=== PATIENT | female | born 1940 | race Caucasian/White ===

== ENCOUNTER → 2016-02-19 | Outpatient (CLI) | payer OTHER, MEDICAID ==
[~2016-02-19] MED LIST: ACETAMINOPHEN-H1 TA2 PO; ASPIRIN CHILDRE81 MG PO; AUGMENTIN 875 M1 TAB PO; BACTROBAN OINT22 GM PO; CLARITIN10 MG PO; COZAAR100 MG PO; COZAAR50 M1 PO; CRESTOR10 MG PO; CRESTOR20 M1 PO; CRESTOR5 MG PO; DARVOCET N 1001 TAB PO; DIAZEPAM5 MG/5 M1 PO; DILANTIN PO; DITROPAN XL5 MG PO; EVISTA60 MG PO; HUMALOG100 U/ML SC; IMDUR SA30 MG PO; JANUVIA25 MG PO; JANUVIA50 MG PO; KEFLEX500 MG PO; LANTUS100 U/ML SC; LANTUS100 U/ML SQ; LEVEMIR10 ML SC; LIPITOR40 MG PO; LOPRESSOR25 MG PO; MAPAP325 MG PO; MECLIZINE HCL25 M2 PO; MIDODRINE HCL5 M1 PO; NEURONTIN300 MG PO; NEXIUM40 MG PO; NITROLINGUAL NAS; NORVASC5 MG PO; OMEPRAZOLE20 M2 PO; OXYBUTYNIN5 MG PO; PAROXETINE10 MG PO; PLAVIX75 M1 PO; PLAVIX75 MG PO; PROAIR HFA8.5 GM IH; RANEXA1000 MG PO; SYNTHROID,LEV100 MCG PO; TRAD5TAB1 PO; TRESIBA FL100 UNIT/1 SQ; VITAMIN C500 M4 PO; VITAMIN D1000 IU PO; ZOFRAN ODT4 MG SL
--- NOTE | ~2016-02-19 | PF ---
[place], [place] PULMONARY FUNCTION TEST [facility]: [id number] UNIT #: [id number] ROOM: DOCTOR: TEE RAMIREZ MD,HERRERA BIRTHDATE: [birth year] DOS: 02/19/2016 SPIROMETRY ORDERED BY: Dr. Tovar HISTORY: The patient was recorded as a 75-year-old outpatient, female, height of 62 inches, weight of 166 pounds. BMI noted at 29.9. The test was done for assessment of symptoms of shortness of breath with productive cough and frequent wheezing. The patient was not noted with any past history of tobacco use as well. Spirometry for this patient shows FVC of 1.75 liters at 67% predicted value, mild to moderately decreased. The FEV1 was recorded at 1.34 liters at 69% predicted value, mildly decreased with mild improvement occurred for the patient with bronchodilator of 11%, which does not meet ATS criteria of improvement in the FEV1. Ratio of FEV1/FVC was recorded at 76%. Flow volume was suggestive of obstructive airway pattern. FINAL IMPRESSION: The test was suggestive of mild obstructive lung disease for the patient. Clinical correlation would be advised. HERRERA OLIVEIRA MD CM:PFREPORT:PULMONARY FUNCTION TEST [id number] HERRERA RAMIREZ MD
== END | disposition home or self-care (01) ==
LOC: CP 10:14
DX: R06.02 Shortness of breath (principal)

== ENCOUNTER → 2016-02-21 | Outpatient (CLI) | payer OTHER, MEDICAID | END | disposition home or self-care (01) | LOC: CARD 01:14 | DX: R06.02 Shortness of breath (principal) ==

== ENCOUNTER → 2016-06-03 | Outpatient (CLI) | payer OTHER, MEDICAID ==
[2016-06-03 10:56] LABS: FERRITIN 52.1 ng/mL (10.0-291.0)
== END | disposition home or self-care (01) ==
LOC: LAB 08:41
PROVIDERS: Internal Medicine
DX: R89.9 Unspecified abnormal finding in specimens from other organs, systems and tissues (principal); D63.8 Anemia in other chronic diseases classified elsewhere

== ENCOUNTER → 2016-06-18 | Day surgery (SDC) | payer OTHER, MEDICAID ==
[~2016-06-18] MED LIST changes: +COZAAR25 M1 PO; +STIOLTO RESPIMAT4 GM IH; +TYLENOL EXTRA500 M2 PO
--- NOTE | ~2016-06-18 | PROC NOTE ---
[place], [place] PROCEDURE NOTE NAME: MARIA DEL CARMEN PLATA UNIT #: [id number] ROOM: DOCTOR: SIMON GARRETT MD,RENA BIRTHDATE: [birth year] DOS: 06/18/2016 Bone marrow aspiration performed because of the indication of anemia. The patient placed in the right lateral position, left posterior iliac vein crest area was cleaned with Betadine and alcohol. Novocain injected. The periosteum was infiltrated with Novocain. Bone marrow aspiration obtained. The patient tolerated the procedure well and left. ISAÍAS MONTES MD CM:PROCNOTE:PROCEDURE NOTE [id number] RENA GARRETT MD
[2016-06-18 08:14] VITALS: BP 157/47
[2016-06-18 09:01] LABS: HEMATOCRIT 24.6 % (37.0-47.0); HEMOGLOBIN 8.3 g/dl (12.0-16.0); MEAN CELL VOLUME 103.8 fl (81.0-99.0); MEAN CORPUSCULAR HGB CONC 33.7 g/dl (33.0-37.0); MEAN PLATELET VOLUME 10.3 fl (9.6-12.3); PLATELET COUNT AUTOMATED 82 10*3/uL (130-400); RED BLOOD COUNT 2.37 10*6/uL (4.10-5.10); WHITE BLOOD COUNT 5.7 10*3/uL (4.8-10.8)
[2016-06-18 09:48] LABS: ATYPICAL LYMPHS 1 % (0-0); EOSINOPHIL # 0.2 10*3/uL (0-0.4); EOSINOPHILS 4 % (1-4); LYMPHOCYTE # 1.2 10*3/uL (1.3-4.4); METAMYELOCYTES 1 % (0-0); MONOCYTE # 0.5 10*3/uL (0.1-1.0); NEUTROPHIL # 3.8 10*3/uL (2.3-7.9); NEUTROPHILS 66 % (47-73); PLATELET SUFFICIENCY LOW (NORMAL); TOTAL CELLS COUNTED 100 #CELLS
[2016-06-18 09:49] LABS: HYPOCHROMIA SLIGHT
== END | disposition home or self-care (01) ==
LOC: SDC 07:53
PROVIDERS: Internal Medicine
DX: D64.9 Anemia, unspecified (principal); I25.2 Old myocardial infarction; J44.9 Chronic obstructive pulmonary disease, unspecified; F41.9 Anxiety disorder, unspecified; I10 Essential (primary) hypertension; E03.9 Hypothyroidism, unspecified; Z86.73 Personal history of transient ischemic attack (TIA), and cerebral infarction without residual deficits; Z90.710 Acquired absence of both cervix and uterus; J45.909 Unspecified asthma, uncomplicated; E11.40 Type 2 diabetes mellitus with diabetic neuropathy, unspecified; Z82.49 Family history of ischemic heart disease and other diseases of the circulatory system; Z95.818 Presence of other cardiac implants and grafts

== ENCOUNTER 2016-06-30 10:11 | Emergency (ER) | payer OTHER, MEDICAID ==
[~2016-06-30] VITALS: Wt 69.4 kg
[2016-06-30 10:28] VITALS: BP 132/97
[2016-06-30] MEDS ORDERED: NOVOLOG10 ML SC (10:30)
[2016-06-30] MEDS ORDERED: METOPROLOL SUCC25 M2 PO (10:31)
[2016-06-30] MEDS ORDERED: MUCINEX ER600 MG PO (10:35)
[2016-06-30] MEDS ORDERED: AMOXICILLIN500 M2 PO (10:35)
[2016-06-30] MEDS ORDERED: IRON325 M2 PO (10:35)
[2016-06-30 11:09] LABS: HEMATOCRIT 26.2 % (37.0-47.0); HEMOGLOBIN 8.8 g/dl (12.0-16.0); MEAN CELL VOLUME 103.6 fl (81.0-99.0); MEAN CORPUSCULAR HGB 34.8 pg (27.0-31.0); MEAN CORPUSCULAR HGB CONC 33.6 g/dl (33.0-37.0); PLATELET COUNT AUTOMATED 82 10*3/uL (130-400); RED BLOOD COUNT 2.53 10*6/uL (4.10-5.10); RED CELL DISTRI WIDTH 16.5 % (0-14.5); WHITE BLOOD COUNT 4.8 10*3/uL (4.8-10.8)
[2016-06-30 11:21] LABS: PROTHROMBIN TIME 10.9 SECONDS (9.0-12.4)
[2016-06-30 11:27] LABS: ALBUMIN 3.2 gm/dl (3.1-4.5); ALKALINE PHOSPHATASE 60 U/L (45-117); BILIRUBIN, TOTAL 0.6 mg/dl (0.2-1.0); BUN 15 mg/dl (7-24); CARBON DIOXIDE 25 mmol/L (21-32); CHLORIDE 106 mmol/L (98-107); CKMB 1.6 ng/ml (0.5-3.6); CPK 38 U/L (26-192); EST GLOM FILT AFRICAN AMERICAN 46 ml/min; GLUCOSE 98 mg/dL (65-99); MAGNESIUM 1.9 mg/dL (1.5-2.1); SGOT/AST 20 IU/L (3-35); SGPT/ALT 14 U/L (12-78); SODIUM 139 mmol/L (136-145)
[2016-06-30 11:28] LABS: BASOPHILS 1 % (0-1); C-REACTIVE PROTEIN < 0.29 MG/DL (0-0.3); EOSINOPHIL # 0.1 10*3/uL (0-0.4); EOSINOPHILS 2 % (1-4); LYMPHOCYTE # 1.9 10*3/uL (1.3-4.4); MONOCYTE # 0.6 10*3/uL (0.1-1.0); NEUTROPHIL # 2.2 10*3/uL (2.3-7.9); NEUTROPHILS 45 % (47-73); PLATELET SUFFICIENCY LOW (NORMAL); POLYCHROMASIA SLIGHT; TOTAL CELLS COUNTED 100 #CELLS; TROPONIN I < 0.015 ng/ml (<0.045)
[2016-06-30] MEDS ORDERED: ROBITUSSIN AC 110 ML PO (13:03)
[2016-06-30] MEDS ORDERED: PREDNISONE10 MG PO (13:04)
[2016-06-30] MEDS ORDERED: ZITHROMAX250 MG PO (13:04)
== END 2016-06-30 14:03 | disposition home or self-care (01) ==
LOC: ED 10:11
PROVIDERS: Nurse Practitioner Family
DX: J40 Bronchitis, not specified as acute or chronic (principal); I12.9 Hypertensive chronic kidney disease with stage 1 through stage 4 chronic kidney disease, or unspecified chronic kidney disease; N18.3 Chronic kidney disease, stage 3 (moderate); E03.9 Hypothyroidism, unspecified; I25.10 Atherosclerotic heart disease of native coronary artery without angina pectoris; K21.9 Gastro-esophageal reflux disease without esophagitis; E78.5 Hyperlipidemia, unspecified; E11.40 Type 2 diabetes mellitus with diabetic neuropathy, unspecified; Z86.73 Personal history of transient ischemic attack (TIA), and cerebral infarction without residual deficits; Z95.5 Presence of coronary angioplasty implant and graft; Z90.49 Acquired absence of other specified parts of digestive tract; Z79.4 Long term (current) use of insulin

== ENCOUNTER → 2016-07-18 | Day surgery (SDC) | payer OTHER, MEDICAID ==
[~2016-07-18] VITALS: Ht 157.4 cm; Wt 69.4 kg
[~2016-07-18] MED LIST changes: +AMOXICILLIN500 M2 PO; +IRON325 M2 PO; +METOPROLOL SUCC25 M2 PO; +MUCINEX ER600 MG PO; +NOVOLOG10 ML SC; +PREDNISONE10 MG PO; +ROBITUSSIN AC 110 ML PO; +ZITHROMAX250 MG PO
--- NOTE | ~2016-07-18 | PROC NOTE ---
[place], [place] PROCEDURE NOTE NAME: MARIA DEL CARMEN PLATA [facility] #: [id number] UNIT #: [id number] ROOM: DOCTOR: TIMOTHY EMERY MD BIRTHDATE: [birth year] DOS: 07/18/2016 PREOPERATIVE DIAGNOSIS: Anemia. POSTOPERATIVE DIAGNOSIS: Anemia. PROCEDURE: EGD with colonoscopy. ENDOSCOPIST: Timothy Emery MD GRADUATE INTERNSHIP: MS3. ANESTHESIA: MAC. INDICATIONS: This is a 75-year-old lady who is here for a workup for anemia and the primary care physician is requesting an EGD and a colonoscopy. The procedure and its complications were explained to the patient in detail preoperatively. Complications that were discussed included but were not limited to bleeding, missed lesions, colon and stomach perforation. She agreed to proceed. DESCRIPTION OF PROCEDURE: After identifying the patient, the patient was brought to the endoscopy suite and placed in the left lateral position. After IV sedation was administered, a bite block was placed, and it was decided to proceed with the EGD first. An adult gastroscope was advanced into the pharynx, after it was inserted into the mouth and advanced into the esophagus, stomach and the first 2 parts of the duodenum. There was found to be some duodenitis with no active bleeding that could be seen. Upon withdrawal of the scope in the stomach, it was retroflexed and the rest of the stomach was visualized to be within normal limits. There were no mucosal lesions seen and no bleeding. The scope was withdrawn and the esophagus was visualized and that was found to be normal. At this point, attention was turned towards the colonoscopy. A digital rectal exam was performed and this was within normal limits. An adult colonoscope was now introduced into the anal canal and advanced sequentially into the rectum, sigmoid colon, descending colon and up to the transverse colon up to the hepatic flexure. Despite multiple attempts and multiple change in position, the scope could not be advanced beyond the hepatic flexure. At this point, the scope was withdrawn. There were no mucosal lesions that could be identified identify any bleeding. There was no diverticulosis. No polyps. The scope was withdrawn and the patient was taken to the recovery room in a stable fashion. There were no complications. Dr. Timothy Emery, the attending surgeon, was present throughout the operating case. Based on these findings, the patient is recommended to have another colonoscopy in 2 months if there was no change in the anemia or proceed with a CT colonography or a barium enema. These findings will be discussed with the patient in the office and I have already talked about this patient's findings to the patient's family. [place], [place] PROCEDURE NOTE NAME: MARIA DEL CARMEN PLATA UNIT #: [id number] ROOM: DOCTOR: TIMOTHY EMERY MD BIRTHDATE: [birth year] Timothy Emery MD CM:PROCNOTE:PROCEDURE NOTE [id number] TIMOTHY EMERY MD
[2016-07-18 09:17] VITALS: BP 179/58
[2016-07-18 10:13] VITALS: BP 110/42
[2016-07-18 10:25] VITALS: BP 136/41
[2016-07-18 10:41] VITALS: BP 161/54
== END | disposition home or self-care (01) ==
LOC: SDC 07-16 13:15
DX: D64.9 Anemia, unspecified (principal); K29.80 Duodenitis without bleeding; I25.2 Old myocardial infarction; J44.9 Chronic obstructive pulmonary disease, unspecified; F41.9 Anxiety disorder, unspecified; I10 Essential (primary) hypertension; E03.9 Hypothyroidism, unspecified; Z86.73 Personal history of transient ischemic attack (TIA), and cerebral infarction without residual deficits; J45.909 Unspecified asthma, uncomplicated; E11.40 Type 2 diabetes mellitus with diabetic neuropathy, unspecified; Z98.49 Cataract extraction status, unspecified eye; Z90.710 Acquired absence of both cervix and uterus; Z95.818 Presence of other cardiac implants and grafts; Z80.9 Family history of malignant neoplasm, unspecified; Z82.49 Family history of ischemic heart disease and other diseases of the circulatory system; Z53.8 Procedure and treatment not carried out for other reasons

== ENCOUNTER → 2016-08-11 | Outpatient (CLI) | payer OTHER, MEDICAID ==
[2016-08-11 14:10] LABS: HEMATOCRIT 25.7 % (37.0-47.0); HEMOGLOBIN 8.4 g/dl (12.0-16.0); MEAN CELL VOLUME 102.4 fl (81.0-99.0); MEAN CORPUSCULAR HGB 33.5 pg (27.0-31.0); MEAN CORPUSCULAR HGB CONC 32.7 g/dl (33.0-37.0); MEAN PLATELET VOLUME 11.2 fl (9.6-12.3); PLATELET COUNT AUTOMATED 92 10*3/uL (130-400); RED BLOOD COUNT 2.51 10*6/uL (4.10-5.10); RED CELL DISTRI WIDTH 15.8 % (0-14.5); WHITE BLOOD COUNT 3.8 10*3/uL (4.8-10.8)
[2016-08-11 14:26] LABS: BILIRUBIN, TOTAL 0.4 mg/dl (0.2-1.0); POTASSIUM 4.4 mmol/L (3.5-5.1); TOTAL PROTEIN 6.1 gm/dL (6.4-8.2)
[2016-08-11 14:34] LABS: BASOPHILS 1 % (0-1); EOSINOPHIL # 0.1 10*3/uL (0-0.4); EOSINOPHILS 2 % (1-4); LYMPHOCYTE # 1.6 10*3/uL (1.3-4.4); MONOCYTE # 0.9 10*3/uL (0.1-1.0); NEUTROPHIL # 1.3 10*3/uL (2.3-7.9); NEUTROPHILS 33 % (47-73); PLATELET SUFFICIENCY LOW (NORMAL); TOTAL CELLS COUNTED 100 #CELLS
[2016-08-11 14:35] LABS: TEAR DROP CELLS FEW
== END | disposition home or self-care (01) ==
LOC: LAB 13:42
PROVIDERS: Surgery
DX: D64.9 Anemia, unspecified (principal); R42 Dizziness and giddiness

== ENCOUNTER → 2016-08-28 | Outpatient (CLI) | payer OTHER, MEDICAID ==
[~2016-08-28] MED LIST changes: +PROTONIX40 MG PO; +ZOLOFT50 MG PO
[2016-08-28 10:40] LABS: ALBUMIN 2.7 gm/dl (3.1-4.5); BILIRUBIN, TOTAL 0.4 mg/dl (0.2-1.0); POTASSIUM 4.2 mmol/L (3.5-5.1); THYROXINE (T4) TOTAL 12.2 ug/dl (4.8-13.9); TOTAL PROTEIN 6.2 gm/dL (6.4-8.2)
[2016-08-28 10:48] LABS: THYROID STIM HORMONE (HS) 0.366 uIU/ml (0.358-4.75)
== END ==
LOC: LAB 09:01
PROVIDERS: Internal Medicine
DX: E03.9 Hypothyroidism, unspecified (principal); R89.9 Unspecified abnormal finding in specimens from other organs, systems and tissues; D64.9 Anemia, unspecified; E11.9 Type 2 diabetes mellitus without complications

== ENCOUNTER 2016-09-03 18:55 | Inpatient (IN) | payer OTHER, MEDICAID ==
[~2016-09-03] VITALS: Ht 157.5 cm; Wt 65.8 kg
[2016-09-03 00:15] VITALS: BP 167/48
[2016-09-03 00:30] VITALS: BP 162/42
[2016-09-03 00:45] VITALS: BP 178/42
[2016-09-03 01:00] VITALS: BP 130/50; BP 168/45
[2016-09-03 19:00] VITALS: BP 101/49
[2016-09-03 19:49] LABS: HEMATOCRIT 22.5 % (37.0-47.0); HEMOGLOBIN 7.4 g/dl (12.0-16.0); MEAN CELL VOLUME 101.8 fl (81.0-99.0); MEAN CORPUSCULAR HGB 33.5 pg (27.0-31.0); MEAN CORPUSCULAR HGB CONC 32.9 g/dl (33.0-37.0); MEAN PLATELET VOLUME 11.7 fl (9.6-12.3); PLATELET COUNT AUTOMATED 131 10*3/uL (130-400); RED BLOOD COUNT 2.21 10*6/uL (4.10-5.10); RED CELL DISTRI WIDTH 15.5 % (0-14.5); WHITE BLOOD COUNT 5.4 10*3/uL (4.8-10.8)
[2016-09-03 20:07] LABS: BILIRUBIN, TOTAL 0.4 mg/dl (0.2-1.0); CHLORIDE 104 mmol/L (98-107); SGOT/AST 14 IU/L (3-35); SODIUM 138 mmol/L (136-145); TOTAL PROTEIN 6.2 gm/dL (6.4-8.2)
[2016-09-03 20:11] LABS: BASOPHIL # 0.1 10*3/uL (0-0.1); BASOPHILS 1 % (0-1); EOSINOPHIL # 0.3 10*3/uL (0-0.4); EOSINOPHILS 5 % (1-4); LYMPHOCYTE # 1.6 10*3/uL (1.3-4.4); METAMYELOCYTES 3 % (0-0); MONOCYTE # 0.2 10*3/uL (0.1-1.0); NEUTROPHIL # 3.2 10*3/uL (2.3-7.9); NEUTROPHILS 59 % (47-73); TOTAL CELLS COUNTED 100 #CELLS; TROPONIN I < 0.015 ng/ml (<0.045)
[2016-09-03 20:12] LABS: PLATELET SUFFICIENCY NORMAL (NORMAL); POLYCHROMASIA SLIGHT
[2016-09-03 20:26] LABS: BUN 31 mg/dl (7-24); CARBON DIOXIDE 19 mmol/L (21-32); EST GLOM FILT AFRICAN AMERICAN 29 ml/min; GLUCOSE 242 mg/dL (65-99)
[2016-09-03 20:27] LABS: ALBUMIN 2.5 gm/dl (3.1-4.5); ALKALINE PHOSPHATASE 84 U/L (45-117); MAGNESIUM 1.8 mg/dL (1.5-2.1); SGPT/ALT 12 U/L (12-78)
[2016-09-03 20:30] LABS: THYROID STIM HORMONE (HS) 0.258 uIU/ml (0.358-4.75)
[2016-09-03 20:51] LABS: BILIRUBIN NEGATIVE (NEGATIVE); BLOOD 2+ (NEGATIVE); CLARITY CLOUDY (CLEAR); COLOR YELLOW (YELLOW); GLUCOSE NEGATIVE (NEGATIVE); KETONE NEGATIVE (NEGATIVE); LEUKO ESTERASE 3+ (NEGATIVE); NITRITE NEGATIVE (NEGATIVE); PH 5.5 (5.0-9.0); PROTEIN 2+ (NEGATIVE); SPECIFIC GRAVITY 1.015 (1.005-1.030); UROBILINOGEN 0.2 E.U./dl (0.2-1.0)
[2016-09-03 21:10] LABS: URINE REFLEX COMMENT YES (NO); WBC TNTC wbc/hpf (0-5)
[2016-09-03 23:30] VITALS: BP 161/57
[2016-09-03 23:35] LABS: FREE T4 1.58 ng/dl (0.76-1.46)
[2016-09-03 23:36] LABS: TROPONIN I < 0.015 ng/ml (<0.045)
[2016-09-04] VITALS (10 sets, daily range): BP systolic 130–178; BP diastolic 40–65
[2016-09-04 03:19] LABS: HEMATOCRIT 28.2 % (37.0-47.0)
[2016-09-04 03:21] LABS: HEMOGLOBIN 9.6 g/dl (12.0-16.0)
[2016-09-04 06:03] LABS: HEMATOCRIT 27.3 % (37.0-47.0); HEMOGLOBIN 9.2 g/dl (12.0-16.0); MEAN CORPUSCULAR HGB 33.1 pg (27.0-31.0); MEAN CORPUSCULAR HGB CONC 33.7 g/dl (33.0-37.0); MEAN PLATELET VOLUME 11.6 fl (9.6-12.3); PLATELET COUNT AUTOMATED 126 10*3/uL (130-400); RED BLOOD COUNT 2.78 10*6/uL (4.10-5.10); RED CELL DISTRI WIDTH 16.6 % (0-14.5); WHITE BLOOD COUNT 7.5 10*3/uL (4.8-10.8)
[2016-09-04 06:12] LABS: ALBUMIN 2.6 gm/dl (3.1-4.5); PHOSPHOROUS 1.7 mg/dL (2.5-4.9); POTASSIUM 4.4 mmol/L (3.5-5.1); TOTAL PROTEIN 6.3 gm/dL (6.4-8.2)
[2016-09-04 06:17] LABS: MEAN CELL VOLUME 98.2 fl (81.0-99.0)
[2016-09-04 06:39] LABS: PROTHROMBIN TIME 10.7 SECONDS (9.0-12.4)
[2016-09-04 06:54] LABS: VITAMIN D, 25-HYDROXY 40.4 ng/mL (30-100)
[2016-09-04 06:55] LABS: FOLIC ACID 10.55 ng/mL (>5.38)
[2016-09-04 07:07] LABS: BASOPHIL # 0.1 10*3/uL (0-0.1); BASOPHILS 1 % (0-1); EOSINOPHIL # 0.2 10*3/uL (0-0.4); EOSINOPHILS 3 % (1-4); HYPOCHROMIA SLIGHT; LYMPHOCYTE # 0.6 10*3/uL (1.3-4.4); METAMYELOCYTES 3 % (0-0); MONOCYTE # 0.9 10*3/uL (0.1-1.0); NEUTROPHIL # 5.5 10*3/uL (2.3-7.9); NEUTROPHILS 73 % (47-73); PLATELET SUFFICIENCY LOW (NORMAL); ROULEAUX MODERATE; TOTAL CELLS COUNTED 100 #CELLS
[2016-09-05] VITALS: BP 128/67
[2016-09-05 05:57] LABS: HEMOGLOBIN 9.1 g/dl (12.0-16.0); MEAN CELL VOLUME 97.1 fl (81.0-99.0); MEAN CORPUSCULAR HGB 32.7 pg (27.0-31.0); MEAN CORPUSCULAR HGB CONC 33.7 g/dl (33.0-37.0); MEAN PLATELET VOLUME 11.3 fl (9.6-12.3); PLATELET COUNT AUTOMATED 120 10*3/uL (130-400); RED BLOOD COUNT 2.78 10*6/uL (4.10-5.10); WHITE BLOOD COUNT 7.2 10*3/uL (4.8-10.8)
[2016-09-05 06:35] LABS: PROTHROMBIN TIME 10.7 SECONDS (9.0-12.4)
[2016-09-05 07:14] LABS: BASOPHIL # 0.1 10*3/uL (0-0.1); BASOPHILS 1 % (0-1); EOSINOPHIL # 0.4 10*3/uL (0-0.4); EOSINOPHILS 5 % (1-4); LYMPHOCYTE # 1.5 10*3/uL (1.3-4.4); METAMYELOCYTES 1 % (0-0); MYELOCYTES 4 % (0-0); NEUTROPHIL # 3.9 10*3/uL (2.3-7.9); NEUTROPHILS 54 % (47-73); PLATELET SUFFICIENCY LOW (NORMAL); POLYCHROMASIA SLIGHT; TOTAL CELLS COUNTED 100 #CELLS
[2016-09-05 08:00] VITALS: BP 152/52
[2016-09-05 12:00] VITALS: BP 114/38
[2016-09-05] MEDS ORDERED: CEFUROXIME AXE250 MG PO (13:37)
== END 2016-09-05 15:35 | disposition home or self-care (01) | DRG 811 ==
LOC: ED 18:55 → 4E 22:00 → EDHOLD 22:00 → 4E 22:17
PROVIDERS: Emergency Medicine Emergency Medical Services; Internal Medicine; Internal Medicine Hospice and Palliative Medicine
PROC: 30233N1 Transfusion of Nonautologous Red Blood Cells into Peripheral Vein, Percutaneous Approach (ICD-10-PCS; principal; 2016-09-03)
DX: D53.9 Nutritional anemia, unspecified (principal); N17.0 Acute kidney failure with tubular necrosis; E43 Unspecified severe protein-calorie malnutrition; N39.0 Urinary tract infection, site not specified; I25.2 Old myocardial infarction; Z86.73 Personal history of transient ischemic attack (TIA), and cerebral infarction without residual deficits; I25.10 Atherosclerotic heart disease of native coronary artery without angina pectoris; K21.9 Gastro-esophageal reflux disease without esophagitis; E78.5 Hyperlipidemia, unspecified; E03.9 Hypothyroidism, unspecified; N32.81 Overactive bladder; I45.10 Unspecified right bundle-branch block; N18.3 Chronic kidney disease, stage 3 (moderate); E11.22 Type 2 diabetes mellitus with diabetic chronic kidney disease; R31.9 Hematuria, unspecified; E05.90 Thyrotoxicosis, unspecified without thyrotoxic crisis or storm; E11.65 Type 2 diabetes mellitus with hyperglycemia; E11.40 Type 2 diabetes mellitus with diabetic neuropathy, unspecified; E55.9 Vitamin D deficiency, unspecified; F32.9 Major depressive disorder, single episode, unspecified; E11.319 Type 2 diabetes mellitus with unspecified diabetic retinopathy without macular edema; Z90.710 Acquired absence of both cervix and uterus; Z90.49 Acquired absence of other specified parts of digestive tract; Z98.49 Cataract extraction status, unspecified eye; Z83.3 Family history of diabetes mellitus; Z82.49 Family history of ischemic heart disease and other diseases of the circulatory system; Z84.1 Family history of disorders of kidney and ureter; Z80.1 Family history of malignant neoplasm of trachea, bronchus and lung; Z80.8 Family history of malignant neoplasm of other organs or systems; Z80.0 Family history of malignant neoplasm of digestive organs; Z79.82 Long term (current) use of aspirin; Z79.899 Other long term (current) drug therapy; Z79.4 Long term (current) use of insulin; Z68.26 Body mass index [BMI] 26.0-26.9, adult

== ENCOUNTER 2016-10-02 16:37 | Inpatient (IN) | payer OTHER, MEDICAID ==
[2016-10-02] VITALS (9 sets, daily range): BP systolic 124–161; BP diastolic 23–80
[~2016-10-02] VITALS: Ht 157.5 cm; Wt 67.6 kg
--- NOTE | ~2016-10-02 | CON ---
[place], [place] REPORT OF CONSULTATION NAME: MARIA DEL CARMEN PLATA [facility] #: [id number] UNIT #: [id number] ROOM: 523 DOCTOR: DEEPALI LINDA MD BIRTHDATE: [birth year] DOS: 10/03/2016 HISTORY OF PRESENT ILLNESS: The patient is a pleasant 76-year-old [place] woman who was seen in her PCP's office because of complaints of fatigue and weakness for the past week and subsequently, she was asked to go to the Emergency Department. She recently had anemia and bone marrow biopsy done. She was on iron supplements. She also had scope done by Dr. Emery few months ago, but unable to fully advance the scope to ileocecal valve. She had some melena which was cleared. Further workup revealed that she was anemic and consulted for further evaluation and management. PAST MEDICAL HISTORY: History of anemia, coronary artery disease, TB, generalized weakness, GERD, history of myocardial infarction, history of TIA, hyperlipidemia, hypothyroidism, iron deficiency, neuropathy, overactive bladder, right bundle branch block, retinopathy, severe protein-calorie malnutrition, history of stage 3 chronic kidney disease, stenosis of the left internal carotid artery, type 2 diabetes, and vitamin D deficiency. PAST SURGICAL HISTORY: Appendectomy, cataract surgery, hysterectomy, status post coronary artery stent placement. SOCIAL HISTORY: No smoking, drinking, or drug abuse. FAMILY HISTORY: Father in ____ at age 22. Mother had gynae cancer, hypertension, diabetes, and at age 62. Brother had coronary artery disease, diabetes, at age 52. Brother had ____ cancer, at age 40-50. Another brother had brain/lung cancer, at age 58 and sister had diabetes, kidney failure, at age 52. MEDICATIONS: Acetaminophen, aspirin, Lipitor, vitamin D, insulin, isosorbide, Synthroid, Tradjenta, metoprolol, midodrine, nitroglycerin, Protonix, raloxifene and ____. LABORATORY DATA: Sodium 138, potassium 4.2, chloride 111, bicarbonate 20, EGFR is 32. White count 3.7, hemoglobin 7.2, hematocrit 21.9, MCV 102.3 and platelet count 77. REVIEW OF SYSTEMS: CONSTITUTIONAL: No chills. No fatigue. No fever. No loss of appetite. No night sweats. No weakness. No weight loss. HEENT: No trouble swallowing. No loss of smell. No loss of hearing. No double vision. No pain. No discharge. ENT AND RESPIRATORY: No wheeze. No sore throat. No change in voice. No hearing loss. No nose bleed. No cough. No trouble breathing through nose. No shortness of breath. No coughing up blood. No epistaxis. CARDIOVASCULAR: No chest pain. No dizziness. No irregular heartbeat. No leg edema. No pain in legs while walking. No palpitations. No shortness of breath. DERMATOLOGIC: No acne. No hives. No laceration. No mole. No rash. ENDOCRINE: No cold intolerance. No diabetes. No fatigue. No hot flashes. No [place], [place] REPORT OF CONSULTATION NAME: MARIA DEL CARMEN PLATA UNIT #: [id number] ROOM: 523 DOCTOR: DEEPALI LINDA MD BIRTHDATE: [birth year] polydipsia. No polyuria. No urinating frequently. No weight loss. HEMATOLOGIC AND LYMPH: No fatigue. No easy bruising. GASTROENTEROLOGIC: No change in bowel habits. No indigestion. No frequent bloating. No vomiting blood. No abdominal cramping. No nausea. No heartburn. No vomiting. No abdominal pain. No dysphagia. No diarrhea. No constipation. No blood in stool. FEMALE REPRODUCTIVE: No vaginal itching. No difficulty urinating. No heavy periods. No dyspareunia. No sexually active. No dysmenorrhea. No pelvic pain. No breast pain. No nipple discharge. No abnormal vaginal discharge. No hot flashes. MUSCULOSKELETAL: No back pain. No muscle pain or weakness. No neck pain. No tingling/numbness. No swelling/bruising. No osteoporosis treatment. OPHTHALMOLOGIC: No double vision. No diminished vision. No loss of vision. UROLOGIC: No dysuria. No frequent nighttime urination. No irregular periods. No pain with urination. No difficulty urinating. No blood in urine. No frequent urination. No urinary incontinence. NEUROLOGIC: No loss of sensation in specific body area. No vertigo. No burning pain in feet. No trouble with balance. No trouble with coordination. No loss of consciousness. No loss of feeling/power. No confusion. No headache. No tingling/numbness. PSYCHOLOGIC: No tinnitus. No headaches. No shortness of breath. No weight decrease. No nausea. No vomiting. No abdominal discomfort. No constipation. No diarrhea. No depression. No anxiety. PHYSICAL EXAMINATION: GENERAL: She is a pleasant woman in no apparent distress. VITAL SIGNS: Stable. She is afebrile. HEENT: Oral mucosa appears intact. The external ears are normal in appearance. Nares are patent without lesions, exudates, erythema, or inflammation. Tongue is symmetrical. Uvula is midline. NECK AND THYROID: Neck supple without palpable masses. Trachea is midline. No thyromegaly. No carotid bruit or JVD. BREASTS: Normal. Nipples unremarkable. No drainage. No lumps felt on either side. HEART: Normal S1, S2, without significant murmur, rub, or gallop. LUNGS: Clear to auscultation and percussion with good air entry bilaterally. The patient is breathing easily without the use of accessory muscles. Diaphragmatic excursions are intact. ABDOMEN: No costovertebral angle tenderness. Soft. No organomegaly or masses. Nontender. No hernias present. Liver and spleen are not palpable. LYMPHATIC: No adenopathy noted in the cervical, supraclavicular, axillary, or inguinal regions. NEUROLOGIC: Nonfocal. Oriented to person, place, and time. MENTAL STATUS: Appropriate for mood and affect. PERIPHERAL PULSES: No varicosities. Femoral and pedal pulses are palpable. EXTREMITIES: Without cyanosis, clubbing, or edema. No gross anomalies. ASSESSMENT: 1. Pancytopenia of unknown etiology, probably secondary to ____. 2. Severe anemia, status post 2 units of packed RBC. [place], [place] REPORT OF CONSULTATION NAME: MARIA DEL CARMEN PLATA UNIT #: [id number] ROOM: 523 DOCTOR: DEEPALI LINDA MD BIRTHDATE: [birth year] 3. Hyperchloremia. 4. Hyperglycemia. 5. Coronary artery disease. PLAN: Workup has been ordered. We will review the workup. She had a bone marrow biopsy done by Dr. Cunha in June, I will review that. In the meantime, transfusion if the hemoglobin and hematocrit drops. Depending on the bone marrow report, further intervention. I had a detailed discussion with the patient about it, seemed to understand it. Ample time was given to the patient to ask me questions. We will follow. Thanks for consulting and letting me participate in the care of this interesting patient. DEEPALI LINDA MD CM:CONSTR:REPORT OF CONSULTATION 2108 10/04/16 0342 interface
--- NOTE | ~2016-10-02 | PR ---
[place], [place] PROGRESS NOTE [id number] #: [id number] ROOM: 523 DOCTOR: DEEPALI LINDA MD BIRTHDATE: [birth year] DOS: 10/05/2016 SUBJECTIVE: The patient is doing better. Denies any nausea, vomiting. Alert and oriented. PHYSICAL EXAMINATION: GENERAL: Pleasant woman in no apparent distress. VITAL SIGNS: Stable. She is afebrile. HEENT: Normocephalic, atraumatic NECK AND THYROID: Supple. No JVD, thyromegaly, or lymphadenopathy. HEART: Normal S1, S2. Regular rate and rhythm. LUNGS: Clear to auscultation and percussion. ABDOMEN: Soft. Nontender, nondistended. Bowel sounds present. EXTREMITIES: Normal ROM. No clubbing. No edema. LABORATORY DATA: White count of 4.1, hemoglobin 9.6, hematocrit 29.0, platelet count of 73,000. Peripheral smear shows monocytes. Bone marrow biopsy done on 06/28/2016 showed normocellular marrow with trilineage maturation with subtle dysplastic changes. 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 ASSESSMENT: 1. The patient has -5q syndrome (MDS) myelodysplastic syndrome. 2. Pancytopenia secondary to #1. 3. Chronic kidney disease. 4. Coronary artery disease. 5. Status post packed RB transfusion. LABORATORY DATA: EGFR of 34, TIBC 251, iron of 114, saturation 45. PLAN: The patient has -5 q syndrome, which probably is causing MDS. We will be starting her on medication for that. She will be going home soon, we will follow as an outpatient and treatment will be initiated at that time. We had detailed discussion with the patient about it, seemed to understand. Ample time was given to the patient to ask me questions. [place], [place] PROGRESS NOTE NAME: MARIA DEL CARMEN PLATA UNIT #: [id number] ROOM: 523 DOCTOR: DEEPALI LINDA MD BIRTHDATE: [birth year] DEEPALI LINDA MD CM:PNTRANS [id number] DEEPALI LINDA MD 10/06/16 0029 interface
[~2016-10-02 16:37] MED LIST changes: +CEFUROXIME AXE250 MG PO
[2016-10-02 17:38] LABS: HEMATOCRIT 21.9 % (37.0-47.0); HEMOGLOBIN 7.2 g/dl (12.0-16.0); MEAN CELL VOLUME 102.3 fl (81.0-99.0); MEAN CORPUSCULAR HGB 33.6 pg (27.0-31.0); MEAN CORPUSCULAR HGB CONC 32.9 g/dl (33.0-37.0); MEAN PLATELET VOLUME 11.5 fl (9.6-12.3); PLATELET COUNT AUTOMATED 77 10*3/uL (130-400); RED BLOOD COUNT 2.14 10*6/uL (4.10-5.10); RED CELL DISTRI WIDTH 17.8 % (0-14.5); WHITE BLOOD COUNT 3.7 10*3/uL (4.8-10.8)
[2016-10-02 17:47] LABS: PROTHROMBIN TIME 10.4 SECONDS (9.0-12.4)
[2016-10-02 17:56] LABS: ALBUMIN 2.7 gm/dl (3.1-4.5); ALKALINE PHOSPHATASE 100 U/L (45-117); BILIRUBIN, TOTAL 0.2 mg/dl (0.2-1.0); BUN 27 mg/dl (7-24); C-REACTIVE PROTEIN < 0.29 MG/DL (0-0.3); CARBON DIOXIDE 20 mmol/L (21-32); CHLORIDE 111 mmol/L (98-107); CKMB 1.3 ng/ml (0.5-3.6); CPK 22 U/L (26-192); EST GLOM FILT AFRICAN AMERICAN 39 ml/min; GLUCOSE 189 mg/dL (65-99); MAGNESIUM 1.8 mg/dL (1.5-2.1); POTASSIUM 4.2 mmol/L (3.5-5.1); SGOT/AST 13 IU/L (3-35); SGPT/ALT 13 U/L (12-78); SODIUM 138 mmol/L (136-145); TOTAL PROTEIN 5.9 gm/dL (6.4-8.2); TROPONIN I < 0.015 ng/ml (<0.045)
[2016-10-02 18:02] LABS: BASOPHILS 1 % (0-1); EOSINOPHILS 1 % (1-4); LYMPHOCYTE # 1.7 10*3/uL (1.3-4.4); MONOCYTE # 0.6 10*3/uL (0.1-1.0); NEUTROPHIL # 1.3 10*3/uL (2.3-7.9); NEUTROPHILS 35 % (47-73); TOTAL CELLS COUNTED 100 #CELLS
[2016-10-02 18:03] LABS: BURR CELLS FEW; PLATELET SUFFICIENCY LOW (NORMAL)
[2016-10-02 18:14] LABS: BILIRUBIN NEGATIVE (NEGATIVE); BLOOD 2+ (NEGATIVE); CLARITY CLOUDY (CLEAR); COLOR YELLOW (YELLOW); GLUCOSE NEGATIVE (NEGATIVE); KETONE NEGATIVE (NEGATIVE); LEUKO ESTERASE 3+ (NEGATIVE); NITRITE NEGATIVE (NEGATIVE); PH 5.5 (5.0-9.0); PROTEIN 1+ (NEGATIVE); SPECIFIC GRAVITY <= 1.005 (1.005-1.030); UROBILINOGEN 0.2 E.U./dl (0.2-1.0)
[2016-10-02 18:20] LABS: URINE REFLEX COMMENT YES (NO); WBC TNTC wbc/hpf (0-5)
[2016-10-02] MEDS ORDERED: NITROGLYCERIN4.1 GM TL (21:10)
[2016-10-03] VITALS: BP 136/48
[2016-10-03 01:00] VITALS: BP 136/42
[2016-10-03 06:20] LABS: HEMATOCRIT 27.3 % (37.0-47.0); HEMOGLOBIN 9.1 g/dl (12.0-16.0); MEAN CORPUSCULAR HGB 32.5 pg (27.0-31.0); MEAN CORPUSCULAR HGB CONC 33.3 g/dl (33.0-37.0); MEAN PLATELET VOLUME 11.1 fl (9.6-12.3); PLATELET COUNT AUTOMATED 72 10*3/uL (130-400); RED CELL DISTRI WIDTH 16.7 % (0-14.5); WHITE BLOOD COUNT 4.2 10*3/uL (4.8-10.8)
[2016-10-03 06:23] LABS: MEAN CELL VOLUME 97.5 fl (81.0-99.0)
[2016-10-03 06:44] LABS: MAGNESIUM 1.6 mg/dL (1.5-2.1); PHOSPHOROUS 3.5 mg/dL (2.5-4.9); POTASSIUM 4.4 mmol/L (3.5-5.1)
[2016-10-03 06:51] LABS: PROTHROMBIN TIME 10.6 SECONDS (9.0-12.4)
[2016-10-03 06:56] LABS: THYROID STIM HORMONE (HS) 0.24 uIU/ml (0.358-4.75)
[2016-10-03 07:08] LABS: ATYPICAL LYMPHS 1 % (0-0); BASOPHILS 1 % (0-1); EOSINOPHILS 1 % (1-4); LYMPHOCYTE # 1.8 10*3/uL (1.3-4.4); MONOCYTE # 0.4 10*3/uL (0.1-1.0); NEUTROPHIL # 1.9 10*3/uL (2.3-7.9); NEUTROPHILS 45 % (47-73); TOTAL CELLS COUNTED 100 #CELLS
[2016-10-03 07:09] LABS: RETICULOCYTE % 2.06 % (0.50-2.50)
[2016-10-03 07:10] LABS: PLATELET SUFFICIENCY LOW (NORMAL); POLYCHROMASIA SLIGHT; ROULEAUX SLIGHT
[2016-10-03 07:13] LABS: RET-He 37.1 pg (32.1-37.9)
[2016-10-03 07:33] LABS: HEMOGLOBIN A1c 6.9 % (4.8-5.6)
[2016-10-03 07:36] LABS: FOLIC ACID 12.18 ng/mL (>5.38); VITAMIN D, 25-HYDROXY 41.6 ng/mL (30-100)
[2016-10-03 08:00] VITALS: BP 140/40
[2016-10-03 12:00] VITALS: BP 131/50
[2016-10-03 13:43] LABS: IRON 114 ug/dL (50-170); IRON SATURATION 45 %; UIBC 137 ug/dL (110-365)
[2016-10-03 16:00] VITALS: BP 143/37
[2016-10-03 20:00] VITALS: BP 137/71
[2016-10-04] VITALS: BP 148/73
[2016-10-04 08:00] VITALS: BP 148/50
[2016-10-04 12:00] VITALS: BP 141/40
[2016-10-04 16:00] VITALS: BP 138/33
[2016-10-04 20:00] VITALS: BP 147/42
[2016-10-05] VITALS: BP 149/45
[2016-10-05 05:56] LABS: HEMOGLOBIN 9.6 g/dl (12.0-16.0); MEAN CELL VOLUME 99.3 fl (81.0-99.0); MEAN CORPUSCULAR HGB 32.9 pg (27.0-31.0); MEAN CORPUSCULAR HGB CONC 33.1 g/dl (33.0-37.0); MEAN PLATELET VOLUME 12.3 fl (9.6-12.3); PLATELET COUNT AUTOMATED 73 10*3/uL (130-400); RED BLOOD COUNT 2.92 10*6/uL (4.10-5.10); RED CELL DISTRI WIDTH 16.5 % (0-14.5); WHITE BLOOD COUNT 4.1 10*3/uL (4.8-10.8)
[2016-10-05 06:03] LABS: POTASSIUM 4.8 mmol/L (3.5-5.1)
[2016-10-05 06:35] LABS: BASOPHILS 1 % (0-1); EOSINOPHIL # 0.1 10*3/uL (0-0.4); EOSINOPHILS 2 % (1-4); LYMPHOCYTE # 1.8 10*3/uL (1.3-4.4); MONOCYTE # 0.5 10*3/uL (0.1-1.0); MYELOCYTES 1 % (0-0); NEUTROPHIL # 1.7 10*3/uL (2.3-7.9); NEUTROPHILS 42 % (47-73); PLATELET SUFFICIENCY LOW (NORMAL); POLYCHROMASIA SLIGHT; TOTAL CELLS COUNTED 100 #CELLS
[2016-10-05 08:00] VITALS: BP 140/80
[2016-10-05 12:00] VITALS: BP 160/48
[2016-10-05] MEDS ORDERED: AMOXICILLIN500 M3 PO (12:51)
== END 2016-10-05 13:30 | disposition home health service (06) | DRG 811 ==
LOC: ED 16:37 → EDHOLD 18:51 → 5E 18:51
PROVIDERS: Emergency Medicine; Internal Medicine; Internal Medicine Hematology & Oncology
PROC: 30233N1 Transfusion of Nonautologous Red Blood Cells into Peripheral Vein, Percutaneous Approach (ICD-10-PCS; principal; 2016-10-02)
DX: D46.C Myelodysplastic syndrome with isolated del(5q) chromosomal abnormality (principal); E43 Unspecified severe protein-calorie malnutrition; D61.818 Other pancytopenia; E87.8 Other disorders of electrolyte and fluid balance, not elsewhere classified; E11.65 Type 2 diabetes mellitus with hyperglycemia; E11.22 Type 2 diabetes mellitus with diabetic chronic kidney disease; N39.0 Urinary tract infection, site not specified; Z79.4 Long term (current) use of insulin; Z79.899 Other long term (current) drug therapy; D53.9 Nutritional anemia, unspecified; B96.20 Unspecified Escherichia coli [E. coli] as the cause of diseases classified elsewhere; I25.10 Atherosclerotic heart disease of native coronary artery without angina pectoris; R31.9 Hematuria, unspecified; N18.3 Chronic kidney disease, stage 3 (moderate); F32.9 Major depressive disorder, single episode, unspecified; K21.9 Gastro-esophageal reflux disease without esophagitis; E78.5 Hyperlipidemia, unspecified; E03.9 Hypothyroidism, unspecified; E05.90 Thyrotoxicosis, unspecified without thyrotoxic crisis or storm; I45.10 Unspecified right bundle-branch block; Z90.710 Acquired absence of both cervix and uterus; Z90.49 Acquired absence of other specified parts of digestive tract; Z98.49 Cataract extraction status, unspecified eye; Z86.73 Personal history of transient ischemic attack (TIA), and cerebral infarction without residual deficits; I25.2 Old myocardial infarction; Z95.5 Presence of coronary angioplasty implant and graft; Z83.3 Family history of diabetes mellitus; Z82.49 Family history of ischemic heart disease and other diseases of the circulatory system; Z80.0 Family history of malignant neoplasm of digestive organs; Z80.1 Family history of malignant neoplasm of trachea, bronchus and lung; Z80.8 Family history of malignant neoplasm of other organs or systems; Z84.1 Family history of disorders of kidney and ureter; Z79.82 Long term (current) use of aspirin; Z68.27 Body mass index [BMI] 27.0-27.9, adult

== ENCOUNTER → 2016-10-16 | Day surgery (SDC) | payer OTHER, MEDICAID ==
[2016-10-13 08:47] VITALS: BP 142/42
[2016-10-13 10:15] LABS: HEMATOCRIT 28.1 % (37.0-47.0); HEMOGLOBIN 9.5 g/dl (12.0-16.0); MEAN CELL VOLUME 98.6 fl (81.0-99.0); MEAN CORPUSCULAR HGB 33.3 pg (27.0-31.0); MEAN CORPUSCULAR HGB CONC 33.8 g/dl (33.0-37.0); MEAN PLATELET VOLUME 12.1 fl (9.6-12.3); PLATELET COUNT AUTOMATED 57 10*3/uL (130-400); RED BLOOD COUNT 2.85 10*6/uL (4.10-5.10); RED CELL DISTRI WIDTH 16.4 % (0-14.5); WHITE BLOOD COUNT 4.1 10*3/uL (4.8-10.8)
[2016-10-13 10:17] LABS: BILIRUBIN NEGATIVE (NEGATIVE); BLOOD 1+ (NEGATIVE); CLARITY SL CLOUDY (CLEAR); COLOR YELLOW (YELLOW); GLUCOSE NEGATIVE (NEGATIVE); KETONE NEGATIVE (NEGATIVE); LEUKO ESTERASE 1+ (NEGATIVE); NITRITE NEGATIVE (NEGATIVE); PH 5.5 (5.0-9.0); UROBILINOGEN 0.2 E.U./dl (0.2-1.0)
[2016-10-13 10:30] LABS: WBC TNTC wbc/hpf (0-5)
[2016-10-13 10:32] LABS: CREATININE 1.42 mg/dL (0.55-1.02); POTASSIUM 4.2 mmol/L (3.5-5.1)
[2016-10-13 10:41] LABS: BASOPHILS 1 % (0-1); TOTAL CELLS COUNTED 100 #CELLS
[2016-10-13 10:42] LABS: PLATELET SUFFICIENCY LOW (NORMAL)
[~2016-10-16] VITALS: Ht 157.4 cm; Wt 67.6 kg
[~2016-10-16] MED LIST changes: +AMOXICILLIN500 M3 PO; +NITROGLYCERIN4.1 GM TL; +NORCO 5-325 TA1 EACH PO
--- NOTE | ~2016-10-16 | PROC NOTE ---
[place], [place] PROCEDURE NOTE NAME: MARIA DEL CARMEN PLATA [facility] #: [id number] UNIT #: [id number] ROOM: DOCTOR: TIMOTHY EMERY MD BIRTHDATE: [birth year] DOS: 10/16/2016 PREOPERATIVE DIAGNOSIS: Anemia, poor IV access. POSTOPERATIVE DIAGNOSIS: Anemia, poor IV access. PROCEDURE: Left internal and jugular MediPort placement. SURGEON: Timothy Emery MD ASSEMBLER LEATHER GOODS: MS3. ANESTHESIA: MAC. INDICATIONS: This is a 76-year-old lady with poor IV access and need for frequent blood transfusions because of anemia who is here for the above-mentioned procedure. The procedure and its complications were explained to the patient in detail preoperatively. Complications that were discussed included but were not limited to, bleeding, hemothorax, pneumothorax, infection, and prolonged pain. She agreed to proceed. DESCRIPTION OF PROCEDURE: After identifying the patient, the patient was brought to the operating suite and placed in the supine position. After IV sedation was administered, the parts were painted and draped in the usual sterile fashion and a time-out procedure was called. Local anesthesia was infiltrated and with the help of an ultrasound probe, access to the left internal jugular vein was obtained via the Seldinger technique. A guidewire was placed and this was confirmed to be in good position with the help of fluoroscopy. Thereafter, a port site was created on the anterior chest wall, 2 cm below the left clavicle after injecting local anesthesia (1% plain lidocaine). A pocket was created and through this pocket a catheter was passed with the help of introducer to the site of the left internal jugular venipuncture sheath and dilator was placed over the wire and after the wire was removed, the catheter was inserted through the sheath and was confirmed to be in good placement with the help of fluoroscopy. The catheter was then cut to size and the MediPort was attached to this. It was flushed and found to be flushing well and had good aspiration. The port was then fixed to the underlying chest wall fascia with the help of 3-0 Prolene and thereafter, the subcutaneous tissue was approximated with the help of 3-0 Vicryl in a running fashion and the skin edges were approximated with the help of 4-0 Vicryl in a running fashion. The port was accessed again with the help of the Patino needle and it was found to flush well and had good return of blood. The patient was then taken to the recovery room in a stable fashion after a dressing was placed. The patient tolerated the procedure well. There were no complications. Dr. Timothy Emery, the attending surgeon, was present throughout the operating case. The chest x-ray was ordered in the PACU for placement and for evaluation of a possible pneumothorax. [place], [place] PROCEDURE NOTE NAME: MARIA DEL CARMEN PLATA [facility] #: [id number] UNIT #: [id number] ROOM: DOCTOR: TIMOTHY EMERY MD BIRTHDATE: [birth year] Timothy Emery MD CM:PROCNOTE:PROCEDURE NOTE [id number] TIMOTHY EMERY MD
[2016-10-16 08:15] VITALS: BP 151/47
[2016-10-16 09:35] VITALS: BP 164/59
[2016-10-16 09:50] VITALS: BP 163/59
[2016-10-16 10:04] VITALS: BP 158/53
== END | disposition home or self-care (01) ==
LOC: SDC 10-08 11:00
PROVIDERS: Surgery
DX: D64.9 Anemia, unspecified (principal); I10 Essential (primary) hypertension; Z79.4 Long term (current) use of insulin; E11.40 Type 2 diabetes mellitus with diabetic neuropathy, unspecified; Z86.73 Personal history of transient ischemic attack (TIA), and cerebral infarction without residual deficits; F41.9 Anxiety disorder, unspecified; I25.2 Old myocardial infarction; E03.9 Hypothyroidism, unspecified; Z79.82 Long term (current) use of aspirin; Z79.899 Other long term (current) drug therapy; Z90.49 Acquired absence of other specified parts of digestive tract; Z90.710 Acquired absence of both cervix and uterus; Z98.890 Other specified postprocedural states; Z80.3 Family history of malignant neoplasm of breast; Z80.8 Family history of malignant neoplasm of other organs or systems; Z80.1 Family history of malignant neoplasm of trachea, bronchus and lung; J44.9 Chronic obstructive pulmonary disease, unspecified

== ENCOUNTER → 2016-10-22 | Outpatient (CLI) | payer OTHER, MEDICAID | END | disposition home or self-care (01) | LOC: RAD 01:29 | DX: K57.30 Diverticulosis of large intestine without perforation or abscess without bleeding (principal); D64.9 Anemia, unspecified; C95.90 Leukemia, unspecified not having achieved remission ==

== ENCOUNTER 2016-11-05 11:03 | Inpatient (IN) | payer OTHER, MEDICAID ==
[~2016-11-05] VITALS: Ht 160 cm; Wt 67.2 kg
[2016-11-05] VITALS (9 sets, daily range): BP systolic 106–160; BP diastolic 32–57
--- NOTE | ~2016-11-05 | PR ---
[place], [place] PROGRESS NOTE NAME: [id number] UNIT #: [id number] ROOM: 531 DOCTOR: HONORIO BEE MD BIRTHDATE: [birth year] DOS: 11/09/2016 SUBJECTIVE: She feels reasonably well. While in bed, she has no breathing difficulty, palpitations, dizziness. She has walked to the bathroom without any problem, but has not walked in the hallways. She had not had any palpitations. Her appetite is fine and has had no palpitations. She had received blood transfusion for chronic anemia that had gotten worse. OBJECTIVE: GENERAL: She is alert and looks pale. VITAL SIGNS: Pulse is 76 and regular, blood pressure 140/42, normal JVP. LUNGS: Bibasilar crackles. EXTREMITIES: No edema in the lower extremities. NECK: JVP is normal. CARDIOVASCULAR: Cardiac auscultation is unremarkable. LABORATORY DATA: Hemoglobin is 7.1 g/dL, which has ____ after blood transfusion was given. IMPRESSION: The patient's shortness of breath is most likely due to significant anemia and I do not suspect any cardiac decompensation or cardiac reason for her shortness of breath. HONORIO BEE MD CM:PNTRANS 0715 1125 HONORIO BEE MD 11/10/16 0431 interface
--- NOTE | ~2016-11-05 | CON ---
[place], [place] REPORT OF CONSULTATION NAME[facility]ATA [id number] UNIT #: [id number] ROOM: 531 DOCTOR: HONORIO BEE MD BIRTHDATE: [birth year] DOS: 11/07/2016 HISTORY OF PRESENT ILLNESS: This is a 76-year-old -[place] woman with a history of essential hypertension of almost 40-year duration, hyperlipidemia. She had a diagnostic heart catheterization in [facility] over 10 years ago and the coronaries were normal. She has diabetes of long duration as well. She has chronic kidney disease stage 3, GERD, had TIA maybe 20 plus years ago, she was in the [place] at that time, hypothyroidism. She has chronic anemia and has myelodysplastic syndrome that is being attended to by Dr. Wetzel. She has never smoked cigarettes and never used alcoholic beverages. She has chronic exertional shortness of breath and even Thursday, activities in the house cause shortness of breath. In the last few days, she has had some anterior chest discomfort, some retrosternal burning feeling as well and has been on and off. It is not particularly precipitated by activity and it was the reason why she came to the Emergency Department. She also had been feeling somewhat dizzy and lightheaded. She has had no PND, orthopnea or swelling of the lower extremities. No fever or chills. HOME MEDICATIONS: Included acetaminophen, aspirin 81 mg, atorvastatin 40 daily, clopidogrel 75 mg daily, isosorbide mononitrate 30 mg daily, levothyroxine 100 mcg daily, Tradjenta 5 mg daily, metoprolol 25 b.i.d., midodrine 5 mg b.i.d., Protonix 40 daily and Evista 60 mg at bedtime and 42 units of insulin at night. PHYSICAL EXAMINATION: GENERAL: The patient who is alert and oriented. She is restless, looks pale, in no thyromegaly or finger clubbing. She is tachypneic. Percussion note is normal. RESPIRATORY: Auscultation is excellent breath sounds without any adventitious sound. : Pulse is regular at 88 beats per minute, blood pressure 140/50. It has been around 150 for the most part. NECK: JVP is normal. No obvious carotid bruits present. HEART: There is no cardiomegaly and I could not appreciate any systolic murmurs and the pedal pulses are palpable. No edema in the lower extremities. ABDOMEN: Liver is not enlarged. Spleen is not palpable. Bowel sounds are normal. LABORATORY DATA: Hemoglobin 6.7 g/dL on admission and now 7.8 grams after 1 unit of packed RBCs. BUN 28, creatinine 1.7. Troponin I levels are normal. IMPRESSION: This patient has no obvious coronary artery disease from what I can gather. Her ECG shows normal sinus rhythm with left bundle-branch block. As her symptoms do not suggest underlying coronary artery disease, a Lexiscan Cardiolite study was done today and it demonstrated no ischemia. The patient's pain is noncardiac and does not need any further workup. The patient has chronic tachypnea. I think moderate to severe anemia is [place], [place] REPORT OF CONSULTATION NAME: MARIA DEL CARMEN PLATA UNIT #: [id number] ROOM: 531 DOCTOR: HONORIO BEE MD BIRTHDATE: [birth year] probably responsible for the most part. I thank you on behalf of Dr. Anne for this consult. HONORIO BEE MD CM:CONSTR:REPORT OF CONSULTATION 1524 11/08/16 0002 interface SWATHI ANNE MD
--- NOTE | ~2016-11-05 | PR ---
[place], [place] PROGRESS NOTE NAME: MARIA DEL CARMEN [facility] #: [id number] UNIT #: [id number] ROOM: 531 DOCTOR: DEEPALI LINDA MD BIRTHDATE: [birth year] DOS: 11/12/2016 SUBJECTIVE: The patient is doing better. She got a total of 2 units of packed RBCs. Her hemoglobin has improved. She is alert, oriented and responsive. REVIEW OF SYSTEMS HEENT: No trouble swallowing. No double vision. No loss of vision. No pain. ENT AND RESPIRATORY: No wheeze. No change in voice. No cough. No shortness of breath. No coughing up blood. No epistaxis. CARDIOLOGIC: No chest pain. No dizziness. No irregular heartbeat. No leg edema. No palpitations. No shortness of breath. HEMATOLOGIC AND LYMPH: No past transfusion. No fatigue. No loss of appetite. No easy bruising. GASTROENEROLOGIC: No change in bowel habits. No vomiting blood. No abdominal cramping. No nausea. No vomiting. No diarrhea. No constipation. No blood in stool. FEMALE REPRODUCTIVE: No dyspareunia. No pelvic pain. MUSCULOSKELETAL: No back pain. No muscle pain or weakness. No tingling/numbness. UROLOGIC: No pain with urination. No difficulty urinating. No frequent urination. NEUROLOGIC: No burning pain in feet. No trouble with coordination. No loss of consciousness. No headache. No tingling/numbness. No memory loss. PHYSICAL EXAMINATION GENERAL: She is a pleasant woman in no apparent distress. VITAL SIGNS: Stable. She is afebrile. HEENT: Normocephalic, atraumatic NECK AND THYROID: Supple. No JVD, thyromegaly, or lymphadenopathy. HEART: Normal S1, S2. Regular rate and rhythm. LUNGS: Clear to auscultation and percussion. ABDOMEN: Soft. Nontender, nondistended. Bowel sounds present. EXTREMITIES: Normal ROM. No clubbing. No edema. LABORATORY DATA: White count of 4.2, hemoglobin of 9.9, hematocrit 29.2, platelet count 225,000, ANC of 1400. Chemistries from October 03, EGFR of 31, TIBC of 271, iron of 114, saturation 45. RADIOLOGY: Liver-spleen scan showed mild colloid shift. The spleen appears normal in size. There is mild colloid shift characterized by increased activity within the skeleton. ASSESSMENT: 1. A -5q myelodysplastic syndrome. 2. 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 3. Chronic kidney disease stage 3. PLAN: Liver-spleen scan is negative, status post 2 units of packed RBC. I have discussed with Dr. Díaz. Patient can go home from hematologic point of view and we will follow her as an outpatient. I have also discussed with the patient [place], [place] PROGRESS NOTE [id number] UNIT #: [id number] ROOM: 531 DOCTOR: DEEPALI LINDA MD BIRTHDATE: [birth year] in detail. I advised if she starts bleeding, bruising, or any petechia or anything different to call us right away. Ample time was given to the patient to ask me questions. DEEPALI LINDA MD CM:PNTRANS [id number] DEEPALI LINDA MD 11/13/16 0521 interface
--- NOTE | ~2016-11-05 | ST ---
[place], [place] EXERCISE STRESS TEST REPORT NAME: [facility] #: [id number] UNIT #: [id number] ROOM: 531 DOCTOR: MICHELA TRAN MD BIRTHDATE: [birth year] DOS: INDICATION: Chest pain. PROCEDURE: The patient was brought into the stress lab. The procedure was explained with risks, benefits, and alternatives. Lexiscan was injected. The patient tolerated the injection well. Following the procedure, there was no evidence of any significant ST or T-wave changes suggestive of myocardial ischemia. ELECTROCARDIOGRAM INTERPRETATION: Resting electrocardiogram showing normal sinus rhythm. Criteria for right bundle branch block. Occasional PACs. BLOOD PRESSURE RESPONSE: Resting blood pressure 120/60 with ending blood pressure 110/42. SUMMARY: 1. Adequate Lexiscan stress test. 2. Negative Lexiscan stress test for stress-induced myocardial ischemia. 3. No arrhythmias were noted. 4. Myoview results will be reported separately. MICHELA TRAN MD CM:STRESS:EXERCISE STRESS TEST REPORT [id number] MICHELA TRAN MD
--- NOTE | ~2016-11-05 | PR ---
[place], [place] PROGRESS NOTE [id number] UNIT #: [id number] ROOM: 531 DOCTOR: DEEPALI LINDA MD BIRTHDATE: [birth year] DOS: 11/11/2016 SUBJECTIVE: The patient is doing better. Her hemoglobin had dropped to around 6 and is going to get transfusion. She is awake, alert and responsive. PHYSICAL EXAMINATION: GENERAL: Pleasant woman in no apparent distress. VITAL SIGNS: Stable. She is afebrile. HEENT: Normocephalic, atraumatic. NECK AND THYROID: Supple. No JVD, thyromegaly, or lymphadenopathy. HEART: Normal S1, S2. Regular rate and rhythm. LUNGS: Clear to auscultation and percussion. ABDOMEN: Soft. Nontender, nondistended. Bowel sounds present. EXTREMITIES: Normal ROM. No clubbing. No edema. LABORATORY DATA: White count of 3.2, hemoglobin 6.6, hematocrit 20.0, platelet count 24,000. Peripheral smear shows monocytes. Chemistry: EGFR of 31. Sodium 135, potassium 4.2, chloride 104, bicarbonate 22. ASSESSMENT: 1. ____ MDS. 2. Pancytopenia secondary to MBS. 3. Chest pain, rule out myocardial infarction. 4. Gastroesophageal reflux disease. 5. Chronic kidney disease. PLAN: The patient should be getting a unit of packed RBC. In addition, a liver/spleen scan was done. ____ liver/spleen scan depending on the further intervention. In the meantime, platelet transfusion on p.r.n. basis. If her platelets drops then transfusion. She will be needing treatment for her MDS. I had a detailed ____. Ample time was given to the patient to ask any questions. Before that she will be getting a unit of blood. DEEPALI LINDA MD CM:PNTRANS [phone] DEEPALI LINDA MD 11/11/16 0910 interface
--- NOTE | ~2016-11-05 | CON ---
[place], [place] REPORT OF CONSULTATION NAME: MARIA DEL [facility]MEN [facility] #: [id number] UNIT #: [id number] ROOM: 531 DOCTOR: DEEPALI LINDA MD BIRTHDATE: [birth year] DOS: 11/06/2016 HISTORY OF PRESENT ILLNESS: The patient is a pleasant 76-year-old [place] woman with a history of -5q MDS with multiple packed RBC transfusion. He started complaining of chest pain, weakness, shortness of breath on exertion. This chest pain initially started a few days ago anterior chest pain was radiating to left neck originated from midsternum. She was noted to have a hemoglobin of 6.7 and consulted for further evaluation and management. PAST MEDICAL HISTORY: Significant for -5q MDS, history of TIA in the past, coronary artery disease, cerebrovascular accident, depression, GERD, history of myocardial infarction, hypertension, hyperlipidemia, hypothyroidism, neuropathy, right bundle-branch block, retinopathy, stage 3 chronic kidney disease, left internal carotid artery, type 2 diabetes mellitus, vitamin deficiency. PAST SURGICAL HISTORY: Appendectomy, cataract surgery, hysterectomy, status post coronary stent placement. SOCIAL HISTORY: No smoking, drinking, or drug abuse. FAMILY HISTORY: Father in a mill accident at age 22. Mother had gynae cancer, hypertension, diabetes, at age 62. Brother had coronary artery disease, diabetes at age 52. Brother with esophageal cancer at age 40-50. Brother with brain and lung cancer, at age of 58, sister had diabetes, and kidney failure. ALLERGIES: No allergies. MEDICATIONS: Acetaminophen, aspirin, atorvastatin, vitamin D, ciprofloxacin, hydrocodone, isosorbide, levothyroxine, Tradjenta, metoprolol succinate, nitroglycerin, Protonix, Restoril, Zoloft. REVIEW OF SYSTEMS: CONSTITUTIONAL: No chills. No fatigue. No fever. No loss of appetite. No night sweats. No weakness. No weight loss. HEENT: No trouble swallowing. No loss of smell. No loss of hearing. No double vision. No pain. No discharge. ENT AND RESPIRATORY: No wheeze. No sore throat. No change in voice. No hearing loss. No nose bleed. No cough. No trouble breathing through nose. No shortness of breath. No coughing up blood. No epistaxis. CARDIOVASCULAR: No chest pain. No dizziness. No irregular heartbeat. No leg edema. No pain in legs while walking. No palpitations. No shortness of breath. DERMATOLOGIC: No acne. No hives. No laceration. No mole. No rash. ENDOCRINE: No cold intolerance. No diabetes. No fatigue. No hot flashes. No polydipsia. No polyuria. No urinating frequently. No weight loss. HEMATOLOGIC AND LYMPH: No fatigue. No easy bruising. GASTROENTEROLOGIC: No change in bowel habits. No indigestion. No frequent bloating. No vomiting blood. No abdominal cramping. No nausea. No heartburn. No vomiting. No abdominal pain. No dysphagia. No diarrhea. No constipation. [place], [place] REPORT OF CONSULTATION NAME: MARIA DEL CARMEN [facility] #: [id number] UNIT #: [id number] ROOM: 531 DOCTOR: DEEPALI LINDA MD BIRTHDATE: [birth year] No blood in stool. FEMALE REPRODUCTIVE: No vaginal itching. No difficulty urinating. No heavy periods. No dyspareunia. No sexually active. No dysmenorrhea. No pelvic pain. No breast pain. No nipple discharge. No abnormal vaginal discharge. No hot flashes. MUSCULOSKELETAL: No back pain. No muscle pain or weakness. No neck pain. No tingling/numbness. No swelling/bruising. No osteoporosis treatment. OPHTHALMOLOGIC: No double vision. No diminished vision. No loss of vision. UROLOGIC: No dysuria. No frequent nighttime urination. No irregular periods. No pain with urination. No difficulty urinating. No blood in urine. No frequent urination. No urinary incontinence. NEUROLOGIC: No loss of sensation in specific body area. No vertigo. No burning pain in feet. No trouble with balance. No trouble with coordination. No loss of consciousness. No loss of feeling/power. No confusion. No headache. No tingling/numbness. PSYCHOLOGIC: No tinnitus. No headaches. No shortness of breath. No weight decrease. No nausea. No vomiting. No abdominal discomfort. No constipation. No diarrhea. No depression. No anxiety. PHYSICAL EXAMINATION: GENERAL: Pleasant woman in no apparent distress, feeling weak and tired. VITAL SIGNS: Stable. She is afebrile. Blood pressure 134/52, respirations 16, pulse is 60, temperature 100.0. HEENT: Oral mucosa appears intact. The external ears are normal in appearance. Nares are patent without lesions, exudates, erythema, or inflammation. Tongue is symmetrical. Uvula is midline. NECK AND THYROID: Neck supple without palpable masses. Trachea is midline. No thyromegaly. No carotid bruit or JVD. BREASTS: Normal. Nipples unremarkable. No drainage. No lumps felt on either side. HEART: Normal S1, S2, without significant murmur, rub, or gallop. LUNGS: Clear to auscultation and percussion with good air entry bilaterally. The patient is breathing easily without the use of accessory muscles. Diaphragmatic excursions are intact. ABDOMEN: No costovertebral angle tenderness. Soft. No organomegaly or masses. Nontender. No hernias present. Liver and spleen are not palpable. LYMPHATIC: No adenopathy noted in the cervical, supraclavicular, axillary, or inguinal regions. NEUROLOGIC: Nonfocal. Oriented to person, place, and time. MENTAL STATUS: Appropriate for mood and affect. PERIPHERAL PULSES: No varicosities. Femoral and pedal pulses are palpable. EXTREMITIES: Without cyanosis, clubbing, or edema. No gross anomalies. LABORATORY DATA: White count 3.7, hemoglobin 8.3, hematocrit 24.8, platelet count of 33,000. ASSESSMENT: 1. -5q myelodysplastic syndromes. 2. Pancytopenia secondary to #1. 3. Status post multiple units of packed RBC in the past. [place], [place] REPORT OF CONSULTATION NAME: MARIA DEL CARMEN [facility] UNIT #: [id number] ROOM: 531 DOCTOR: DEEPALI LINDA MD BIRTHDATE: [birth year] 4. Gastroesophageal reflux disease. 5. Chronic kidney disease. PLAN: The patient is a candidate for chemotherapy. She will be evaluating her situation after she gets okayed by Cardiology. In the meantime, we will also get a liver, spleen scan if not done depending no further intervention and discuss and follow. Transfusion on p.r.n. basis. Thanks for consulting and letting me participate in the care of this interesting patient. DEEPALI LINDA MD CM:CONSTR:REPORT OF CONSULTATION 1635 11/07/16 0328 interface
--- NOTE | ~2016-11-05 | PR ---
[place], [place] PROGRESS NOTE NAME: MARIA DEL [facility]MEN [facility] #: [id number] UNIT #: [id number] ROOM: 531 DOCTOR: DEEPALI LINDA MD BIRTHDATE: [birth year] DOS: 11/07/2016 SUBJECTIVE: The patient is doing better. She is awake and alert. PHYSICAL EXAMINATION: GENERAL: She is a pleasant woman, in no apparent distress. VITAL SIGNS: Stable. She is afebrile. HEENT: Normocephalic, atraumatic NECK AND THYROID: Supple. No JVD, thyromegaly, or lymphadenopathy. HEART: Normal S1, S2. Regular rate and rhythm. LUNGS: Clear to auscultation and percussion. ABDOMEN: Soft. Nontender, nondistended. Bowel sounds present. EXTREMITIES: Normal ROM. No clubbing. No edema. LABORATORY DATA: White count of 4.2, hemoglobin 7.8, hematocrit 23.5, platelet count 30,000. Peripheral smear did not show myelocytes and metamyelocytes. ASSESSMENT: 1. 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 2. Macrocytosis. 3. Chest pain, rule out myocardial infarction. PLAN: We will wait until the Cardiology workup is completed, she will be needing treatment as an outpatient, transfusion on p.r.n. basis and discussed. DEEPALI LINDA MD CM:PNTRANS [phone] DEEPALI LINDA MD 11/07/16 1506 interface
--- NOTE | ~2016-11-05 | PR ---
[place], [place] PROGRESS NOTE NAME: MARIA DEL CARMEN [facility]ATA [facility] #: [id number] UNIT #: [id number] ROOM: 531 DOCTOR: DEEPALI LINDA MD BIRTHDATE: [birth year] DOS: 11/10/2016 SUBJECTIVE: The patient is doing better. She says she is feeling much better. She is awake, alert and responsive. REVIEW OF SYSTEMS: HEENT: No trouble swallowing. No double vision. No loss of vision. No pain. ENT AND RESPIRATORY: No wheeze. No change in voice. No cough. No shortness of breath. No coughing up blood. No epistaxis. CARDIOLOGIC: No chest pain. No dizziness. No irregular heartbeat. No leg edema. No palpitations. No shortness of breath. HEMATOLOGIC AND LYMPH: No past transfusion. No fatigue. No loss of appetite. No easy bruising. GASTROENEROLOGIC: No change in bowel habits. No vomiting blood. No abdominal cramping. No nausea. No vomiting. No diarrhea. No constipation. No blood in stool. FEMALE REPRODUCTIVE: No dyspareunia. No pelvic pain. MUSCULOSKELETAL: No back pain. No muscle pain or weakness. No tingling/numbness. UROLOGIC: No pain with urination. No difficulty urinating. No frequent urination. NEUROLOGIC: No burning pain in feet. No trouble with coordination. No loss of consciousness. No headache. No tingling/numbness. No memory loss. PHYSICAL EXAMINATION: GENERAL: She is in no apparent distress. VITAL SIGNS: Stable. She is afebrile. HEENT: Normocephalic, atraumatic NECK AND THYROID: Supple. No JVD, thyromegaly, or lymphadenopathy. HEART: Normal S1, S2. Regular rate and rhythm. LUNGS: Clear to auscultation and percussion. ABDOMEN: Soft. Nontender, nondistended. Bowel sounds present. EXTREMITIES: Normal ROM. No clubbing. No edema. ASSESSMENT: 1. -5q. myelodysplastic syndrome. 2. 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 3. Gastroesophageal reflux disease. 4. Coronary artery disease. PLAN: Overall, the patient to go for nuclear liver and spleen scan today. Advised that we will be getting her CBC today depending on the further intervention. Transfusion on p.r.n. basis. I had a detailed discussion and the patient ____ seemed to understand. Ample time was given to the patient to ask me questions. We will follow. From 11/08/2016, white count of 4.2, hemoglobin 7.1, hematocrit of 21.6, platelet count of 211. [place], [place] PROGRESS NOTE NAME: MARIA DEL CARMEN [facility] UNIT #: [id number] ROOM: 531 DOCTOR: DEEPALI LINDA MD BIRTHDATE: [birth year] DEEPALI LINDA MD CM:PNTRANS [id number] 5 DEEPALI LINDA MD 11/11/16 0255 interface
[2016-11-05 11:35] LABS: HEMATOCRIT 20.4 % (37.0-47.0); HEMOGLOBIN 6.7 g/dl (12.0-16.0); MEAN CELL VOLUME 99.5 fl (81.0-99.0); MEAN CORPUSCULAR HGB 32.7 pg (27.0-31.0); MEAN CORPUSCULAR HGB CONC 32.8 g/dl (33.0-37.0); RED BLOOD COUNT 2.05 10*6/uL (4.10-5.10); RED CELL DISTRI WIDTH 17.6 % (0-14.5)
[2016-11-05 11:37] LABS: MEAN PLATELET VOLUME 13.2 fl (9.6-12.3); PLATELET COUNT AUTOMATED 37 10*3/uL (130-400); WHITE BLOOD COUNT 3.3 10*3/uL (4.8-10.8)
[2016-11-05 11:44] LABS: ACT PARTIAL THROMBO TIME 22.3 SECONDS (20.8-31.5); INTERNATIONAL NORM RATIO 1.1 (2.0-3.5)
[2016-11-05] MEDS ORDERED: CIPROFLOXACIN500 M4 PO (11:48)
--- NOTE | 2016-11-05 11:50 | NUR ---
O2 2L APPLIED FOR C/O MILD SOB---RADHA GUZMAN RN
[2016-11-05 11:52] LABS: ALBUMIN 3.1 gm/dl (3.1-4.5); ALKALINE PHOSPHATASE 63 U/L (45-117); BUN 28 mg/dl (7-24); CHLORIDE 110 mmol/L (98-107); CREATININE 1.71 mg/dL (0.55-1.02); LIPASE 124 U/L (73-393); MAGNESIUM 1.8 mg/dL (1.5-2.1); POTASSIUM 4.4 mmol/L (3.5-5.1); SGOT/AST 15 IU/L (3-35); SGPT/ALT 13 U/L (12-78); SODIUM 140 mmol/L (136-145)
[2016-11-05 11:55] LABS: TROPONIN I < 0.015 ng/ml (<0.045)
[2016-11-05 11:56] LABS: BASOPHILS 1 % (0-1); PLATELET SUFFICIENCY LOW (NORMAL); ROULEAUX MODERATE; TOTAL CELLS COUNTED 100 #CELLS
--- NOTE | 2016-11-05 13:48 | NUR ---
BLOOD STARTED.PT TOLERATING WELL.RESIDENT MD IN SPEAKING WITH PT.REPORT CALLED AT THIS TIME.---RADHA GUZMAN RN
--- NOTE | 2016-11-05 15:52 | NUR ---
MEDICATIONS REVIEWED WITH PATIENT AND PHARMACY LIST. MEDICATIONS ARE CORRECT. THE PATIENTS BLOOD SUGARS HAVE BEEN LOW AND HAS NOT NEEDED TO USE THE INSULIN MEDICATIONS.
--- NOTE | 2016-11-05 16:30 | NUR ---
PATIENT RECEIVED ONE UNIT OF BLOOD WITH NO SIDE EFECTS PATIENT RESTING IN BED WITH FAMILY IN ROOM RESP ERNL
[2016-11-05 17:28] LABS: HEMATOCRIT 24.2 % (37.0-47.0); HEMOGLOBIN 8.2 g/dl (12.0-16.0)
--- NOTE | 2016-11-05 20:16 | NUR ---
PATIENT CALLED NURSE QASIM TO ROOM SHE HELD HER ARMS OUT SHE HAS SMALL PETECHIAE ACROSS BOTH OF HER ARMS SHE IS ASYMPTOMATIC AT THIS TIME. DR MENSAH NOTIFED WILL BE DOWN TO SEE PATIENT
[2016-11-06] VITALS: BP 143/53; BP 155/60
[2016-11-06 06:31] LABS: HEMATOCRIT 24.8 % (37.0-47.0); HEMOGLOBIN 8.3 g/dl (12.0-16.0); MEAN CORPUSCULAR HGB 31.9 pg (27.0-31.0); MEAN CORPUSCULAR HGB CONC 33.5 g/dl (33.0-37.0); PLATELET COUNT AUTOMATED 33 10*3/uL (130-400); RED CELL DISTRI WIDTH 17.2 % (0-14.5); WHITE BLOOD COUNT 3.7 10*3/uL (4.8-10.8)
[2016-11-06 06:33] LABS: MEAN CELL VOLUME 95.4 fl (81.0-99.0)
[2016-11-06 07:03] LABS: CREATININE 1.41 mg/dL (0.55-1.02); PHOSPHOROUS 3.3 mg/dL (2.5-4.9); POTASSIUM 4.9 mmol/L (3.5-5.1)
[2016-11-06 07:04] LABS: BASOPHILS 1 % (0-1); PLATELET SUFFICIENCY LOW (NORMAL); POLYCHROMASIA SLIGHT; TOTAL CELLS COUNTED 100 #CELLS
[2016-11-06 07:11] LABS: FREE T4 1.25 ng/dl (0.76-1.46); THYROID STIM HORMONE (HS) 0.381 uIU/ml (0.358-4.75)
[2016-11-06 07:49] LABS: VITAMIN D, 25-HYDROXY 41.4 ng/mL (30-100)
[2016-11-06 08:00] VITALS: BP 134/52
--- NOTE | 2016-11-06 08:00 | NUR ---
PT RESTING IN BED, NO DISTRESS NOTED. WILL MONITOR. FAMILY AT BEDSIDE
--- NOTE | 2016-11-06 09:00 | NUR ---
Strategic Planning Director in to talk to patient. Patient states lives at home with daughter. There are few steps in the home. Physician: nadja powers [facility]acy: [facility] Home health services: none Patient's level of ADLs: INDEPENDENT Patient has working utilities: all working DME: cane and walker Follow-up physician's appointment after d/c: will be made by hospitalist nurse director upon discharge Does patient want to access PORTAL?: no Discharge plan discussed with patient, patient lives at home with daughter, she states she uses her cane or walker when ambulating, she is independent in adls , patient states she will be going home when able. discussed with her vna and she refused any services at this time, case management will follow for any needs. NARENDRA FOFANA
[2016-11-06 12:00] VITALS: BP 149/51
[2016-11-06 16:00] VITALS: BP 108/90
--- NOTE | 2016-11-06 16:24 | NUR ---
DR LINDA HERE TO SEE PT
--- NOTE | 2016-11-06 19:03 | NUR ---
ATTEMPTED TO CALL DR BEE (COVERING FOR DR ANNE) X2. TO SEE IF ASA CAN BE DC;D. ANSWRING SERVICE SAID WILL ADD TO LIST FOR HIM TO CALL BACK
[2016-11-06 20:00] VITALS: BP 158/58
--- NOTE | 2016-11-06 21:04 | NUR ---
ZOFRAN EFFECTIVE FOR NAUSEA. TYLENOL GIVEN FOR LOW GRADE TEMP. AND HEADACHE.
[2016-11-07] VITALS: BP 135/58
--- NOTE | 2016-11-07 00:03 | NUR ---
called and said to have the stress test done first then reschedule Liver scan.
[2016-11-07 07:41] LABS: HEMATOCRIT 23.5 % (37.0-47.0); HEMOGLOBIN 7.8 g/dl (12.0-16.0); MEAN CELL VOLUME 95.9 fl (81.0-99.0); MEAN CORPUSCULAR HGB 31.8 pg (27.0-31.0); MEAN CORPUSCULAR HGB CONC 33.2 g/dl (33.0-37.0); PLATELET COUNT AUTOMATED 30 10*3/uL (130-400); RED BLOOD COUNT 2.45 10*6/uL (4.10-5.10); RED CELL DISTRI WIDTH 16.9 % (0-14.5); WHITE BLOOD COUNT 4.2 10*3/uL (4.8-10.8)
[2016-11-07 07:55] LABS: CREATININE 1.41 mg/dL (0.55-1.02); MAGNESIUM 1.6 mg/dL (1.5-2.1); POTASSIUM 4.4 mmol/L (3.5-5.1)
[2016-11-07 08:00] VITALS: BP 140/50
[2016-11-07 08:12] LABS: BASOPHILS 3 % (0-1); POLYCHROMASIA SLIGHT; TOTAL CELLS COUNTED 100 #CELLS
[2016-11-07 08:13] LABS: PLATELET SUFFICIENCY LOW (NORMAL)
--- NOTE | 2016-11-07 08:23 | NUR ---
CALLED DR. SALES AND NOTIFIED HIM OF 100.4 TEMP AT THIS TIME AND THAT PT. IS NPO FOR STRESS TEST AND DID HE WANT TYLENOL GIVEN AT THIS TIME. DR. SALES SAID YES TO GIVE TYLENOL .
--- NOTE | 2016-11-07 08:29 | NUR ---
tylenol given per order for temp.
--- NOTE | 2016-11-07 08:51 | NUR ---
urine obtained and sent to lab for UA and culture.
--- NOTE | 2016-11-07 08:55 | NUR ---
spoke with Dr. Wetzel about NM liver scan and he said it was "okay to do thursday."
--- NOTE | 2016-11-07 09:00 | NUR ---
case management visits with patient, patient denies any home needs
[2016-11-07 09:12] LABS: BILIRUBIN NEGATIVE (NEGATIVE); BLOOD 2+ (NEGATIVE); CLARITY CLEAR (CLEAR); COLOR YELLOW (YELLOW); GLUCOSE NEGATIVE (NEGATIVE); KETONE NEGATIVE (NEGATIVE); LEUKO ESTERASE NEGATIVE (NEGATIVE); NITRITE NEGATIVE (NEGATIVE); PH 5.5 (5.0-9.0); SPECIFIC GRAVITY 1.015 (1.005-1.030); UROBILINOGEN 0.2 E.U./dl (0.2-1.0)
[2016-11-07 09:43] LABS: BACTERIA 2+; WBC 21-30 wbc/hpf (0-5)
--- NOTE | 2016-11-07 10:47 | NUR ---
INFORMED CONSENT SIGNED FOR LEXISCAN STRESS TEST WITH DR. TRAN. RESTING NSR WITH COUPLET PAC'S. HR 67, BP 120/60. PULSE OX 97% AND LUNGS CLEAR. COMPLETED ONE MINUTE OF LEXISCAN PROTOCOL RECEIVING LEXISCAN 0.4MG OVER 10 SECONDS. PT C/O SOB, NECK HEAVINESS, AND HEACHACHE. LAST RECOVERY HR 82, BP 110/42. WAITING NUCLEAR SCANNING IN STABLE CONDITION.
[2016-11-07 12:00] VITALS: BP 97/66
[2016-11-07 16:00] VITALS: BP 154/43
[2016-11-07 20:00] VITALS: BP 115/52
--- NOTE | 2016-11-07 20:00 | NUR ---
ASSUMED CARE OF PATIENT. ASSESSMENT COMPLETE. RESTING IN BED. NO VOICED COMPLAINTS. CALL LIGHT IN REACH. WILL CONTINUE TO MONITOR.
--- NOTE | 2016-11-07 21:09 | NUR ---
MEDICATED WITH PRN NORCO FOR C/O CHEST PAIN. CURRENTLY RATES 4/10. STATES PAIN INCREASES WHEN AMBULATING.
--- NOTE | 2016-11-07 23:13 | NUR ---
MEDICATED WITH PRN TYLENOL FOR TEMP. AT THIS TIME, PT ALSO STATES EARLIER NORCO WAS EFFECTIVE
[2016-11-08] VITALS: BP 104/85
[2016-11-08 04:00] VITALS: BP 100/85
[2016-11-08 06:18] LABS: HEMATOCRIT 21.6 % (37.0-47.0); HEMOGLOBIN 7.1 g/dl (12.0-16.0); MEAN CELL VOLUME 95.6 fl (81.0-99.0); MEAN CORPUSCULAR HGB 31.4 pg (27.0-31.0); MEAN CORPUSCULAR HGB CONC 32.9 g/dl (33.0-37.0); RED BLOOD COUNT 2.26 10*6/uL (4.10-5.10); WHITE BLOOD COUNT 4.2 10*3/uL (4.8-10.8)
[2016-11-08 06:24] LABS: PLATELET COUNT AUTOMATED 24 10*3/uL (130-400)
--- NOTE | 2016-11-08 06:35 | NUR ---
CALLED DR KOHLER NOTIFIED HIM OF PATIENTS PLATELETS 24,000. NO ORDERS RECEIVED
[2016-11-08 06:43] LABS: CREATININE 1.52 mg/dL (0.55-1.02); POTASSIUM 4.2 mmol/L (3.5-5.1)
[2016-11-08 07:01] LABS: OVALOCYTES FEW; PLATELET SUFFICIENCY LOW (NORMAL); TOTAL CELLS COUNTED 100 #CELLS
[2016-11-08 08:00] VITALS: BP 128/58
--- NOTE | 2016-11-08 08:07 | NUR ---
Shift chart check completed.
--- NOTE | 2016-11-08 10:51 | NUR ---
AM MEDICATIONS GIVEN, PT WITHOUT QUESTIONS. STATE FEELING VERY TIRED. WILL MONITOR FOR NEEDS, NO NEEDS STATED AT THIS TIME
[2016-11-08 12:00] VITALS: BP 140/59
[2016-11-08 16:00] VITALS: BP 155/52
--- NOTE | 2016-11-08 16:41 | NUR ---
PT COMPLAINS OF PAIN 04/25. NORCO GIVEN. SEE MAR. WILL MONITOR FOR EFFECTIVENESS
--- NOTE | 2016-11-08 17:45 | NUR ---
NORCO EFFECTIVE FOR PAIN
[2016-11-08 20:00] VITALS: BP 124/42
--- NOTE | 2016-11-08 21:15 | NUR ---
PATIENT IS RESTING QUIETLY IN BED. DENIES ANY CP AT THIS TIME. NO VOICED COMPLAINTS. CALL LIGHT IS IN REACH. WILL MONITOR.
[2016-11-09] VITALS: BP 140/42
--- NOTE | 2016-11-09 05:17 | NUR ---
PATIENT SLEEPING. NO SXS OF DISTRESS AT THIS TIME. RESPIRATIONS EASY/REGULAR. CALL LIGHT IS IN REACH.
--- NOTE | 2016-11-09 06:25 | NUR ---
SLEPT THROUGHOUT SHIFT WITH NO VOICED COMPLAINTS. RESPIRATIONS EASY/REG. CALL LIGHT IN REACH
[2016-11-09 08:00] VITALS: BP 148/50
[2016-11-09 12:00] VITALS: BP 135/92
[2016-11-09 16:00] VITALS: BP 163/53
[2016-11-09 20:00] VITALS: BP 145/77
[2016-11-10] VITALS: BP 140/72; BP 148/50
[2016-11-10 04:00] VITALS: BP 135/55
[2016-11-10 08:00] VITALS: BP 142/50
[2016-11-10 12:00] VITALS: BP 131/53
[2016-11-10 15:17] LABS: BASO % 0.3 % (0.0-1.0); EOS # 0.1 10*3/uL (0.0-0.4); EOS % 1.7 % (1.0-4.0); HEMATOCRIT 19.7 % (37.0-47.0); HEMOGLOBIN 6.6 g/dl (12.0-16.0); LYMPH # 1.1 10*3/uL (1.3-4.4); LYMPH % 32.4 % (27.0-41.0); MEAN CELL VOLUME 95.2 fl (81.0-99.0); MEAN CORPUSCULAR HGB 31.9 pg (27.0-31.0); MEAN CORPUSCULAR HGB CONC 33.5 g/dl (33.0-37.0); MONO # 1.2 10*3/uL (0.1-1.0); MONO % 35.5 % (3.0-9.0); NEUT % 27.5 % (47.0-73.0); RED BLOOD COUNT 2.07 10*6/uL (4.10-5.10); RED CELL DISTRI WIDTH 17.2 % (0-14.5); WHITE BLOOD COUNT 3.5 10*3/uL (4.8-10.8)
[2016-11-10 15:29] LABS: CREATININE 1.62 mg/dL (0.55-1.02); POTASSIUM 4.2 mmol/L (3.5-5.1)
[2016-11-10 15:58] LABS: TOTAL CELLS COUNTED 100 #CELLS
[2016-11-10 16:00] VITALS: BP 151/41
[2016-11-10 16:00] LABS: POLYCHROMASIA SLIGHT
[2016-11-10 16:01] LABS: PLATELET SUFFICIENCY LOW (NORMAL)
[2016-11-10 16:03] LABS: PLATELET COUNT AUTOMATED 24 10*3/uL (130-400)
--- NOTE | 2016-11-10 16:06 | NUR ---
DR KENNEY CALLED RE: LABS. LABS REVIEWED.
--- NOTE | 2016-11-10 18:11 | NUR ---
Patient resting quietly with no c/o discomfort. Respirations easy and regular. Vital signs stable. No overt distress. MANISHA DANG R
[2016-11-10 20:00] VITALS: BP 145/40; BP 95/52
[2016-11-11] VITALS (16 sets, daily range): BP systolic 109–168; BP diastolic 44–78
[2016-11-11 06:15] LABS: HEMOGLOBIN 6.6 g/dl (12.0-16.0); MEAN CELL VOLUME 96.2 fl (81.0-99.0); MEAN CORPUSCULAR HGB 31.7 pg (27.0-31.0); MEAN PLATELET VOLUME 13.2 fl (9.6-12.3); RED BLOOD COUNT 2.08 10*6/uL (4.10-5.10); RED CELL DISTRI WIDTH 17.2 % (0-14.5); WHITE BLOOD COUNT 3.2 10*3/uL (4.8-10.8)
[2016-11-11 06:43] LABS: PLATELET SUFFICIENCY LOW (NORMAL); POLYCHROMASIA SLIGHT; TOTAL CELLS COUNTED 100 #CELLS
[2016-11-11 06:44] LABS: PLATELET COUNT AUTOMATED 24 10*3/uL (130-400)
--- NOTE | 2016-11-11 08:30 | NUR ---
Patient resting quietly with no c/o discomfort. Respirations easy and regular. Vital signs stable. No overt distress. MANISHA DANG R
--- NOTE | 2016-11-11 11:15 | NUR ---
Informed consent obtained from patient for Blood transfusion Patient identified by arm band. Vital signs recorded. Blood unit number verified by 2 R.N.'s. I.V. site satisfactory. Unit 1 started at a KVO rate with Normal Saline. MANISHA DANG
[2016-11-11 16:04] LABS: HEMATOCRIT 22.5 % (37.0-47.0); HEMOGLOBIN 7.7 g/dl (12.0-16.0)
--- NOTE | 2016-11-11 18:05 | NUR ---
Informed consent obtained from patient for Blood transfusion. Patient identified by arm band. Vital signs recorded. Blood unit number verified by 2 R.N.'s. I.V. site satisfactory. Unit 2 started at a KVO rate with Normal Saline. MANISHA DANG
[2016-11-11 22:53] LABS: HEMATOCRIT 28.3 % (37.0-47.0)
[2016-11-11 22:54] LABS: HEMOGLOBIN 9.9 g/dl (12.0-16.0)
[2016-11-12] VITALS: BP 180/55
[2016-11-12 04:09] VITALS: BP 162/82
[2016-11-12 06:30] LABS: HEMATOCRIT 29.2 % (37.0-47.0); HEMOGLOBIN 9.9 g/dl (12.0-16.0); MEAN CORPUSCULAR HGB CONC 33.9 g/dl (33.0-37.0); RED BLOOD COUNT 3.19 10*6/uL (4.10-5.10); RED CELL DISTRI WIDTH 16.2 % (0-14.5); WHITE BLOOD COUNT 4.2 10*3/uL (4.8-10.8)
[2016-11-12 06:34] LABS: MEAN CELL VOLUME 91.5 fl (81.0-99.0)
[2016-11-12 06:56] LABS: PLATELET SUFFICIENCY LOW (NORMAL); POLYCHROMASIA SLIGHT; TOTAL CELLS COUNTED 100 #CELLS
[2016-11-12 06:58] LABS: PLATELET COUNT AUTOMATED 25 10*3/uL (130-400)
[2016-11-12 08:00] VITALS: BP 170/50
--- NOTE | 2016-11-12 09:00 | NUR ---
case management visits with patient, again discussed with her a discharge plan including a short term [facility] or VNA, patient refused both, stated that she was going back home when able and her daughter would help her
[2016-11-12 12:00] VITALS: BP 123/75
--- NOTE | 2016-11-12 15:55 | NUR ---
PATIENT TO BE DISCHARGED HOME.
--- NOTE | 2016-11-12 17:17 | NUR ---
PATIENT DISCHARGED TO HOME
== END 2016-11-12 17:17 | disposition home or self-care (01) | DRG 811 ==
LOC: ED 11:03 → EDHOLD 12:31 → 5E 12:31
PROVIDERS: Emergency Medicine; Internal Medicine; Internal Medicine Hematology & Oncology; Student in an Organized Health Care Education/Training Program; ADMIT Internal Medicine
PROC: 3E073KZ Introduction of Other Diagnostic Substance into Coronary Artery, Percutaneous Approach (ICD-10-PCS; principal; 2016-11-07)
PROC: 4A02XM4 Measurement of Cardiac Total Activity, External Approach (ICD-10-PCS; principal; 2016-11-07)
PROC: 30233N1 Transfusion of Nonautologous Red Blood Cells into Peripheral Vein, Percutaneous Approach (ICD-10-PCS; 2016-11-11)
DX: D46.C Myelodysplastic syndrome with isolated del(5q) chromosomal abnormality (principal); N17.0 Acute kidney failure with tubular necrosis; J18.9 Pneumonia, unspecified organism; D61.818 Other pancytopenia; E44.0 Moderate protein-calorie malnutrition; R06.09 Other forms of dyspnea; E11.22 Type 2 diabetes mellitus with diabetic chronic kidney disease; E11.40 Type 2 diabetes mellitus with diabetic neuropathy, unspecified; C95.10 Chronic leukemia of unspecified cell type not having achieved remission; I45.2 Bifascicular block; E87.1 Hypo-osmolality and hyponatremia; N18.3 Chronic kidney disease, stage 3 (moderate); K21.9 Gastro-esophageal reflux disease without esophagitis; R07.89 Other chest pain; I12.9 Hypertensive chronic kidney disease with stage 1 through stage 4 chronic kidney disease, or unspecified chronic kidney disease; I49.1 Atrial premature depolarization; F32.9 Major depressive disorder, single episode, unspecified; E11.65 Type 2 diabetes mellitus with hyperglycemia; E11.319 Type 2 diabetes mellitus with unspecified diabetic retinopathy without macular edema; D63.8 Anemia in other chronic diseases classified elsewhere; E03.9 Hypothyroidism, unspecified; E78.5 Hyperlipidemia, unspecified; I25.118 Atherosclerotic heart disease of native coronary artery with other forms of angina pectoris; Z79.4 Long term (current) use of insulin; Z68.26 Body mass index [BMI] 26.0-26.9, adult; Z79.82 Long term (current) use of aspirin; Z79.899 Other long term (current) drug therapy; Z86.73 Personal history of transient ischemic attack (TIA), and cerebral infarction without residual deficits; I25.2 Old myocardial infarction; Z90.710 Acquired absence of both cervix and uterus; Z90.49 Acquired absence of other specified parts of digestive tract; Z98.49 Cataract extraction status, unspecified eye; Z95.5 Presence of coronary angioplasty implant and graft; Z80.8 Family history of malignant neoplasm of other organs or systems; Z80.0 Family history of malignant neoplasm of digestive organs; Z80.1 Family history of malignant neoplasm of trachea, bronchus and lung; Z84.1 Family history of disorders of kidney and ureter; Z83.3 Family history of diabetes mellitus; Z82.49 Family history of ischemic heart disease and other diseases of the circulatory system

== ENCOUNTER 2016-12-24 09:41 | Inpatient (IN) | payer OTHER, MEDICAID ==
[2016-12-24] VITALS (14 sets, daily range): BP systolic 105–176; BP diastolic 49–77
[~2016-12-24] VITALS: Ht 157.5 cm; Wt 67.6 kg
--- NOTE | ~2016-12-24 | PR ---
[place], [place] PROGRESS NOTE NAME: MARIA DEL CARMEN PLATA [facility] #: [id number] UNIT #: [id number] ROOM: 504 DOCTOR: DEEPALI LINDA MD BIRTHDATE: [birth year] DOS: 12/29/2016 SUBJECTIVE: The patient is doing better. She is awake, alert and responsive. REVIEW OF SYSTEMS HEENT: No trouble swallowing. No double vision. No loss of vision. No pain. ENT AND RESPIRATORY: No wheeze. No change in voice. No cough. No shortness of breath. No coughing up blood. No epistaxis. CARDIOLOGIC: No chest pain. No dizziness. No irregular heartbeat. No leg edema. No palpitations. No shortness of breath. HEMATOLOGIC AND LYMPH: No past transfusion. No fatigue. No loss of appetite. No easy bruising. GASTROENEROLOGIC: No change in bowel habits. No vomiting blood. No abdominal cramping. No nausea. No vomiting. No diarrhea. No constipation. No blood in stool. FEMALE REPRODUCTIVE: No dyspareunia. No pelvic pain. MUSCULOSKELETAL: No back pain. No muscle pain or weakness. No tingling/numbness. UROLOGIC: No pain with urination. No difficulty urinating. No frequent urination. NEUROLOGIC: No burning pain in feet. No trouble with coordination. No loss of consciousness. No headache. No tingling/numbness. No memory loss. PHYSICAL EXAMINATION: GENERAL: She is a pleasant woman in no apparent distress. VITAL SIGNS: Stable. She is afebrile. HEENT: Normocephalic, atraumatic NECK AND THYROID: Supple. No JVD, thyromegaly, or lymphadenopathy. HEART: Normal S1, S2. Regular rate and rhythm. LUNGS: Clear to auscultation and percussion. ABDOMEN: Soft. Nontender, nondistended. Bowel sounds present. EXTREMITIES: Normal ROM. No clubbing. No edema. LABORATORY DATA: White count of 7.9, hemoglobin 9.5, hematocrit of 29.2, platelet count of 25,000. Peripheral smear shows metamyelocytes and myelocytes. Her glucose of 124, BUN of 62, EGFR 32. Sodium 137, potassium 4.5, chloride 103, bicarbonate 29, calcium 9.6. ASSESSMENT: 1. -5 q. MDS. 2. Pancytopenia secondary to #1. 3. History of myocardial infarction and stroke. PLAN: We will be starting her on chemotherapy as outpatient. The patient does not qualify Revlimid because of the patient's history of stroke and heart attacks and Revlimid causing blood clots. Once they get the records from [facility] and discuss with Dr. Zuñiga for further intervention. In the meantime, she is status post 4 units of packed RBC on this admission. The patient will be going to [facility]. [place], [place] PROGRESS NOTE NAME: MARIA DEL CARMEN PLATA UNIT #: [id number] ROOM: [facility] DOCTOR: DEEPALI LINDA MD BIRTHDATE: [birth year] DEEPALI LINDA MD CM:PNTRANS [phone] DEEPALI LINDA MD 12/30/16 0117 interface
--- NOTE | ~2016-12-24 | PR ---
[place], [place] PROGRESS NOTE NAME: MARIA DEL CARMEN PLATA [facility] #: [id number] UNIT #: [id number] ROOM: 504 DOCTOR: DEEPALI LINDA MD BIRTHDATE: [birth year] DOS: 12/28/2016 SUBJECTIVE: The patient is doing better. She is awake, alert and responsive. REVIEW OF SYSTEMS: HEENT: No trouble swallowing. No double vision. No loss of vision. No pain. ENT AND RESPIRATORY: No wheeze. No change in voice. No cough. No shortness of breath. No coughing up blood. No epistaxis. CARDIOLOGIC: No chest pain. No dizziness. No irregular heartbeat. No leg edema. No palpitations. No shortness of breath. HEMATOLOGIC AND LYMPH: No past transfusion. No fatigue. No loss of appetite. No easy bruising. GASTROENTEROLOGIC: No change in bowel habits. No vomiting blood. No abdominal cramping. No nausea. No vomiting. No diarrhea. No constipation. No blood in stool. FEMALE REPRODUCTIVE: No dyspareunia. No pelvic pain. MUSCULOSKELETAL: No back pain. No muscle pain or weakness. No tingling/numbness. UROLOGIC: No pain with urination. No difficulty urinating. No frequent urination. NEUROLOGIC: No burning pain in feet. No trouble with coordination. No loss of consciousness. No headache. No tingling/numbness. No memory loss. PHYSICAL EXAMINATION: GENERAL: She is a pleasant woman in no apparent distress. VITAL SIGNS: Stable. She is afebrile. HEENT: Normocephalic, atraumatic NECK AND THYROID: Supple. No JVD, thyromegaly, or lymphadenopathy. HEART: Normal S1, S2. Regular rate and rhythm. LUNGS: Clear to auscultation and percussion. ABDOMEN: Soft. Nontender, nondistended. Bowel sounds present. EXTREMITIES: Normal ROM. No clubbing. No edema. LABORATORY DATA: White count of 6.2, hemoglobin 9.1, hematocrit 27.4, platelet count 24,000. Peripheral smear shows metamyelocytes and basophils. ASSESSMENT: 1. -5q myelodysplastic syndrome. 2. History of strokes and myocardial infarction. 3. Pancytopenia secondary to myelodysplastic syndrome with drop in platelet count. 4. Gastroesophageal reflux disease. 5. Chronic kidney disease. PLAN: I discussed the case with Dr. Zuñiga from [facility] [address]. The patient's platelet count is about 22,000. Anticoagulation is a big problem on her. At this point, as per the patient aspirin and Plavix were stopped. I will wait until her overall condition improves. We will review the records from [facility]. Depending on the further intervention, she may need chemotherapy for her MDS. I have asked [facility] [address] to send me all the records. [place], [place] PROGRESS NOTE NAME: MARIA DEL CARMEN PLATA UNIT #: [id number] ROOM: [facility] DOCTOR: DEEPALI LINDA MD BIRTHDATE: [birth year] Depending upon that, further intervention discussed. We will follow. Ample time was given to the patient to ask me questions. DEEPALI LINDA MD CM:PNROQUE [id number] DEEPALI LINDA MD 12/29/16 0158 interface
--- NOTE | ~2016-12-24 | CON ---
[place], [place] REPORT OF CONSULTATION NAME: [facility] DEL CARMEN PLATA [facility] [id number] UNIT #: [id number] ROOM: 504 DOCTOR: DEEPALI LINDA MD BIRTHDATE: [birth year] DOS: 12/25/2016 HISTORY OF PRESENT ILLNESS: The patient is a pleasant 76-year-old [place] woman with a history of myelodysplastic syndrome with -5q syndrome diagnosed in June 2016 and has had multiple transfusions in the past, states on the day of admission she felt extremely tired, nauseous, vomiting and short of breath. Subsequently, she came to the Emergency Room where she was found to have a very low hemoglobin, hematocrit and consulted for further evaluation and management. She had upper GI workup done by Dr. Jeter and supposed to get a ____ which she has not had it yet. She was also sent to [facility] for a second opinion where a blood work was done and she was supposed to see him today to discuss about her test. No CT scan of the head showed no acute intracranial bleed. Chest x-ray showed no significant change. PAST MEDICAL HISTORY: Significant for -5q myelodysplastic syndrome, history of transient ischemic attacks, history of myocardial infarction, GERD, depression, cerebrovascular accident, coronary artery disease, hypothyroidism, hyperlipidemia, neuropathy, right bundle branch block, retinopathy, stage III chronic kidney disease, type 2 diabetes mellitus. PAST SURGICAL HISTORY: Appendectomy, cataract surgery, hysterectomy, coronary artery stent placement. SOCIAL HISTORY: No smoking, drinking, or drug abuse. FAMILY HISTORY: Father in an accident aged 22. Mother of gyne cancer, 62, also had history of hypertension, diabetes. Brother had diabetes, coronary artery disease, age 52. One brother had brain and lung cancer, 58. Second brother had esophageal cancer, age 50, sister had diabetes and kidney failure, age 62. Mother had coronary artery disease and diabetes. ALLERGIES: No known allergies. MEDICATIONS: On aspirin, acetaminophen, vitamin D, Lipitor, Plavix, isosorbide mononitrate, levothyroxine sodium, linagliptin. metoprolol succinate, midodrine, nitroglycerin, Protonix, Evista, Zoloft. REVIEW OF SYSTEMS: CONSTITUTIONAL: No chills. No fatigue. No fever. No loss of appetite. No night sweats. No weakness. No weight loss. HEENT: No trouble swallowing. No loss of smell. No loss of hearing. No double vision. No pain. No discharge. ENT AND RESPIRATORY: No wheeze. No sore throat. No change in voice. No hearing loss. No nose bleed. No cough. No trouble breathing through nose. No shortness of breath. No coughing up blood. No epistaxis. CARDIOVASCULAR: No chest pain. No dizziness. No irregular heartbeat. No leg edema. No pain in legs while walking. No palpitations. No shortness of breath. DERMATOLOGIC: No acne. No hives. No laceration. No mole. No rash. [place], [place] REPORT OF CONSULTATION NAME: MARIA DEL CARMEN PLATA UNIT #: [id number] ROOM: [facility] DOCTOR: DEEPALI LINDA MD BIRTHDATE: [birth year] ENDOCRINE: No cold intolerance. No diabetes. No fatigue. No hot flashes. No polydipsia. No polyuria. No urinating frequently. No weight loss. HEMATOLOGIC AND LYMPH: No fatigue. No easy bruising. GASTROENTEROLOGIC: No change in bowel habits. No indigestion. No frequent bloating. No vomiting blood. No abdominal cramping. No nausea. No heartburn. No vomiting. No abdominal pain. No dysphagia. No diarrhea. No constipation. No blood in stool. FEMALE REPRODUCTIVE: No vaginal itching. No difficulty urinating. No heavy periods. No dyspareunia. No sexually active. No dysmenorrhea. No pelvic pain. No breast pain. No nipple discharge. No abnormal vaginal discharge. No hot flashes. MUSCULOSKELETAL: No back pain. No muscle pain or weakness. No neck pain. No tingling/numbness. No swelling/bruising. No osteoporosis treatment. OPTHALMOLOGIC: No double vision. No diminished vision. No loss of vision. UROLOGIC: No dysuria. No frequent nighttime urination. No irregular periods. No pain with urination. No difficulty urinating. No blood in urine. No frequent urination. No urinary incontinence. NEUROLOGIC: No loss of sensation in specific body area. No vertigo. No burning pain in feet. No trouble with balance. No trouble with coordination. No loss of consciousness. No loss of feeling/power. No confusion. No headache. No tingling/numbness. PSYCHOLOGIC: No tinnitus. No headaches. No shortness of breath. No weight decrease. No nausea. No vomiting. No abdominal discomfort. No constipation. No diarrhea. No depression. No anxiety. PHYSICAL EXAMINATION: GENERAL: Pleasant woman in no apparent distress, nervous. VITAL SIGNS: Stable. She is afebrile. HEENT: Oral mucosa appears intact. The external ears are normal in appearance. Nares are patent without lesions, exudates, erythema, or inflammation. Tongue is symmetrical. Uvula is midline. NECK AND THYROID: Neck supple without palpable masses. Trachea is midline. No thyromegaly. No carotid bruit or JVD. BREASTS: Normal. Nipples unremarkable. No drainage. No lumps felt on either side. HEART: Normal S1, S2, without significant murmur, rub, or gallop. LUNGS: Clear to auscultation and percussion with good air entry bilaterally. The patient is breathing easily without the use of accessory muscles. Diaphragmatic excursions are intact. ABDOMEN: No costovertebral angle tenderness. Soft. No organomegaly or masses. Nontender. No hernias present. Liver and spleen are not palpable. LYMPHATIC: No adenopathy noted in the cervical, supraclavicular, axillary, or inguinal regions. NEUROLOGIC: Nonfocal. Oriented to person, place, and time. MENTAL STATUS: Appropriate for mood and affect. PERIPHERAL PULSES: No varicosities. Femoral and pedal pulses are palpable. EXTREMITIES: Without cyanosis, clubbing, or edema. No gross anomalies. LABORATORY DATA: Sodium 132, potassium 4.7, chloride 97, bicarbonate 43. On admission, her white count 7.8, hemoglobin 8.8, hematocrit 26.3, platelet count [place], [place] REPORT OF CONSULTATION NAME: MARIA DEL CARMEN PLATA UNIT #: [id number] ROOM: [facility] DOCTOR: DEEPALI LINDA MD BIRTHDATE: [birth year] of 32,000. Repeat peripheral smear shows metamyelocytes and myelocytes. ASSESSMENT: 1. -5q myelodysplastic syndrome. 2. Severe anemia requiring multiple transfusions in the last few months. Last night also she got multiple units of blood. 3. Pancytopenia. 4. Dyspnea on exertion. 5. Gastroesophageal reflux disease. PLAN: I strongly advised to see Dr. Jeter for further ____ test, which she was supposed to get an outpatient. In addition, we will wait for documentation from [facility] about the treatment plan since she had a history of stroke and myocardial infarction and is not a candidate for Revlimid. Depending upon the workup done at [facility] further intervention. I had a detailed discussion with the patient about it and she seemed to understand it. Ample time was given to the patient to ask me questions. We will follow. Thanks for consulting and letting me participate in the care of this interesting patient. DEEPALI LINDA MD CM:CONSTR:REPORT OF CONSULTATION 0842 12/25/16 0928 interface
[~2016-12-24 09:41] MED LIST changes: +CIPROFLOXACIN500 M4 PO
[2016-12-24 10:48] LABS: MEAN CELL VOLUME 98.2 fl (81.0-99.0); MEAN CORPUSCULAR HGB 32.5 pg (27.0-31.0); MEAN CORPUSCULAR HGB CONC 33.1 g/dl (33.0-37.0); MEAN PLATELET VOLUME 13.5 fl (9.6-12.3); NUCLEATED RED BLOOD CELL 0.4 % (0.0-0.0); PLATELET COUNT AUTOMATED 36 10*3/uL (130-400); RED BLOOD COUNT 1.63 10*6/uL (4.10-5.10); RED CELL DISTRI WIDTH 19.4 % (0-14.5); WHITE BLOOD COUNT 5.2 10*3/uL (4.8-10.8)
[2016-12-24 11:01] LABS: ALBUMIN 2.8 gm/dl (3.1-4.5); CREATININE 1.59 mg/dL (0.55-1.02); POTASSIUM 4.7 mmol/L (3.5-5.1); TOTAL PROTEIN 6.3 gm/dL (6.4-8.2)
--- NOTE | 2016-12-24 11:10 | NUR ---
CRITICAL LABS RECEIVED AT THIS TIME. MITRA ULRICH NOTIFIED AT THIS TIME.
[2016-12-24 11:11] LABS: HEMOGLOBIN 5.3 g/dl (12.0-16.0)
[2016-12-24 11:14] LABS: PLATELET SUFFICIENCY LOW (NORMAL); POLYCHROMASIA SLIGHT; TOTAL CELLS COUNTED 100 #CELLS
[2016-12-24 11:22] LABS: INTERNATIONAL NORM RATIO 1.1 (2.0-3.5)
[2016-12-24 12:59] LABS: BILIRUBIN NEGATIVE (NEGATIVE); BLOOD 1+ (NEGATIVE); CLARITY SL CLOUDY (CLEAR); COLOR YELLOW (YELLOW); GLUCOSE 3+ (NEGATIVE); KETONE NEGATIVE (NEGATIVE); LEUKO ESTERASE NEGATIVE (NEGATIVE); NITRITE NEGATIVE (NEGATIVE); PH 5.5 (5.0-9.0); SPECIFIC GRAVITY 1.015 (1.005-1.030); UROBILINOGEN 0.2 E.U./dl (0.2-1.0)
[2016-12-24 13:10] LABS: BACTERIA 1+; WBC 16-20 wbc/hpf (0-5)
--- NOTE | 2016-12-24 13:12 | NUR ---
PT MEDICATED FOR PAIN AT THIS TIME PER DR ORDERS.
--- NOTE | 2016-12-24 13:20 | NUR ---
ORAL TEMP 100.7 PRIOR TO STARTING BLOOD TRANSFUSION. MITRA HEALY HAS BEEN MADE AWARE OF THIS. CAROLE CRUMP RN
--- NOTE | 2016-12-24 14:00 | NUR ---
PT STATES THAT PAIN MEDICATION WAS EFFECTIVE. PT RESTING IN BED. PT AROUSES EASILY. WILL CONTINUE TO MONTIOR.
--- NOTE | 2016-12-24 14:30 | NUR ---
ORAL TEMP AT THIS TIME IS 101.3. MITRA NOTIFIED. NO NEW ORDERS RECEIVED. THIS RN CALLED TO THE 5TH FLOOR TO INFORM RECEIVING RN THAT THE TEMPERATURE HAD INCREASES. HOSPITAL POLICY PRINTED AT THIS TIME AND IT IS NOTED IN THE POLICY THAT A REACTION TO BLOOD TRANSFUSION WOULD BE CONSIDERED IN THE TEMP INCREASED BY TWO DEGREES F.
--- NOTE | 2016-12-24 14:45 | NUR ---
PT TAKEN TO THE 5TH FLOOR FOR ADMISSION. HIPOLITO STANTON PROVIDED WITH CURRENT VITAL SIGNS AND A HARD COPY OF HOSPITAL POLICY FOR BLOOD TRANSFUSION. [employer] CONCRETE BATCHER SOLITARIO OZUNA IN THE DEPT WELL AND SHE WAS ALSO UPDATED ON PT STATUS AND CURRENT TEMP.
--- NOTE | 2016-12-24 14:58 | NUR ---
PHYSICAL THERAPY PAtient not medically appropriate for PT evaluation this date. Will attempt at a later date. Thank you for this referral. Nano Hylton,PT
--- NOTE | 2016-12-24 14:59 | NUR ---
Occupational Therapy order received and chart reviewed. Patient does not appear medically appropriate this date for OT eval. OTR will recheck at a later date. Izabela Bustos OTR/jonathon
--- NOTE | 2016-12-24 15:10 | NUR ---
A 76, admitted to , under the services of HOLLAND Schumacher DO with a diagnosis of ANEMIA. Chief complaint is WEAKNESS. Patient arrived via stretcher from ER. Monitor applied. Initial assessment completed. Vital signs taken and recorded. HOLLAND SCHUMACHER DO notified of admission to the unit. Orders received. See assessment for past medical history, medications and allergies. Patient and/or family oriented to unit. [facility] Clothing/patient valuable form completed. GLORY COMBS
--- NOTE | 2016-12-24 17:36 | NUR ---
REFUSING DR. HURLEY CONSULT.
--- NOTE | 2016-12-24 18:13 | NUR ---
DR. NATARAJAN AWARE OF TROPONIN NAD REFUSAL OF DR. HURLEY CONSULT. DR. LINDA AWARE OF CONSULT.
--- NOTE | 2016-12-24 21:05 | NUR ---
DR KENNEY AWARE OF CRITICAL TROPONIN
--- NOTE | 2016-12-24 22:00 | NUR ---
Informed consent obtained from patient for Blood transfussion by . Patient identified by arm band. Vital signs recorded. Blood unit number verified by 2 R.N.'s. I.V. site satisfactory. Unit started at a KVO rate with Normal Saline. HAMZAH LUGO
[2016-12-25 00:15] VITALS: BP 169/57
--- NOTE | 2016-12-25 00:21 | NUR ---
Dr. Sotelo already on floor and was notified of critical Troponin level result. No new orders were received at this time.
--- NOTE | 2016-12-25 00:48 | NUR ---
24 HR chart check completed.
[2016-12-25 06:35] LABS: MEAN CORPUSCULAR HGB 28.7 pg (27.0-31.0); MEAN CORPUSCULAR HGB CONC 33.5 g/dl (33.0-37.0); NUCLEATED RED BLOOD CELL 0.5 % (0.0-0.0); PLATELET COUNT AUTOMATED 32 10*3/uL (130-400); RED BLOOD COUNT 3.07 10*6/uL (4.10-5.10); RED CELL DISTRI WIDTH 22.9 % (0-14.5); WHITE BLOOD COUNT 7.8 10*3/uL (4.8-10.8)
[2016-12-25 06:37] LABS: HEMATOCRIT 26.3 % (37.0-47.0); HEMOGLOBIN 8.8 g/dl (12.0-16.0); MEAN CELL VOLUME 85.7 fl (81.0-99.0)
[2016-12-25 06:54] LABS: ALBUMIN 2.5 gm/dl (3.1-4.5); CREATININE 1.8 mg/dL (0.55-1.02); PHOSPHOROUS 2.7 mg/dL (2.5-4.9); POTASSIUM 4.5 mmol/L (3.5-5.1)
[2016-12-25 06:55] LABS: TOTAL PROTEIN 5.9 gm/dL (6.4-8.2)
[2016-12-25 07:05] LABS: BASOPHILS 1 % (0-1); TOTAL CELLS COUNTED 100 #CELLS
[2016-12-25 07:06] LABS: PLATELET SUFFICIENCY LOW (NORMAL); POLYCHROMASIA SLIGHT
[2016-12-25 08:00] VITALS: BP 152/67
--- NOTE | 2016-12-25 09:00 | NUR ---
Incident Response Coordinator in to talk to patient. Patient states lives at home with daughter. There are no steps in the home. Physician: nadja powers Pharmacy: [facility] Home health services: none Patient's level of ADLs: MINIMAL ASSIST Patient has working utilities: all working DME: cane/walker Follow-up physician's appointment after d/c: will be made by hospitalist nurse director upon discharge Does patient want to access PORTAL?: no Discharge plan discussed with patient, patient lives at home with daughter, she states she uses a walker for ambulation, patient states she will be going home when able, discussed with her VNA and she refused any services at this time, case management will follow for any needs. NARENDRA FOFANA
--- NOTE | 2016-12-25 10:15 | NUR ---
PHYSICAL THERAPY Patient [facility] MD [facility] and then LAB, Will attempt later this date. Thank you for this referral. Nano Hylton,PT
--- NOTE | 2016-12-25 10:18 | NUR ---
Patient was not available for OT evaluation as she was with the clinical lab clerk and then with the doctor. OTR will recheck at a later date. Izabela Bustos OTR/l
--- NOTE | 2016-12-25 11:34 | NUR ---
Recieved order from Dr. Han for [facility]. Contacted Marylu who stated patients insurance, [employer] doesn't approve LTACHs. Notified Kiersten, nurse director of hospitalists.
--- NOTE | 2016-12-25 11:51 | NUR ---
PHYSICAL THERAPY PAtient evaluated on 5, full evaluation to follow. Continue with PT as per plan of care with fall, mod (A), significant acute debility precautions. May require SNF for impaired mobilty. PAtient is high complexity via chart review, tests and evaluation: 29971. Thank you for this referral. Nano Hylton,PT
[2016-12-25 12:00] VITALS: BP 147/54
[2016-12-25 12:09] VITALS: BP 145/55
--- NOTE | 2016-12-25 13:28 | NUR ---
In to see patient, explained her insurance doesn't approve going to an LTACH or [facility]. Discussed snf placement, patient stated she has been to [facility] and the past and is willing to go. Contacted Sarah and faxed referral. Waiting on acceptance, will require precert.
--- NOTE | 2016-12-25 15:10 | NUR ---
Patient has been accepted to [facility], precert started, waiting on auth.
[2016-12-25 16:00] VITALS: BP 144/45
[2016-12-25 20:00] VITALS: BP 136/58
--- NOTE | 2016-12-25 22:46 | NUR ---
DR. ACOSTA NOTIFIED OF CRITICAL GLUCOSE REFLEX OF 507.
--- NOTE | 2016-12-25 22:59 | NUR ---
PATIENT MEDICATED WITH NORCO PER PRN ORDER FOR C/O BACK DISCOMFORT. RATED PAIN A 5/10 WITH 10 BEING THE WORST. SEE EMAR. REINFORCED USE OF CALL LIGHT.
[2016-12-26] VITALS (13 sets, daily range): BP systolic 116–158; BP diastolic 46–72
[2016-12-26 06:53] LABS: HEMATOCRIT 25.1 % (37.0-47.0); HEMOGLOBIN 8.3 g/dl (12.0-16.0); MEAN CELL VOLUME 87.5 fl (81.0-99.0); MEAN CORPUSCULAR HGB 28.9 pg (27.0-31.0); MEAN CORPUSCULAR HGB CONC 33.1 g/dl (33.0-37.0); NUCLEATED RED BLOOD CELL 0.3 % (0.0-0.0); PLATELET COUNT AUTOMATED 30 10*3/uL (130-400); RED BLOOD COUNT 2.87 10*6/uL (4.10-5.10); RED CELL DISTRI WIDTH 22.9 % (0-14.5); WHITE BLOOD COUNT 7.3 10*3/uL (4.8-10.8)
[2016-12-26 07:28] LABS: CREATININE 1.65 mg/dL (0.55-1.02)
[2016-12-26 07:29] LABS: ATYPICAL LYMPHS 1 % (0-0); BASOPHILS 3 % (0-1); PLATELET SUFFICIENCY LOW (NORMAL); TOTAL CELLS COUNTED 100 #CELLS
--- NOTE | 2016-12-26 08:52 | NUR ---
case management visits with patient, liaison planner is working on getting patient to [facility] for rehab, patient will need an insurance precert prior to going
--- NOTE | 2016-12-26 11:39 | NUR ---
PATIENT SEEN 1:1 OT THIS DATE. PATIENT IN BED UPON ARRIVAL. PATIENT IDENTIFIED BY NAME AND DATE OF . PATIENT COMPLETED SUPINE TO SIT EOB MOD A WITH VERBAL CUES TECH/FORM. COMPLETED SIT BAL EOB CGA WITH P+/F - ACT TOLERANCE THIS DATE COMPLETING GROOMING MOD A AND AROM DISTAL ONLY ALL PLANES X 10 REPS WITH C/O FATIGUE. PATIENT REPORTS SHOULDERS FELT SORE. PATIENT REQUESTED TO LIE BACK DOWN COMPLETING SIT TO SUPINE MOD A. PATIENT CALL LIGHT WITHIN REACH NO FURTHER NEEDS VERBALIZED. FREDY BRENNAN/Noble
--- NOTE | 2016-12-26 12:20 | NUR ---
ONE UNIT PACKED CELLS UP AND RUNNING.
--- NOTE | 2016-12-26 12:25 | NUR ---
PRN PAIN MED GIVEN FOR 3/10 HEADACHE.
--- NOTE | 2016-12-26 12:58 | NUR ---
PHYSICAL THERAPY Pt eating her breakfast, came back and nursing in to see Padmini this AM therapy visit. EZEQUIEL SANTIZO INSURANCE EXECUTIVE.
--- NOTE | 2016-12-26 13:00 | NUR ---
PHYSICAL THERAPY Back this PM to treat Pt and Padmini getting blood at this time. EZEQUIEL SANTIZO STENO POOL SUPERVISOR.
--- NOTE | 2016-12-26 13:25 | NUR ---
PRN PAIN MED EFFECTIVE, PT DENIES PAIN.
--- NOTE | 2016-12-26 14:04 | NUR ---
Patient accepted to [facility]. Patient can go when medically stable for discharge
[2016-12-26 17:33] LABS: HEMATOCRIT 29.8 % (37.0-47.0); HEMOGLOBIN 9.9 g/dl (12.0-16.0)
--- NOTE | 2016-12-26 19:31 | NUR ---
PT RECEIVED 1 UNIT PACKED CELLS , HUNG AT 1220, COMPLETED AT 1500. PT TOLERATED WELL.
--- NOTE | 2016-12-26 22:41 | NUR ---
BLOOD SUGAR REFLEX WAS 536. DR KENNEY NOTIFIED . ORDERS RECEIVED.
[2016-12-27] VITALS: BP 165/71
--- NOTE | 2016-12-27 00:45 | NUR ---
DR. KENNEY NOTIFIED OF CRITICAL BLOOD SUGAR REFLEX OF 500. ORDERS RECEIVED.
[2016-12-27 06:34] LABS: HEMOGLOBIN 9.9 g/dl (12.0-16.0); MEAN CELL VOLUME 87.7 fl (81.0-99.0); MEAN CORPUSCULAR HGB 28.9 pg (27.0-31.0); NUCLEATED RED BLOOD CELL 0.1 10*3/uL (0.0-0.0); RED BLOOD COUNT 3.42 10*6/uL (4.10-5.10); RED CELL DISTRI WIDTH 21.3 % (0-14.5); WHITE BLOOD COUNT 4.8 10*3/uL (4.8-10.8)
[2016-12-27 06:54] LABS: TOTAL CELLS COUNTED 50 #CELLS
[2016-12-27 06:55] LABS: PLATELET SUFFICIENCY LOW (NORMAL); POLYCHROMASIA SLIGHT
[2016-12-27 06:56] LABS: PLATELET COUNT AUTOMATED 24 10*3/uL (130-400)
--- NOTE | 2016-12-27 06:59 | NUR ---
DR. KENNEY NOTIFIED OF CRITICAL PLATELET RESULT OF 24.
[2016-12-27 07:17] LABS: POTASSIUM 4.7 mmol/L (3.5-5.1)
[2016-12-27 07:20] LABS: CREATININE 1.88 mg/dL (0.55-1.02)
[2016-12-27 08:00] VITALS: BP 148/70
--- NOTE | 2016-12-27 08:00 | NUR ---
PT RESTING IN BED, EATING BREAKFAST. NO DISTRESS NOTED. NO VOICED C/O. WILL MONITOR
[2016-12-27 12:00] VITALS: BP 146/59
--- NOTE | 2016-12-27 15:27 | NUR ---
PT. INSTRUCTED ON FLUTTER FOR USE AND PURPOSE. PT. DEMONSTRATED USE AND HAS NOT QUESTIONS AT THIS TIME. Q4 HOUR USE GIVEN AND TO TAKE HOME UPON DISCHARGE.
[2016-12-27 16:00] VITALS: BP 145/56
[2016-12-27 20:00] VITALS: BP 164/53
--- NOTE | 2016-12-27 20:00 | NUR ---
PT. ALERT AND ORIENTED X 3 AT THIS TIME. PT. IN BED, S1S2, PPP, NO EDEMA, DENIES CP. PTS. LUNGS DIMINISHED, PRODUCTIVE COUGH - YELLOW SPUTUM PER PT., PT. DENIES SOB ON 2L NC. NORMO X4 QUADS, DENIES N/V/D. PT. HAS MEDIPORT IN LEFT SUBCLAVIAN. CALL LIGHT WITHIN REACH, BED IN LOWEST POSITION, WHEELS LOCKED.
--- NOTE | 2016-12-27 20:57 | NUR ---
@[address] MENSAH REGARDING PTS. INFILTRATED IV, AND TO GET THE OK TO USE THE PTS. MEDIPORT. PER DR. MENSAH IT IS OK TO USE THE MEDIPORT, AND A MESSAGE IS TO BE ORDERED ON THE PT. STATING SO.
--- NOTE | 2016-12-27 21:36 | NUR ---
PT. GIVEN TYELENOL AT THIS TIME FOR MILES. WILL MONITOR FOR EFFECTIVENESS.
--- NOTE | 2016-12-27 22:00 | NUR ---
PT. STATED "SOME RELIEF" OF MILES.
--- NOTE | 2016-12-27 22:15 | NUR ---
CRITICAL HIGH X 2 ON BEDSIDE GLUCOSE TEST. ORDERED STAT REFLEX PER POLICY.
--- NOTE | 2016-12-27 22:51 | NUR ---
NOTIFIED DR. MENSAH AT THIS TIME OF PTS. CRITICAL BLOOD GLUCOSE OF 516.
[2016-12-28] VITALS: BP 158/57
[2016-12-28 06:00] LABS: HEMATOCRIT 27.4 % (37.0-47.0); HEMOGLOBIN 9.1 g/dl (12.0-16.0); MEAN CELL VOLUME 88.4 fl (81.0-99.0); MEAN CORPUSCULAR HGB 29.4 pg (27.0-31.0); MEAN CORPUSCULAR HGB CONC 33.2 g/dl (33.0-37.0); NUCLEATED RED BLOOD CELL 0.1 10*3/uL (0.0-0.0); NUCLEATED RED BLOOD CELL 0.8 % (0.0-0.0); RED CELL DISTRI WIDTH 21.3 % (0-14.5); WHITE BLOOD COUNT 6.2 10*3/uL (4.8-10.8)
[2016-12-28 06:14] LABS: ALBUMIN 2.5 gm/dl (3.1-4.5); CREATININE 1.82 mg/dL (0.55-1.02); POTASSIUM 5.4 mmol/L (3.5-5.1); TOTAL PROTEIN 5.7 gm/dL (6.4-8.2)
[2016-12-28 06:48] LABS: BASOPHILS 2 % (0-1); PLATELET SUFFICIENCY LOW (NORMAL); POLYCHROMASIA SLIGHT; TOTAL CELLS COUNTED 100 #CELLS
--- NOTE | 2016-12-28 06:55 | NUR ---
LAB CALLED THIS NURSE TO REPORT CRITICAL LAB VALUE OF PLATELETS OF 24. DR. ARCHULETA NOTIFIED. SHE STATED THAT SHE WOULD LIKE DR. LINDA NOTIFIED AND TO CONTINUE TO MONITOR PT.
[2016-12-28 06:56] LABS: PLATELET COUNT AUTOMATED 24 10*3/uL (130-400)
--- NOTE | 2016-12-28 07:51 | NUR ---
DR. LINDA NOTIFIED OF CRITICAL LAB ON PT. NO NEW ORDERS RECEIVED AT THIS TIME.
[2016-12-28 08:00] VITALS: BP 162/62
--- NOTE | 2016-12-28 08:00 | NUR ---
PT RSTING IN BED, NO DISTRESS NOTED. WILL MONITOR
--- NOTE | 2016-12-28 10:26 | NUR ---
SPOKE WITH DR ARCHULETA REGARDING PT LABS
[2016-12-28 12:00] VITALS: BP 120/50
[2016-12-28 16:00] VITALS: BP 130/54
--- NOTE | 2016-12-28 19:40 | NUR ---
PT. AWAKE, ALERT AND ORIENTED X 3. PT. IN BED AT THIS TIME. PT. DENIES SOB WHILE IN BED, BUT STATED THAT WHEN AMBULATING SHE BECOMES SOB AT TIMES. PT. DENIES CP. CALL LIGHT WITHIN REACH, BED IN LOWEST POSITION, WHEELS LOCKED. SEE SHIFT ASSESSMENT.
[2016-12-28 20:00] VITALS: BP 147/39
[2016-12-29] VITALS: BP 151/69
[2016-12-29 06:43] LABS: HEMATOCRIT 29.2 % (37.0-47.0); HEMOGLOBIN 9.5 g/dl (12.0-16.0); MEAN CELL VOLUME 88.5 fl (81.0-99.0); MEAN CORPUSCULAR HGB 28.8 pg (27.0-31.0); MEAN CORPUSCULAR HGB CONC 32.5 g/dl (33.0-37.0); NUCLEATED RED BLOOD CELL 0.3 % (0.0-0.0); WHITE BLOOD COUNT 7.9 10*3/uL (4.8-10.8)
[2016-12-29 07:00] LABS: CREATININE 1.55 mg/dL (0.55-1.02); POTASSIUM 4.5 mmol/L (3.5-5.1)
[2016-12-29 07:13] LABS: ATYPICAL LYMPHS 1 % (0-0); PLATELET SUFFICIENCY LOW (NORMAL); POLYCHROMASIA SLIGHT; TOTAL CELLS COUNTED 100 #CELLS
[2016-12-29 07:15] LABS: PLATELET COUNT AUTOMATED 25 10*3/uL (130-400)
--- NOTE | 2016-12-29 07:23 | NUR ---
DR. LINDA NOTIFIED OF PTS. CRITICAL LAB PLATELETS OF 25. NO NEW ORDERS.
[2016-12-29 08:00] VITALS: BP 150/52
--- NOTE | 2016-12-29 08:00 | NUR ---
PT RESTING IN BED. NO DISTRESS NOTED; NO VOICED C/O. WILL MONITOR
--- NOTE | 2016-12-29 08:10 | NUR ---
OCCUPATIONAL THERAPY CO-SIGN I approve of the Occupational Therapy notes written above. JUAN F RANDHAWA OTR/Noble
--- NOTE | 2016-12-29 09:00 | NUR ---
landscape architect and planner is working on patient going to [facility] today, case management will follow
--- NOTE | 2016-12-29 09:00 | NUR ---
technical planner is working on getting patient to [facility], case management will follow
--- NOTE | 2016-12-29 11:03 | NUR ---
PHYSICAL THERAPY Mrs Hardy seen this AM 1:1 for her therapy session and doing better then last week. Transfer supine/sit CG X 1, sitting balance supervision X 1, X 6 min no LOB. Sit/stand and standing balance MIN A X 1. Followed by gait 75' X 1, with MOD SALSA DANCE INSTRUCTOR X 1, and using the quinonez hand rail at times. Verbal cues for gait safety, balance and turns. Padmini wanting to go back to bed after this and just a little SOB after this gait, Pt with call light and phone. EZEQUIEL SANTIZO NURSE OB.
--- NOTE | 2016-12-29 11:14 | NUR ---
PATIENT SEEN 1:1 OT THIS DATE 25 MINUTES. PATIENT IDENTIFIED BY NAME AND DATE OF . PATIENT COMPLETED UB DRESSING TASK DONNING GOWN MOD A AND COMPLETED GROOMING SEATED EOB MIN A MANAGE CONTAINERS FOR DENTURE CARE. PATIENT DEMONSTRATED SIT BALANCE EOB SBA THIS DATE WITH C/O FATIGUE. COMPLETED SIT TO STAND FROM BED CGA WITH VERBAL INSTRUCITON PROPER HAND PLACEMENT FOR FALL PREVENTION. PATIENT COMPLETED STANDING TOLERANCE ACTIVITY USE FWW SUPPORT 1 MINUTE X 1 AND 2 MINUTES X SECOND WITH MIN A TO MAINTAIN BALANCE. PATIENT COMPLETED BUE AROM SEATED 5 EXERCISES ALL PLANES SEATED EOB X 10 REPS WITH MODERATE REST BREAKS AND MIN VERBAL/VISUAL CUES TECHNIQUE AND FORM FOR OVERALL INCREASE FUNCTIONAL PERFORMANCE. PATIENT REQUESTED TO LIE BACK DOWN CGA SIT TO SUPINE. PATIENT CALL LIGHT WITHIN REACH WITH NO FURTHER NEEDS VERBALIZED. FREDY BARRERA
--- NOTE | 2016-12-29 11:34 | NUR ---
Received authorization from Doris carrillo [place] for patient to go to [facility] today. Notified Kiersten nurse director for hospitalists. Notified Sarah at [facility] patient has auth and same auth number until the .
[2016-12-29 12:00] VITALS: BP 153/49
[2016-12-29] MEDS ORDERED: IMDUR SA60 M1 PO (13:41)
[2016-12-29] MEDS ORDERED: LEVEMIR100 UNIT/1 SC (13:41)
[2016-12-29] MEDS ORDERED: Insulin Lispro, Reco SC (13:41)
[2016-12-29] MEDS ORDERED: LEVOFLOXACIN500 MG PO (13:42)
[2016-12-29] MEDS ORDERED: PREDNISONE10 MG PO (13:42)
--- NOTE | 2016-12-29 14:02 | NUR ---
Patient is being discharged to [facility], transportation scheduled for 3PM via private car with daughter. NH and nursing notified
--- NOTE | 2016-12-29 14:15 | NUR ---
DR LINDA HERE TO SEE PT
--- NOTE | 2016-12-29 14:15 | NUR ---
REPORT CALLED TO TIARA LANDEROS
--- NOTE | 2016-12-29 14:36 | NUR ---
PHYSICAL THERAPY Patient presented to therapy with report of fatigue and some weakness due to her anemia. Patient performed supine to sitting at EOB with SBA. Patient performed sit to stand with SBA. Patient performed gait with W/W x 100' x 1 with CGA X 1. Patient transferred back to bed in supine Independently. Patient is suppossed to be [facility] today or tommorrow. Patient was 1:1 with this MEDICAL RECORDS CODER for 20 minutes total. Cali Trejo MEDICAL RECORDS CODER
--- NOTE | 2016-12-29 14:55 | NUR ---
PT DOES NOT WANT HER MEDIPORT ACCESS REMOVED IN CASE NEEDED AT [facility]. PT WANTS LEFT IN UNTIL SHE GETS TO [facility] AND THEY CAN REMOVE IF ITS NOT NEEDED
--- NOTE | 2016-12-29 15:04 | NUR ---
Discharge instructions reviewed with patient/family. Patient receptive and verbalizes understanding. Follow-up care arranged. Written instructions given to patient/family. DTR HERE TO TRANSPORT PT TO [facility] . [facility]
--- NOTE | 2016-12-29 15:08 | NUR ---
patient taken out via wheel chair with envelope for facility
--- NOTE | 2016-12-30 07:42 | NUR ---
PHYSICAL THERAPY CO-SIGN I approve of the Phyical Therapy notes written above. LAURENT NICHOLS PT
--- NOTE | 2016-12-31 08:36 | NUR ---
OCCUPATIONAL THERAPY CO-SIGN I approve of the Occupational Therapy notes written above. JUAN F RANDHAWA OTR/Noble
== END 2016-12-29 15:11 | disposition other institution (70) | DRG 871 ==
LOC: ED 09:41 → EDHOLD 13:07 → 5E 13:07
PROVIDERS: Emergency Medicine; Hospitalist; Internal Medicine; Internal Medicine Hematology & Oncology; Nurse Practitioner; ADMIT Internal Medicine
PROC: 30233N1 Transfusion of Nonautologous Red Blood Cells into Peripheral Vein, Percutaneous Approach (ICD-10-PCS; principal; 2016-12-24)
DX: A41.9 Sepsis, unspecified organism (principal); J18.9 Pneumonia, unspecified organism; D61.818 Other pancytopenia; E44.0 Moderate protein-calorie malnutrition; C95.90 Leukemia, unspecified not having achieved remission; E11.22 Type 2 diabetes mellitus with diabetic chronic kidney disease; E87.1 Hypo-osmolality and hyponatremia; D46.C Myelodysplastic syndrome with isolated del(5q) chromosomal abnormality; E11.40 Type 2 diabetes mellitus with diabetic neuropathy, unspecified; E11.65 Type 2 diabetes mellitus with hyperglycemia; R65.20 Severe sepsis without septic shock; K21.9 Gastro-esophageal reflux disease without esophagitis; F32.9 Major depressive disorder, single episode, unspecified; E78.2 Mixed hyperlipidemia; E03.9 Hypothyroidism, unspecified; N18.3 Chronic kidney disease, stage 3 (moderate); I12.9 Hypertensive chronic kidney disease with stage 1 through stage 4 chronic kidney disease, or unspecified chronic kidney disease; I25.10 Atherosclerotic heart disease of native coronary artery without angina pectoris; N32.81 Overactive bladder; E55.9 Vitamin D deficiency, unspecified; H35.00 Unspecified background retinopathy; E87.5 Hyperkalemia; I45.10 Unspecified right bundle-branch block; E11.319 Type 2 diabetes mellitus with unspecified diabetic retinopathy without macular edema; Z95.5 Presence of coronary angioplasty implant and graft; Z79.4 Long term (current) use of insulin; Z90.49 Acquired absence of other specified parts of digestive tract; Z86.73 Personal history of transient ischemic attack (TIA), and cerebral infarction without residual deficits; I25.2 Old myocardial infarction; Z90.710 Acquired absence of both cervix and uterus; Z98.49 Cataract extraction status, unspecified eye; Z82.49 Family history of ischemic heart disease and other diseases of the circulatory system; Z83.3 Family history of diabetes mellitus; Z80.1 Family history of malignant neoplasm of trachea, bronchus and lung; Z80.0 Family history of malignant neoplasm of digestive organs; Z79.1 Long term (current) use of non-steroidal anti-inflammatories (NSAID); Z79.82 Long term (current) use of aspirin; Z79.899 Other long term (current) drug therapy; Z68.25 Body mass index [BMI] 25.0-25.9, adult

== ENCOUNTER → 2017-01-15 | Outpatient (CLI) | payer OTHER, MEDICAID ==
[2017-01-15] VITALS (11 sets, daily range): BP systolic 116–146; BP diastolic 40–87
[~2017-01-15] MED LIST changes: +DULCOLAX10 M1 R; +IMDUR SA60 M1 PO; +Insulin Lispro, Reco SC; +LEVEMIR100 UNIT/1 SC; +LEVOFLOXACIN500 MG PO; +MOM30 M1 PO
[2017-01-15 11:05] LABS: HEMATOCRIT 21.8 % (37.0-47.0)
--- NOTE | 2017-01-15 15:33 | NUR ---
REPORT CALLED TO 5 E ROMY DENNIS TRANSFERRED TO [facility] FOR REMAINER OF TRANSFUSION. VSS MEDIPORT SITE CLEAR. DENIES C/O. UP TO BR WITH RN AND RUPAL WELL.
--- NOTE | 2017-01-15 15:45 | NUR ---
PT ARRIVED TO FLOOR VIA OR, 2UNIT OF PRBC TRANSFUSING AT 200CC/HR, PT TOLERATING WELL, NO COMPLAINTS AT THIS TIME. WILL CONTINUE TO MONITOR.
--- NOTE | 2017-01-15 17:19 | NUR ---
TRANSFUSION COMPLETE PT TOLERATED WELL NO ADVERSE REACTIONS NOTED
== END | disposition home or self-care (01) ==
LOC: TRNFUSION 08:49
PROVIDERS: Internal Medicine Hematology & Oncology
DX: D46.C Myelodysplastic syndrome with isolated del(5q) chromosomal abnormality (principal); D53.9 Nutritional anemia, unspecified; I12.9 Hypertensive chronic kidney disease with stage 1 through stage 4 chronic kidney disease, or unspecified chronic kidney disease; N18.3 Chronic kidney disease, stage 3 (moderate); E11.22 Type 2 diabetes mellitus with diabetic chronic kidney disease; G45.9 Transient cerebral ischemic attack, unspecified; I25.2 Old myocardial infarction; E03.9 Hypothyroidism, unspecified; E11.40 Type 2 diabetes mellitus with diabetic neuropathy, unspecified; E78.5 Hyperlipidemia, unspecified; F33.9 Major depressive disorder, recurrent, unspecified; I25.10 Atherosclerotic heart disease of native coronary artery without angina pectoris; K21.9 Gastro-esophageal reflux disease without esophagitis

== ENCOUNTER 2017-01-23 17:14 | Emergency (ER) | payer OTHER, MEDICAID ==
[~2017-01-23] VITALS: Wt 67.1 kg
[2017-01-23 17:57] LABS: HEMATOCRIT 28.2 % (37.0-47.0); HEMOGLOBIN 9.4 g/dl (12.0-16.0); MEAN CELL VOLUME 85.2 fl (81.0-99.0); MEAN CORPUSCULAR HGB 28.4 pg (27.0-31.0); MEAN CORPUSCULAR HGB CONC 33.3 g/dl (33.0-37.0); RED BLOOD COUNT 3.31 10*6/uL (4.10-5.10); RED CELL DISTRI WIDTH 16.5 % (0-14.5); WHITE BLOOD COUNT 4.3 10*3/uL (4.8-10.8)
[2017-01-23 18:00] LABS: PLATELET COUNT AUTOMATED 12 10*3/uL (130-400)
[2017-01-23 18:03] LABS: ACT PARTIAL THROMBO TIME 22.7 SECONDS (20.8-31.5)
[2017-01-23 18:12] LABS: ALBUMIN 2.5 gm/dl (3.1-4.5); CREATININE 1.47 mg/dL (0.55-1.02); POTASSIUM 4.6 mmol/L (3.5-5.1); TOTAL PROTEIN 5.7 gm/dL (6.4-8.2)
[2017-01-23 18:22] LABS: ATYPICAL LYMPHS 8 % (0-0); TOTAL CELLS COUNTED 100 #CELLS
[2017-01-23 18:23] LABS: BURR CELLS FEW; PLATELET SUFFICIENCY LOW (NORMAL)
[2017-01-23 18:24] LABS: TARGET CELLS FEW
[2017-01-23 21:45] VITALS: BP 157/63
== END 2017-01-23 21:57 | disposition home or self-care (01) ==
LOC: ED 17:14
PROVIDERS: Emergency Medicine
DX: D61.811 Other drug-induced pancytopenia (principal); T45.1X5A Adverse effect of antineoplastic and immunosuppressive drugs, initial encounter; C94.6 Myelodysplastic disease, not elsewhere classified; D69.6 Thrombocytopenia, unspecified; I12.9 Hypertensive chronic kidney disease with stage 1 through stage 4 chronic kidney disease, or unspecified chronic kidney disease; E11.22 Type 2 diabetes mellitus with diabetic chronic kidney disease; N18.3 Chronic kidney disease, stage 3 (moderate); E11.65 Type 2 diabetes mellitus with hyperglycemia; E03.9 Hypothyroidism, unspecified; E78.5 Hyperlipidemia, unspecified; K21.9 Gastro-esophageal reflux disease without esophagitis; I25.10 Atherosclerotic heart disease of native coronary artery without angina pectoris; I25.2 Old myocardial infarction; Z90.49 Acquired absence of other specified parts of digestive tract; Z90.710 Acquired absence of both cervix and uterus; Z95.5 Presence of coronary angioplasty implant and graft; Z86.73 Personal history of transient ischemic attack (TIA), and cerebral infarction without residual deficits; Z79.899 Other long term (current) drug therapy; Z79.82 Long term (current) use of aspirin; Z79.4 Long term (current) use of insulin; Y92.9 Unspecified place or not applicable

== ENCOUNTER → 2017-01-30 | Outpatient (CLI) | payer OTHER, MEDICAID ==
[~2017-01-30] MED LIST changes: +FLEET ENEMA 13133 ML R; +HYDROCORTISONE30 G1 T
[2017-01-30 10:00] VITALS: BP 138/41
[2017-01-30 10:36] LABS: HEMATOCRIT 25.8 % (37.0-47.0); HEMOGLOBIN 8.5 g/dl (12.0-16.0); MEAN CELL VOLUME 85.4 fl (81.0-99.0); MEAN CORPUSCULAR HGB 28.1 pg (27.0-31.0); MEAN CORPUSCULAR HGB CONC 32.9 g/dl (33.0-37.0); RED BLOOD COUNT 3.02 10*6/uL (4.10-5.10); RED CELL DISTRI WIDTH 16.6 % (0-14.5); WHITE BLOOD COUNT 4.1 10*3/uL (4.8-10.8)
[2017-01-30 10:58] LABS: ATYPICAL LYMPHS 3 % (0-0); TOTAL CELLS COUNTED 100 #CELLS
[2017-01-30 10:59] LABS: PLATELET SUFFICIENCY LOW (NORMAL)
[2017-01-30 11:00] LABS: PLATELET COUNT AUTOMATED 27 10*3/uL (130-400)
== END ==
LOC: TRNFUSION 02:34
PROVIDERS: Internal Medicine Hematology & Oncology
DX: D46.C Myelodysplastic syndrome with isolated del(5q) chromosomal abnormality (principal)

== ENCOUNTER 2017-02-11 16:50 | Inpatient (IN) | payer OTHER, MEDICAID ==
[~2017-02-11] VITALS: Ht 157.4 cm; Wt 65.9 kg
[2017-02-11] VITALS (7 sets, daily range): BP systolic 130–164; BP diastolic 40–52
[2017-02-11 17:37] LABS: HEMATOCRIT 19.2 % (37.0-47.0); MEAN CELL VOLUME 86.1 fl (81.0-99.0); MEAN CORPUSCULAR HGB 28.3 pg (27.0-31.0); MEAN CORPUSCULAR HGB CONC 32.8 g/dl (33.0-37.0); MEAN PLATELET VOLUME 10.5 fl (9.6-12.3); RED BLOOD COUNT 2.23 10*6/uL (4.10-5.10); RED CELL DISTRI WIDTH 16.2 % (0-14.5); WHITE BLOOD COUNT 2.4 10*3/uL (4.8-10.8)
[2017-02-11 17:53] LABS: ALBUMIN 2.7 gm/dl (3.1-4.5); CREATININE 1.52 mg/dL (0.55-1.02); POTASSIUM 4.8 mmol/L (3.5-5.1); TOTAL PROTEIN 6.1 gm/dL (6.4-8.2)
[2017-02-11 17:55] LABS: ACT PARTIAL THROMBO TIME 21.3 SECONDS (20.8-31.5)
[2017-02-11 18:08] LABS: BASOPHILS 2 % (0-1); TOTAL CELLS COUNTED 100 #CELLS
[2017-02-11 18:09] LABS: OVALOCYTES FEW; PLATELET SUFFICIENCY LOW (NORMAL)
[2017-02-11 18:10] LABS: HEMOGLOBIN 6.3 g/dl (12.0-16.0)
[2017-02-11 18:12] LABS: PLATELET COUNT AUTOMATED 12 10*3/uL (130-400)
[2017-02-11 20:14] LABS: BILIRUBIN NEGATIVE (NEGATIVE); BLOOD TRACE-LYSED (NEGATIVE); CLARITY CLEAR (CLEAR); COLOR YELLOW (YELLOW); GLUCOSE TRACE (NEGATIVE); KETONE NEGATIVE (NEGATIVE); LEUKO ESTERASE NEGATIVE (NEGATIVE); NITRITE NEGATIVE (NEGATIVE); SPECIFIC GRAVITY 1.015 (1.005-1.030); UROBILINOGEN 0.2 E.U./dl (0.2-1.0)
[2017-02-11 20:24] LABS: BACTERIA 2+
[2017-02-11] MEDS ORDERED: ZOFRAN4 MG PO (20:35)
[2017-02-12] VITALS (7 sets, daily range): BP systolic 118–178; BP diastolic 40–68
[2017-02-12 06:24] LABS: HEMATOCRIT 22.1 % (37.0-47.0); HEMOGLOBIN 7.3 g/dl (12.0-16.0); MEAN CELL VOLUME 84.4 fl (81.0-99.0); MEAN CORPUSCULAR HGB 27.9 pg (27.0-31.0); MEAN PLATELET VOLUME 10.1 fl (9.6-12.3); RED BLOOD COUNT 2.62 10*6/uL (4.10-5.10); RED CELL DISTRI WIDTH 15.7 % (0-14.5); WHITE BLOOD COUNT 2.2 10*3/uL (4.8-10.8)
[2017-02-12 06:47] LABS: PLATELET COUNT AUTOMATED 63 10*3/uL (130-400)
[2017-02-12 06:49] LABS: ALBUMIN 2.7 gm/dl (3.1-4.5); POTASSIUM 4.9 mmol/L (3.5-5.1)
[2017-02-12 07:00] LABS: CREATININE 1.27 mg/dL (0.55-1.02); PHOSPHOROUS 3.6 mg/dL (2.5-4.9); THYROID STIM HORMONE (HS) 0.967 uIU/ml (0.358-4.75); TOTAL PROTEIN 5.6 gm/dL (6.4-8.2)
[2017-02-12 07:12] LABS: ATYPICAL LYMPHS 1 % (0-0); BASOPHILS 1 % (0-1); TOTAL CELLS COUNTED 100 #CELLS
[2017-02-12 07:13] LABS: PLATELET SUFFICIENCY LOW (NORMAL); POLYCHROMASIA SLIGHT
[2017-02-12 09:46] LABS: VITAMIN D, 25-HYDROXY 44.4 ng/mL (30-100)
[2017-02-13] VITALS: BP 144/38
[2017-02-13 06:28] LABS: MEAN CELL VOLUME 84.3 fl (81.0-99.0); MEAN CORPUSCULAR HGB 28.1 pg (27.0-31.0); MEAN CORPUSCULAR HGB CONC 33.3 g/dl (33.0-37.0); MEAN PLATELET VOLUME 10.8 fl (9.6-12.3); PLATELET COUNT AUTOMATED 50 10*3/uL (130-400); RED BLOOD COUNT 2.49 10*6/uL (4.10-5.10); RED CELL DISTRI WIDTH 15.9 % (0-14.5); WHITE BLOOD COUNT 2.5 10*3/uL (4.8-10.8)
[2017-02-13 07:17] LABS: ALBUMIN 2.5 gm/dl (3.1-4.5); BASOPHILS 2 % (0-1); CREATININE 1.28 mg/dL (0.55-1.02); PHOSPHOROUS 3.4 mg/dL (2.5-4.9); PLATELET SUFFICIENCY LOW (NORMAL); POLYCHROMASIA SLIGHT; POTASSIUM 5.1 mmol/L (3.5-5.1); TOTAL CELLS COUNTED 100 #CELLS; TOTAL PROTEIN 5.7 gm/dL (6.4-8.2)
[2017-02-13 08:00] VITALS: BP 138/45
[2017-02-13 12:00] VITALS: BP 156/49
[2017-02-13 14:30] VITALS: BP 147/48
[2017-02-13 14:45] VITALS: BP 146/49
[2017-02-13 15:30] VITALS: BP 146/48
[2017-02-13 17:32] LABS: HEMATOCRIT 24.5 % (37.0-47.0); HEMOGLOBIN 8.2 g/dl (12.0-16.0)
== END 2017-02-13 18:56 | disposition other institution (70) | DRG 808 ==
LOC: ED 16:50 → 4E 18:33 → EDHOLD 18:33 → 4E 18:46
PROVIDERS: Internal Medicine Nephrology; Physician Assistant; Student in an Organized Health Care Education/Training Program
DX: D61.810 Antineoplastic chemotherapy induced pancytopenia (principal); E43 Unspecified severe protein-calorie malnutrition; D69.59 Other secondary thrombocytopenia; E11.65 Type 2 diabetes mellitus with hyperglycemia; N18.3 Chronic kidney disease, stage 3 (moderate); D63.8 Anemia in other chronic diseases classified elsewhere; E11.319 Type 2 diabetes mellitus with unspecified diabetic retinopathy without macular edema; D46.C Myelodysplastic syndrome with isolated del(5q) chromosomal abnormality; K21.9 Gastro-esophageal reflux disease without esophagitis; E78.5 Hyperlipidemia, unspecified; E03.9 Hypothyroidism, unspecified; I25.10 Atherosclerotic heart disease of native coronary artery without angina pectoris; F32.9 Major depressive disorder, single episode, unspecified; T45.1X5A Adverse effect of antineoplastic and immunosuppressive drugs, initial encounter; I12.9 Hypertensive chronic kidney disease with stage 1 through stage 4 chronic kidney disease, or unspecified chronic kidney disease; E55.9 Vitamin D deficiency, unspecified; N32.81 Overactive bladder; Z79.4 Long term (current) use of insulin; Y92.89 Other specified places as the place of occurrence of the external cause; Z90.49 Acquired absence of other specified parts of digestive tract; Z98.49 Cataract extraction status, unspecified eye; Z90.710 Acquired absence of both cervix and uterus; Z95.5 Presence of coronary angioplasty implant and graft; Z80.49 Family history of malignant neoplasm of other genital organs; Z80.0 Family history of malignant neoplasm of digestive organs; Z80.1 Family history of malignant neoplasm of trachea, bronchus and lung; Z80.8 Family history of malignant neoplasm of other organs or systems; Z84.1 Family history of disorders of kidney and ureter; Z83.3 Family history of diabetes mellitus; Z82.49 Family history of ischemic heart disease and other diseases of the circulatory system; Z86.73 Personal history of transient ischemic attack (TIA), and cerebral infarction without residual deficits; I25.2 Old myocardial infarction; Z79.899 Other long term (current) drug therapy; Z68.26 Body mass index [BMI] 26.0-26.9, adult

== ENCOUNTER 2017-02-18 14:58 | Inpatient (IN) | payer OTHER, MEDICAID ==
[~2017-02-18] VITALS: Ht 157.4 cm; Wt 65.8 kg
--- NOTE | ~2017-02-18 | PR ---
[place], [place] PROGRESS NOTE NAME: MARIA DEL CARMEN PLATA [facility] #: [id number] UNIT #: [id number] ROOM: 510 DOCTOR: DEEPALI LINDA MD BIRTHDATE: [birth year] DOS: 02/20/2017 SUBJECTIVE: The patient is doing much better. She had been having some diarrhea, for which she had been worked up . REVIEW OF SYSTEMS: HEENT: No trouble swallowing. No double vision. No loss of vision. No pain. ENT AND RESPIRATORY: No wheeze. No change in voice. No cough. No shortness of breath. No coughing up blood. No epistaxis. CARDIOLOGIC: No chest pain. No dizziness. No irregular heartbeat. No leg edema. No palpitations. No shortness of breath. HEMATOLOGIC AND LYMPH: No past transfusion. No fatigue. No loss of appetite. No easy bruising. GASTROENEROLOGIC: No change in bowel habits. No vomiting blood. No abdominal cramping. No nausea. No vomiting. No constipation. No blood in stool. FEMALE REPRODUCTIVE: No dyspareunia. No pelvic pain. MUSCULOSKELETAL: No back pain. No muscle pain or weakness. No tingling/numbness. UROLOGIC: No pain with urination. No difficulty urinating. No frequent urination. NEUROLOGIC: No burning pain in feet. No trouble with coordination. No loss of consciousness. No headache. No tingling/numbness. No memory loss. PHYSICAL EXAMINATION: GENERAL: She is a pleasant woman in no apparent distress. VITAL SIGNS: Blood pressure 166/61, respirations 18, pulse 77, temperature 100. HEENT: Normocephalic, atraumatic NECK AND THYROID: Supple. No JVD, thyromegaly, or lymphadenopathy. HEART: Normal S1, S2. Regular rate and rhythm. LUNGS: Clear to auscultation and percussion. ABDOMEN: Soft. Nontender, nondistended. Bowel sounds present. EXTREMITIES: Normal ROM. No clubbing. No edema. LABORATORY DATA: White count of 3.9, hemoglobin 9.9, hematocrit 28.7, platelet count of 60,000. ASSESSMENT: 1. Myelodysplastic syndrome. 2. Pancytopenia secondary to #1. 3. Status post multiple units of packed red blood cells and platelets. PLAN: Overall, she is doing better. We will just keep a close watch at this time. Medically, she is being treated. Followup as an outpatient discussed. [place], [place] PROGRESS NOTE NAME: MARIA DEL CARMEN PLATA UNIT #: [id number] ROOM: [facility] DOCTOR: DEEPALI LINDA MD BIRTHDATE: [birth year] DEEPALI LINDA MD CM:PNTRANS [phone] DEEPALI LINDA MD 02/21/17 0148 interface
--- NOTE | ~2017-02-18 | PR ---
[place], [place] PROGRESS NOTE NAME: MARIA DEL CARMEN PLATA [facility] #: [id number] UNIT #: [id number] ROOM: 510 DOCTOR: DEEPALI LINDA MD BIRTHDATE: [birth year] DOS: 02/25/2017 SUBJECTIVE: The patient is doing much better, though she had a low grade fever for which she is being investigated. REVIEW OF SYSTEMS HEENT: No trouble swallowing. No double vision. No loss of vision. No pain. ENT AND RESPIRATORY: No wheeze. No change in voice. No cough. No shortness of breath. No coughing up blood. No epistaxis. CARDIOLOGIC: No chest pain. No dizziness. No irregular heartbeat. No leg edema. No palpitations. No shortness of breath. HEMATOLOGIC AND LYMPH: No past transfusion. No fatigue. No loss of appetite. No easy bruising. GASTROENTEROLOGIC: No change in bowel habits. No vomiting blood. No abdominal cramping. No nausea. No vomiting. No diarrhea. No constipation. No blood in stool. FEMALE REPRODUCTIVE: No dyspareunia. No pelvic pain. MUSCULOSKELETAL: No back pain. No muscle pain or weakness. No tingling/numbness. UROLOGIC: No pain with urination. No difficulty urinating. No frequent urination. NEUROLOGIC: No burning pain in feet. No trouble with coordination. No loss of consciousness. No headache. No tingling/numbness. No memory loss. PHYSICAL EXAMINATION: GENERAL: Pleasant woman, in no acute distress. VITAL SIGNS: Stable. Low-grade fever. HEENT: Normocephalic, atraumatic NECK AND THYROID: Supple. No JVD, thyromegaly, or lymphadenopathy. HEART: Normal S1, S2. Regular rate and rhythm. LUNGS: Clear to auscultation and percussion. ABDOMEN: Soft. Nontender, nondistended. Bowel sounds present. EXTREMITIES: Normal ROM. No clubbing. No edema. LABORATORY DATA: White count of 2.4, hemoglobin 9.0, hematocrit 26.2, platelet count 27,000 with ANC of 800. ASSESSMENT: 1. Fever of unknown etiology. 2. 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 3. History of diverticulitis. 4. Chronic kidney disease. PLAN: The patient is being worked up for her fever, hemoglobin, hematocrit and platelets are stable. They start dropping, then intervention. I had a detailed discussion with the patient about it, seemed to understand it. [place], [place] PROGRESS NOTE NAME: MARIA DEL CARMEN PLATA UNIT #: [id number] ROOM: [facility] DOCTOR: DEEPALI LINDA MD BIRTHDATE: [birth year] DEEPALI LINDA MD CM:PNTRANS [id number] DEEPALI LINDA MD 02/25/17 1451 interface
--- NOTE | ~2017-02-18 | CON ---
[place], [place] REPORT OF CONSULTATION NAME: MARIA DEL CARMEN PLATA [facility] #: [id number] UNIT #: [id number] ROOM: 510 DOCTOR: DEEPALI LINDA MD BIRTHDATE: [birth year] DOS: 02/19/2017 HISTORY OF PRESENT ILLNESS: A 76-year-old woman with a history of myelodysplastic syndrome. The lab called me that her platelets are around 13,000 and low hemoglobin and hematocrit. Subsequently, it was advised to the [facility] to give her 2 units of packed RBC as well as platelets. She ended up in the Emergency Room and was admitted and consulted for further evaluation and management. PAST MEDICAL HISTORY: Significant for myelodysplastic syndrome, undergoing chemotherapy; coronary artery disease; cerebrovascular accident; depression; GERD; history of myocardial infarction; hypertension; history of TIA; hyperlipidemia; hypothyroidism; neuropathy; OAB; right bundle-branch block; retinopathy; history of stage 3 chronic kidney disease; stenosis of the left internal carotid artery and type 2 diabetes. PAST SURGICAL HISTORY: Appendectomy, cataract surgery, hysterectomy, status post coronary artery stent placement. SOCIAL HISTORY: No smoking, drinking, or drug abuse. FAMILY HISTORY: Father in an accident at a mill, at age 22. Mother had a gynae cancer, also hypertension and diabetes, at age 62. Brother had coronary artery disease and diabetes, at age 52. Brother had esophageal cancer, at age 40. Brother had brain/lung cancer, at age 58. Sister had diabetes and kidney failure, at age 62. ALLERGIES: No allergies. MEDICATIONS: Acetaminophen, Lipitor, Dulcolax, vitamin D, hydrocortisone, Levemir, Imdur, Synthroid, Zofran, Protonix, Evista and Zoloft. REVIEW OF SYSTEMS: CONSTITUTIONAL: No chills. No fatigue. No fever. No loss of appetite. No night sweats. No weakness. No weight loss. HEENT: No trouble swallowing. No loss of smell. No loss of hearing. No double vision. No pain. No discharge. ENT AND RESPIRATORY: No wheeze. No sore throat. No change in voice. No hearing loss. No nose bleed. No cough. No trouble breathing through nose. No shortness of breath. No coughing up blood. No epistaxis. CARDIOVASCULAR: No chest pain. No dizziness. No irregular heartbeat. No leg edema. No pain in legs while walking. No palpitations. No shortness of breath. DERMATOLOGIC: No acne. No hives. No laceration. No mole. No rash. ENDOCRINE: No cold intolerance. No diabetes. No fatigue. No hot flashes. No polydipsia. No polyuria. No urinating frequently. No weight loss. HEMATOLOGIC AND LYMPH: No fatigue. No easy bruising. GASTROENTEROLOGIC: No change in bowel habits. No indigestion. No frequent bloating. No vomiting blood. No abdominal cramping. No nausea. No heartburn. No vomiting. No abdominal pain. No dysphagia. No diarrhea. No constipation. [place], [place] REPORT OF CONSULTATION NAME: MARIA DEL CARMEN PLATA UNIT #: [id number] ROOM: [facility] DOCTOR: DEEPALI LINDA MD BIRTHDATE: [birth year] No blood in stool. FEMALE REPRODUCTIVE: No vaginal itching. No difficulty urinating. No heavy periods. No dyspareunia. No sexually active. No dysmenorrhea. No pelvic pain. No breast pain. No nipple discharge. No abnormal vaginal discharge. No hot flashes. MUSCULOSKELETAL: No back pain. No muscle pain or weakness. No neck pain. No tingling/numbness. No swelling/bruising. No osteoporosis treatment. OPTHALMOLOGIC: No double vision. No diminished vision. No loss of vision. UROLOGIC: No dysuria. No frequent nighttime urination. No irregular periods. No pain with urination. No difficulty urinating. No blood in urine. No frequent urination. No urinary incontinence. NEUROLOGIC: No loss of sensation in specific body area. No vertigo. No burning pain in feet. No trouble with balance. No trouble with coordination. No loss of consciousness. No loss of feeling/power. No confusion. No headache. No tingling/numbness. PSYCHOLOGIC: No tinnitus. No headaches. No shortness of breath. No weight decrease. No nausea. No vomiting. No abdominal discomfort. No constipation. No diarrhea. No depression. No anxiety. PHYSICAL EXAMINATION: GENERAL: Pleasant woman, in no acute distress. VITAL SIGNS: Stable. She is afebrile. HEENT: Oral mucosa appears intact. The external ears are normal in appearance. Nares are patent without lesions, exudates, erythema, or inflammation. Tongue is symmetrical. Uvula is midline. NECK AND THYROID: Neck supple without palpable masses. Trachea is midline. No thyromegaly. No carotid bruit or JVD. BREASTS: Normal. Nipples unremarkable. No drainage. No lumps felt on either side. HEART: Normal S1, S2, without significant murmur, rub, or gallop. LUNGS: Clear to auscultation and percussion with good air entry bilaterally. The patient is breathing easily without the use of accessory muscles. Diaphragmatic excursions are intact. ABDOMEN: No costovertebral angle tenderness. Soft. No organomegaly or masses. Nontender. No hernias present. Liver and spleen are not palpable. LYMPHATIC: No adenopathy noted in the cervical, supraclavicular, axillary, or inguinal regions. NEUROLGIC: Nonfocal. Oriented to person, place, and time. MENTAL STATUS: Appropriate for mood and affect. PERIPHERAL PULSES: No varicosities. Femoral and pedal pulses are palpable. EXTREMITIES: Without cyanosis, clubbing, or edema. No gross anomalies. LABORATORY DATA: White count of 3.8, hemoglobin of 11.5, hematocrit 33.1, platelet count of 97,000. ASSESSMENT: 1. Myelodysplastic syndrome. 2. Pancytopenia secondary to #1. 3. Hypothyroidism. 4. Gastroesophageal reflux disease. [place], [place] REPORT OF CONSULTATION NAME: MARIA DEL CARMEN PLATA [facility] #: [id number] UNIT #: [id number] ROOM: [facility] DOCTOR: DEEPALI LINDA MD BIRTHDATE: [birth year] PLAN: She got 2 units of packed RBC as well as platelets. Overall, she is doing better. Her counts have improved. From my standpoint of view, the patient can go home. The patient will be starting chemotherapy next week. I had a detailed discussion with the patient about it, seemed to understand it. Ample time was given to the patient to ask me questions. We will follow. Thanks for consulting and letting participate in the care of this interesting patient. DEEPALI LINDA MD CM:CONSTR:REPORT OF CONSULTATION 0946 02/24/17 1119 interface
--- NOTE | ~2017-02-18 | PR ---
[place], [place] PROGRESS NOTE NAME: MARIA DEL CARMEN PLATA [facility] #: [id number] UNIT #: [id number] ROOM: 510 DOCTOR: DEEPALI LINDA MD BIRTHDATE: [birth year] DOS: 02/26/2017 SUBJECTIVE: The patient is doing better. She did not have any fever for the last 24 hours. She is awake, alert and responsive. She had a CT scan of the abdomen and pelvis done today, results are pending. REVIEW OF SYSTEMS HEENT: No trouble swallowing. No double vision. No loss of vision. No pain. ENT AND RESPIRATORY: No wheeze. No change in voice. No cough. No shortness of breath. No coughing up blood. No epistaxis. CARDIOLOGIC: No chest pain. No dizziness. No irregular heartbeat. No leg edema. No palpitations. No shortness of breath. HEMATOLOGIC AND LYMPH: No past transfusion. No fatigue. No loss of appetite. No easy bruising. GASTROENTEROLOGIC: No change in bowel habits. No vomiting blood. No abdominal cramping. No nausea. No vomiting. No diarrhea. No constipation. No blood in stool. FEMALE REPRODUCTIVE: No dyspareunia. No pelvic pain. MUSCULOSKELETAL: No back pain. No muscle pain or weakness. No tingling/numbness. UROLOGIC: No pain with urination. No difficulty urinating. No frequent urination. NEUROLOGIC: No burning pain in feet. No trouble with coordination. No loss of consciousness. No headache. No tingling/numbness. No memory loss. PHYSICAL EXAMINATION GENERAL: She is a pleasant woman in no apparent distress. VITAL SIGNS: Stable. She is afebrile. HEENT: Normocephalic, atraumatic NECK AND THYROID: Supple. No JVD, thyromegaly, or lymphadenopathy. HEART: Normal S1, S2. Regular rate and rhythm. LUNGS: Clear to auscultation and percussion. ABDOMEN: Soft. Nontender, nondistended. Bowel sounds present. EXTREMITIES: Normal ROM. No clubbing. No edema. LABORATORY DATA: White count of 3.0, hemoglobin 9.3, hematocrit 27.7, platelet count 43,000 with ANC of 500, glucose of 60, EGFR is 46. Sodium 141, potassium 3.5, chloride 104, bicarbonate 29, calcium 8.6. ASSESSMENT: 1. 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 2. Myelodysplastic syndrome -5q. 3. Hypothyroidism. 4. Gastroesophageal reflux disease. 5. Chronic kidney disease stage 3. PLAN: The patient got a CT of the abdomen and pelvis. We will wait for that. In the meantime, hemoglobin and hematocrit are stable, so is all the platelets. No bleeding or bruising at this time. Her source of fever is being investigated. We will keep a close watch at this time. If any counts drop, [place], [place] PROGRESS NOTE NAME: MARIA DEL CARMEN PLATA UNIT #: [id number] ROOM: [facility] DOCTOR: DEEPALI LINDA MD BIRTHDATE: [birth year] then further intervention discussed. DEEPALI LINDA MD CM:LUIS 1430 [id number] DEEPALI LINDA MD 02/26/17 1451 interface
--- NOTE | ~2017-02-18 | PR ---
[place], [place] PROGRESS NOTE NAME: MARIA DEL CARMEN PLATA [facility] #: [id number] UNIT #: [id number] ROOM: 510 DOCTOR: DEEPALI LINDA MD BIRTHDATE: [birth year] DOS: 02/23/2017 SUBJECTIVE: The patient is doing much better. She is alert, awake, and responsive. REVIEW OF SYSTEMS: HEENT: No trouble swallowing. No double vision. No loss of vision. No pain. ENT AND RESPIRATORY: No wheeze. No change in voice. No cough. No shortness of breath. No coughing up blood. No epistaxis. CARDIOLOGIC: No chest pain. No dizziness. No irregular heartbeat. No leg edema. No palpitations. No shortness of breath. HEMATOLOGIC AND LYMPH: No past transfusion. No fatigue. No loss of appetite. No easy bruising. GASTROENEROLOGIC: No change in bowel habits. No vomiting blood. No abdominal cramping. No nausea. No vomiting. No diarrhea. No constipation. No blood in stool. FEMALE REPRODUCTIVE: No dyspareunia. No pelvic pain. MUSCULOSKELETAL: No back pain. No muscle pain or weakness. No tingling/numbness. UROLOGIC: No pain with urination. No difficulty urinating. No frequent urination. NEUROLOGIC: No burning pain in feet. No trouble with coordination. No loss of consciousness. No headache. No tingling/numbness. No memory loss. PHYSICAL EXAMINATION: GENERAL: She is a pleasant woman, in no apparent distress. VITAL SIGNS: Stable. She is afebrile. HEENT: Normocephalic, atraumatic NECK AND THYROID: Supple. No JVD, thyromegaly, or lymphadenopathy. HEART: Normal S1, S2. Regular rate and rhythm. LUNGS: Clear to auscultation and percussion. ABDOMEN: Soft. Nontender, nondistended. Bowel sounds present. EXTREMITIES: Normal ROM. No clubbing. No edema. LABORATORY DATA: White count of 5.2, hemoglobin of 10.5, hematocrit 30.4, and platelet count of 30,000. Chemistries: EGFR is 45. Sodium 138, potassium 3.4, chloride 104, bicarbonate 25, and calcium 8.4. ASSESSMENT: 1. Myelodysplastic syndrome. 2. Status post multiple units of packed red blood cells. 3. Status post platelet transfusion. 4. Gastroesophageal reflux disease. PLAN: We will wait for her overall condition to improve before starting the chemotherapy and was advised if any fever, chills, weakness to call us. Otherwise, close followup for now. Discussed with the patient in detail. [place], [place] PROGRESS NOTE NAME: MARIA DEL CARMEN PLATA UNIT #: [id number] ROOM: [facility] DOCTOR: DEEPALI LINDA MD BIRTHDATE: [birth year] DEEPALI LINDA MD CM:LUIS [id number] DEEPALI LINDA MD 02/24/17 1133 interface
--- NOTE | ~2017-02-18 | PR ---
[place], [place] PROGRESS NOTE NAME: MARIA DEL CARMEN PLATA [facility] #: [id number] UNIT #: [id number] ROOM: 510 DOCTOR: DEEPALI LINDA MD BIRTHDATE: [birth year] DOS: 02/24/2017 SUBJECTIVE: The patient is doing better, though she had fever. She is awake, alert and responsive. REVIEW OF SYSTEMS: HEENT: No trouble swallowing. No double vision. No loss of vision. No pain. ENT AND RESPIRATORY: No wheeze. No change in voice. No cough. No shortness of breath. No coughing up blood. No epistaxis. CARDIOLOGIC: No chest pain. No dizziness. No irregular heartbeat. No leg edema. No palpitations. No shortness of breath. HEMATOLOGIC AND LYMPH: No past transfusion. No fatigue. No loss of appetite. No easy bruising. GASTROENTEROLOGIC: No change in bowel habits. No vomiting blood. No abdominal cramping. No nausea. No vomiting. No diarrhea. No constipation. No blood in stool. FEMALE REPRODUCTIVE: No dyspareunia. No pelvic pain. MUSCULOSKELETAL: No back pain. No muscle pain or weakness. No tingling/numbness. UROLOGIC: No pain with urination. No difficulty urinating. No frequent urination. NEUROLOGIC: No burning pain in feet. No trouble with coordination. No loss of consciousness. No headache. No tingling/numbness. No memory loss. PHYSICAL EXAMINATION: GENERAL: Pleasant woman in no apparent distress. VITAL SIGNS: Stable. She is afebrile. HEENT: Normocephalic, atraumatic. NECK AND THYROID: Supple. No JVD, thyromegaly, or lymphadenopathy. HEART: Normal S1, S2. Regular rate and rhythm. LUNGS: Clear to auscultation and percussion. ABDOMEN: Soft. Nontender, nondistended. Bowel sounds present. EXTREMITIES: Normal ROM. No clubbing. No edema. LABORATORY DATA: White count of 2.7, hemoglobin 9.0, hematocrit 26.0, platelet count 25,000. ANC of 1000. Chemistries EGFR is 46. Sodium 138, potassium 3.6, chloride 103, bicarbonate 27, calcium 8.3. ASSESSMENT: 1. 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 2. Myelodysplastic syndrome -5q. 3. Gastroesophageal reflux disease. 4. History of clotting. PLAN: The patient had an episode of fever and blood cultures were done as well as ID consulted. Her hemoglobin and hematocrit improved. We will keep a close watch on her at this time. Platelet count 72547, but the patient is not bleeding or bruising. If anything changes, then further intervention. In the meantime wait for the blood cultures to come back. Discussed with the patient in detail. [place], [place] PROGRESS NOTE NAME: MARIA DEL CARMEN PLATA UNIT #: [id number] ROOM: [facility] DOCTOR: DEEPALI LINDA MD BIRTHDATE: [birth year] DEEPALI LINDA MD CM:PNTRANS 0925 [id number] DEEPALI LINDA MD 02/24/17 1010 interface
[~2017-02-18 14:58] MED LIST changes: +ZOFRAN4 MG PO
[2017-02-18 15:23] VITALS: BP 140/50
[2017-02-18 15:49] LABS: HEMATOCRIT 23.6 % (37.0-47.0); MEAN CELL VOLUME 84.3 fl (81.0-99.0); MEAN CORPUSCULAR HGB 28.6 pg (27.0-31.0); MEAN CORPUSCULAR HGB CONC 33.9 g/dl (33.0-37.0); RED CELL DISTRI WIDTH 14.1 % (0-14.5); WHITE BLOOD COUNT 2.8 10*3/uL (4.8-10.8)
[2017-02-18 15:55] LABS: PLATELET COUNT AUTOMATED 15 10*3/uL (130-400)
[2017-02-18 16:04] LABS: ACT PARTIAL THROMBO TIME 21.6 SECONDS (20.8-31.5); ALBUMIN 2.7 gm/dl (3.1-4.5); CREATININE 1.42 mg/dL (0.55-1.02); POTASSIUM 4.4 mmol/L (3.5-5.1); TOTAL PROTEIN 6.2 gm/dL (6.4-8.2)
[2017-02-18 16:22] LABS: PLATELET SUFFICIENCY LOW (NORMAL); TOTAL CELLS COUNTED 100 #CELLS
[2017-02-18 16:50] VITALS: BP 158/51
[2017-02-18 18:19] VITALS: BP 157/52
[2017-02-18 19:14] VITALS: BP 160/51
[2017-02-18 20:27] LABS: BILIRUBIN NEGATIVE (NEGATIVE); BLOOD 1+ (NEGATIVE); CLARITY CLEAR (CLEAR); COLOR YELLOW (YELLOW); GLUCOSE 1+ (NEGATIVE); KETONE NEGATIVE (NEGATIVE); LEUKO ESTERASE NEGATIVE (NEGATIVE); NITRITE NEGATIVE (NEGATIVE); UROBILINOGEN 0.2 E.U./dl (0.2-1.0)
[2017-02-18 20:34] LABS: BACTERIA 2+
[2017-02-18 22:43] VITALS: BP 153/49
[2017-02-18 23:07] VITALS: BP 143/53
[2017-02-19] VITALS: BP 163/53
[2017-02-19 08:00] VITALS: BP 195/62
[2017-02-19 08:20] LABS: HEMATOCRIT 33.1 % (37.0-47.0); HEMOGLOBIN 11.5 g/dl (12.0-16.0); MEAN CELL VOLUME 84.7 fl (81.0-99.0); MEAN CORPUSCULAR HGB 29.4 pg (27.0-31.0); MEAN CORPUSCULAR HGB CONC 34.7 g/dl (33.0-37.0); MEAN PLATELET VOLUME 9.6 fl (9.6-12.3); PLATELET COUNT AUTOMATED 97 10*3/uL (130-400); RED BLOOD COUNT 3.91 10*6/uL (4.10-5.10); RED CELL DISTRI WIDTH 14.4 % (0-14.5); WHITE BLOOD COUNT 3.8 10*3/uL (4.8-10.8)
[2017-02-19 08:51] LABS: ALBUMIN 2.9 gm/dl (3.1-4.5); CREATININE 1.24 mg/dL (0.55-1.02); PHOSPHOROUS 3.3 mg/dL (2.5-4.9); POTASSIUM 4.3 mmol/L (3.5-5.1)
[2017-02-19 08:53] LABS: TOTAL PROTEIN 6.5 gm/dL (6.4-8.2)
[2017-02-19 09:18] LABS: ACANTHOCYTES FEW; ATYPICAL LYMPHS 4 % (0-0); PLATELET SUFFICIENCY LOW (NORMAL); TOTAL CELLS COUNTED 100 #CELLS
[2017-02-19 12:00] VITALS: BP 171/62
[2017-02-19 16:00] VITALS: BP 161/63
[2017-02-19 20:00] VITALS: BP 156/57
[2017-02-20] VITALS: BP 140/31; BP 140/58; BP 190/56
[2017-02-20 08:00] VITALS: BP 153/76
[2017-02-20 11:47] LABS: HEMATOCRIT 28.7 % (37.0-47.0); HEMOGLOBIN 9.9 g/dl (12.0-16.0); MEAN CELL VOLUME 86.2 fl (81.0-99.0); MEAN CORPUSCULAR HGB 29.7 pg (27.0-31.0); MEAN CORPUSCULAR HGB CONC 34.5 g/dl (33.0-37.0); MEAN PLATELET VOLUME 9.9 fl (9.6-12.3); PLATELET COUNT AUTOMATED 60 10*3/uL (130-400); RED BLOOD COUNT 3.33 10*6/uL (4.10-5.10); RED CELL DISTRI WIDTH 14.5 % (0-14.5); WHITE BLOOD COUNT 3.9 10*3/uL (4.8-10.8)
[2017-02-20 12:00] VITALS: BP 166/61
[2017-02-20 12:14] LABS: ATYPICAL LYMPHS 2 % (0-0); PLATELET SUFFICIENCY LOW (NORMAL); SCHISTOCYTES FEW; TOTAL CELLS COUNTED 100 #CELLS
[2017-02-20 12:22] LABS: ALBUMIN 2.5 gm/dl (3.1-4.5); CREATININE 1.27 mg/dL (0.55-1.02); POTASSIUM 4.2 mmol/L (3.5-5.1); TOTAL PROTEIN 5.7 gm/dL (6.4-8.2)
[2017-02-20 16:00] VITALS: BP 151/49
[2017-02-20 20:00] VITALS: BP 191/56
[2017-02-21] VITALS: BP 142/48; BP 142/58
[2017-02-21 08:00] VITALS: BP 156/49
[2017-02-21 11:45] LABS: HEMOGLOBIN 9.9 g/dl (12.0-16.0); RED CELL DISTRI WIDTH 14.6 % (0-14.5)
[2017-02-21 11:47] LABS: BASO % 0.3 % (0.0-1.0); EOS # 0.1 10*3/uL (0.0-0.4); EOS % 1.4 % (1.0-4.0); HEMATOCRIT 29.6 % (37.0-47.0); LYMPH # 0.8 10*3/uL (1.3-4.4); MEAN CELL VOLUME 88.1 fl (81.0-99.0); MEAN CORPUSCULAR HGB 29.5 pg (27.0-31.0); MEAN CORPUSCULAR HGB CONC 33.4 g/dl (33.0-37.0); MONO # 1.3 10*3/uL (0.1-1.0); MONO % 37.2 % (3.0-9.0); NEUT # 1.3 10*3/uL (2.3-7.9); NEUT % 35.5 % (47.0-73.0); RED BLOOD COUNT 3.36 10*6/uL (4.10-5.10); WHITE BLOOD COUNT 3.5 10*3/uL (4.8-10.8)
[2017-02-21 11:48] LABS: PLATELET COUNT AUTOMATED 49 10*3/uL (130-400)
[2017-02-21 11:53] LABS: CREATININE 1.26 mg/dL (0.55-1.02); POTASSIUM 4.3 mmol/L (3.5-5.1)
[2017-02-21 12:00] VITALS: BP 148/56
[2017-02-21 12:40] LABS: ATYPICAL LYMPHS 4 % (0-0); PLATELET SUFFICIENCY LOW (NORMAL); TOTAL CELLS COUNTED 100 #CELLS
[2017-02-21 12:41] LABS: BURR CELLS FEW
[2017-02-21 16:00] VITALS: BP 177/87
[2017-02-21 18:00] VITALS: BP 152/72
[2017-02-21 20:00] VITALS: BP 159/56
[2017-02-22] VITALS: BP 136/43
[2017-02-22 07:54] LABS: HEMATOCRIT 28.2 % (37.0-47.0); HEMOGLOBIN 9.6 g/dl (12.0-16.0); MEAN CELL VOLUME 86.8 fl (81.0-99.0); MEAN CORPUSCULAR HGB 29.5 pg (27.0-31.0); MEAN PLATELET VOLUME 11.1 fl (9.6-12.3); RED BLOOD COUNT 3.25 10*6/uL (4.10-5.10); RED CELL DISTRI WIDTH 14.6 % (0-14.5); WHITE BLOOD COUNT 2.6 10*3/uL (4.8-10.8)
[2017-02-22 08:00] VITALS: BP 158/53
[2017-02-22 08:02] LABS: PLATELET COUNT AUTOMATED 33 10*3/uL (130-400)
[2017-02-22 08:12] LABS: ALBUMIN 2.1 gm/dl (3.1-4.5); CREATININE 1.21 mg/dL (0.55-1.02); POTASSIUM 4.2 mmol/L (3.5-5.1); TOTAL PROTEIN 5.1 gm/dL (6.4-8.2)
[2017-02-22 08:59] LABS: BASOPHILS 1 % (0-1); PLATELET SUFFICIENCY LOW (NORMAL); TOTAL CELLS COUNTED 100 #CELLS
[2017-02-22 09:00] LABS: BURR CELLS MODERATE; SCHISTOCYTES FEW
[2017-02-22 12:00] VITALS: BP 170/61
[2017-02-22 16:00] VITALS: BP 172/59
[2017-02-22 20:00] VITALS: BP 190/70; BP 196/62
[2017-02-23] VITALS: BP 140/48
[2017-02-23 05:57] LABS: HEMATOCRIT 30.4 % (37.0-47.0); HEMOGLOBIN 10.5 g/dl (12.0-16.0); MEAN CELL VOLUME 85.2 fl (81.0-99.0); MEAN CORPUSCULAR HGB 29.4 pg (27.0-31.0); MEAN CORPUSCULAR HGB CONC 34.5 g/dl (33.0-37.0); MEAN PLATELET VOLUME 10.6 fl (9.6-12.3); PLATELET COUNT AUTOMATED 30 10*3/uL (130-400); RED BLOOD COUNT 3.57 10*6/uL (4.10-5.10); RED CELL DISTRI WIDTH 14.3 % (0-14.5); WHITE BLOOD COUNT 5.2 10*3/uL (4.8-10.8)
[2017-02-23 06:15] LABS: CREATININE 1.17 mg/dL (0.55-1.02); POTASSIUM 3.4 mmol/L (3.5-5.1)
[2017-02-23 07:09] LABS: ATYPICAL LYMPHS 1 % (0-0); BASOPHILS 2 % (0-1); TOTAL CELLS COUNTED 100 #CELLS
[2017-02-23 07:10] LABS: PLATELET SUFFICIENCY LOW (NORMAL)
[2017-02-23 08:00] VITALS: BP 176/47
[2017-02-23 12:00] VITALS: BP 155/49
[2017-02-23 16:00] VITALS: BP 152/74
[2017-02-23 20:00] VITALS: BP 158/72
[2017-02-24] VITALS: BP 150/48
[2017-02-24 07:57] LABS: MEAN CELL VOLUME 85.2 fl (81.0-99.0); MEAN CORPUSCULAR HGB 29.5 pg (27.0-31.0); MEAN CORPUSCULAR HGB CONC 34.6 g/dl (33.0-37.0); MEAN PLATELET VOLUME 12.1 fl (9.6-12.3); RED BLOOD COUNT 3.05 10*6/uL (4.10-5.10); RED CELL DISTRI WIDTH 14.6 % (0-14.5); WHITE BLOOD COUNT 2.7 10*3/uL (4.8-10.8)
[2017-02-24 08:00] VITALS: BP 175/52
[2017-02-24 08:01] LABS: CREATININE 1.15 mg/dL (0.55-1.02); POTASSIUM 3.6 mmol/L (3.5-5.1)
[2017-02-24 08:09] LABS: PLATELET COUNT AUTOMATED 25 10*3/uL (130-400)
[2017-02-24 08:26] LABS: TOTAL CELLS COUNTED 100 #CELLS
[2017-02-24 08:28] LABS: PLATELET SUFFICIENCY LOW (NORMAL)
[2017-02-24 12:00] VITALS: BP 148/46
[2017-02-24 16:00] VITALS: BP 182/53
[2017-02-24 20:00] VITALS: BP 109/67; BP 161/42
[2017-02-25] VITALS: BP 151/57
[2017-02-25 06:59] LABS: HEMATOCRIT 26.2 % (37.0-47.0); MEAN CELL VOLUME 85.6 fl (81.0-99.0); MEAN CORPUSCULAR HGB 29.4 pg (27.0-31.0); MEAN CORPUSCULAR HGB CONC 34.4 g/dl (33.0-37.0); RED BLOOD COUNT 3.06 10*6/uL (4.10-5.10); RED CELL DISTRI WIDTH 14.6 % (0-14.5); WHITE BLOOD COUNT 2.4 10*3/uL (4.8-10.8)
[2017-02-25 07:07] LABS: ALBUMIN 2.3 gm/dl (3.1-4.5); CREATININE 1.11 mg/dL (0.55-1.02); POTASSIUM 3.9 mmol/L (3.5-5.1); TOTAL PROTEIN 5.2 gm/dL (6.4-8.2)
[2017-02-25 07:48] LABS: OVALOCYTES FEW; TOTAL CELLS COUNTED 50 #CELLS
[2017-02-25 07:49] LABS: BURR CELLS FEW; PLATELET SUFFICIENCY LOW (NORMAL); POLYCHROMASIA SLIGHT
[2017-02-25 07:50] LABS: PLATELET COUNT AUTOMATED 27 10*3/uL (130-400)
[2017-02-25 08:00] VITALS: BP 156/50
[2017-02-25 12:00] VITALS: BP 162/50
[2017-02-25 16:00] VITALS: BP 163/52
[2017-02-25 20:00] VITALS: BP 150/52
[2017-02-26] VITALS: BP 171/51
[2017-02-26 06:53] LABS: HEMATOCRIT 27.7 % (37.0-47.0); HEMOGLOBIN 9.3 g/dl (12.0-16.0); MEAN CELL VOLUME 86.6 fl (81.0-99.0); MEAN CORPUSCULAR HGB 29.1 pg (27.0-31.0); MEAN CORPUSCULAR HGB CONC 33.6 g/dl (33.0-37.0); RED CELL DISTRI WIDTH 14.6 % (0-14.5)
[2017-02-26 06:57] LABS: PLATELET COUNT AUTOMATED 43 10*3/uL (130-400)
[2017-02-26 07:22] LABS: ATYPICAL LYMPHS 3 % (0-0); BASOPHILS 2 % (0-1); TOTAL CELLS COUNTED 100 #CELLS
[2017-02-26 07:27] LABS: PLATELET SUFFICIENCY LOW (NORMAL)
[2017-02-26 07:35] LABS: CREATININE 1.14 mg/dL (0.55-1.02); POTASSIUM 3.5 mmol/L (3.5-5.1)
[2017-02-26 08:00] VITALS: BP 156/62
[2017-02-26 12:00] VITALS: BP 156/54
[2017-02-26 16:00] VITALS: BP 176/55
[2017-02-26 20:00] VITALS: BP 170/57
[2017-02-27] VITALS: BP 161/59
[2017-02-27 07:13] LABS: HEMATOCRIT 24.8 % (37.0-47.0); HEMOGLOBIN 8.4 g/dl (12.0-16.0); MEAN CELL VOLUME 86.1 fl (81.0-99.0); MEAN CORPUSCULAR HGB 29.2 pg (27.0-31.0); MEAN CORPUSCULAR HGB CONC 33.9 g/dl (33.0-37.0); PLATELET COUNT AUTOMATED 41 10*3/uL (130-400); RED BLOOD COUNT 2.88 10*6/uL (4.10-5.10); RED CELL DISTRI WIDTH 14.6 % (0-14.5); WHITE BLOOD COUNT 2.7 10*3/uL (4.8-10.8)
[2017-02-27 07:20] LABS: MEAN PLATELET VOLUME 11.7 fl (9.6-12.3)
[2017-02-27 07:30] LABS: PLATELET SUFFICIENCY LOW (NORMAL); POLYCHROMASIA SLIGHT; TOTAL CELLS COUNTED 100 #CELLS
[2017-02-27 07:46] LABS: POTASSIUM 3.8 mmol/L (3.5-5.1)
[2017-02-27 07:48] LABS: CREATININE 1.12 mg/dL (0.55-1.02)
[2017-02-27 08:00] VITALS: BP 174/50
[2017-02-27] MEDS ORDERED: FLAGYL500 MG PO (10:05)
[2017-02-27] MEDS ORDERED: FLUCONAZOLE100 MG PO (10:05)
[2017-02-27] MEDS ORDERED: CIPRO500 MG PO (10:05)
[2017-02-27 12:00] VITALS: BP 162/56
[2017-02-27 16:00] VITALS: BP 178/49
[2017-02-27 20:00] VITALS: BP 170/49
[2017-02-28] VITALS: BP 165/42
[2017-02-28 06:44] LABS: HEMOGLOBIN 8.6 g/dl (12.0-16.0); MEAN CELL VOLUME 86.1 fl (81.0-99.0); MEAN CORPUSCULAR HGB 28.5 pg (27.0-31.0); MEAN CORPUSCULAR HGB CONC 33.1 g/dl (33.0-37.0); MEAN PLATELET VOLUME 13.3 fl (9.6-12.3); PLATELET COUNT AUTOMATED 41 10*3/uL (130-400); RED BLOOD COUNT 3.02 10*6/uL (4.10-5.10); RED CELL DISTRI WIDTH 14.7 % (0-14.5); WHITE BLOOD COUNT 3.3 10*3/uL (4.8-10.8)
[2017-02-28 06:59] LABS: ALBUMIN 2.4 gm/dl (3.1-4.5); CREATININE 1.19 mg/dL (0.55-1.02); POTASSIUM 3.7 mmol/L (3.5-5.1); TOTAL PROTEIN 5.3 gm/dL (6.4-8.2)
[2017-02-28 07:12] LABS: BASOPHILS 1 % (0-1); PLATELET SUFFICIENCY LOW (NORMAL); POLYCHROMASIA SLIGHT; SCHISTOCYTES FEW; TOTAL CELLS COUNTED 100 #CELLS
[2017-02-28 08:00] VITALS: BP 168/50
[2017-02-28 12:00] VITALS: BP 176/50
[2017-02-28] MEDS ORDERED: LEVEMIR100 UNIT/1 SC (12:06)
== END 2017-02-28 14:30 | disposition home or self-care (01) | DRG 808 ==
LOC: ED 14:58 → 5E 17:12 → EDHOLD 17:12 → 5E 17:51
PROVIDERS: Emergency Medicine; Family Medicine Adult Medicine; Internal Medicine; Internal Medicine Hospice and Palliative Medicine; Registered Nurse; Student in an Organized Health Care Education/Training Program
PROC: 30233R1 Transfusion of Nonautologous Platelets into Peripheral Vein, Percutaneous Approach (ICD-10-PCS; principal; 2017-02-18)
PROC: 30233N1 Transfusion of Nonautologous Red Blood Cells into Peripheral Vein, Percutaneous Approach (ICD-10-PCS; 2017-02-19)
DX: D61.810 Antineoplastic chemotherapy induced pancytopenia (principal); E43 Unspecified severe protein-calorie malnutrition; E11.22 Type 2 diabetes mellitus with diabetic chronic kidney disease; E11.319 Type 2 diabetes mellitus with unspecified diabetic retinopathy without macular edema; E11.42 Type 2 diabetes mellitus with diabetic polyneuropathy; K57.92 Diverticulitis of intestine, part unspecified, without perforation or abscess without bleeding; E87.1 Hypo-osmolality and hyponatremia; D46.C Myelodysplastic syndrome with isolated del(5q) chromosomal abnormality; I45.2 Bifascicular block; I12.0 Hypertensive chronic kidney disease with stage 5 chronic kidney disease or end stage renal disease; E11.65 Type 2 diabetes mellitus with hyperglycemia; T45.1X5A Adverse effect of antineoplastic and immunosuppressive drugs, initial encounter; K21.9 Gastro-esophageal reflux disease without esophagitis; N18.3 Chronic kidney disease, stage 3 (moderate); D46.9 Myelodysplastic syndrome, unspecified; N32.81 Overactive bladder; I25.10 Atherosclerotic heart disease of native coronary artery without angina pectoris; F32.9 Major depressive disorder, single episode, unspecified; E78.5 Hyperlipidemia, unspecified; E03.9 Hypothyroidism, unspecified; E55.9 Vitamin D deficiency, unspecified; D63.8 Anemia in other chronic diseases classified elsewhere; Z79.4 Long term (current) use of insulin; Z90.49 Acquired absence of other specified parts of digestive tract; Z86.73 Personal history of transient ischemic attack (TIA), and cerebral infarction without residual deficits; I25.2 Old myocardial infarction; Z98.49 Cataract extraction status, unspecified eye; Z90.710 Acquired absence of both cervix and uterus; Z95.5 Presence of coronary angioplasty implant and graft; Z83.3 Family history of diabetes mellitus; Z82.49 Family history of ischemic heart disease and other diseases of the circulatory system; Z80.0 Family history of malignant neoplasm of digestive organs; Z80.1 Family history of malignant neoplasm of trachea, bronchus and lung; Z84.1 Family history of disorders of kidney and ureter; Z80.8 Family history of malignant neoplasm of other organs or systems; Z79.899 Other long term (current) drug therapy; Z68.26 Body mass index [BMI] 26.0-26.9, adult; Z92.21 Personal history of antineoplastic chemotherapy

== ENCOUNTER 2017-03-02 15:17 | Inpatient (IN) | payer OTHER, MEDICAID ==
[~2017-03-02] VITALS: Ht 163 cm; Wt 81.6 kg
--- NOTE | ~2017-03-02 | PR ---
[place], [place] PROGRESS NOTE NAME: MARIA DEL CARMEN PLATA [facility] #: [id number] UNIT #: [id number] ROOM: 428 DOCTOR: DEEPALI LINDA MD BIRTHDATE: [birth year] DOS: 03/05/2017 SUBJECTIVE: The patient is doing much better. She is alert and oriented. REVIEW OF SYSTEMS HEENT: No trouble swallowing. No double vision. No loss of vision. No pain. ENT AND RESPIRATORY: No wheeze. No change in voice. No cough. No shortness of breath. No coughing up blood. No epistaxis. CARDIOLOGIC: No chest pain. No dizziness. No irregular heartbeat. No leg edema. No palpitations. No shortness of breath. HEMATOLOGIC AND LYMPH: No past transfusion. No fatigue. No loss of appetite. No easy bruising. GASTROENEROLOGIC: No change in bowel habits. No vomiting blood. No abdominal cramping. No nausea. No vomiting. No diarrhea. No constipation. No blood in stool. FEMALE REPRODUCTIVE: No dyspareunia. No pelvic pain. MUSCULOSKELETAL: No back pain. No muscle pain or weakness. No tingling/numbness. UROLOGIC: No pain with urination. No difficulty urinating. No frequent urination. NEUROLOGIC: No burning pain in feet. No trouble with coordination. No loss of consciousness. No headache. No tingling/numbness. No memory loss. PHYSICAL EXAMINATION: GENERAL: She is a pleasant woman, in no apparent distress. VITAL SIGNS: Blood pressure 174/56, respiration 16, pulse 80, temperature 98.3. HEENT: Normocephalic, atraumatic NECK AND THYROID: Supple. No JVD, thyromegaly, or lymphadenopathy. HEART: Normal S1, S2. Regular rate and rhythm. LUNGS: Clear to auscultation and percussion. ABDOMEN: Soft. Nontender, nondistended. Bowel sounds present. EXTREMITIES: Normal ROM. No clubbing. No edema. LABORATORY DATA: White count 2.1, hemoglobin 6.8, hematocrit 20.5, platelet count of 32,000. ASSESSMENT: 1. Pancytopenia. 2. Progressive anemia secondary to MDS. PLAN: She will be getting a couple of units of packed RBC. I had a detailed discussion with the patient about it. [place], [place] PROGRESS NOTE NAME: MARIA DEL CARMEN PLATA UNIT #: [id number] ROOM: 428 DOCTOR: DEEPALI LINDA MD BIRTHDATE: [birth year] DEEPALI LINDA MD CM:LUIS 1007 27 DEEPALI LINDA MD 03/06/172026 interface
--- NOTE | ~2017-03-02 | PR ---
[place], [place] PROGRESS NOTE NAME: MARIA DEL CARMEN PLATA [facility] #: [id number] UNIT #: [id number] ROOM: 428 DOCTOR: DEEPALI LINDA MD BIRTHDATE: [birth year] DOS: 03/06/2017 SUBJECTIVE: The patient is doing much better. She is awake and responsive. She is going home today. Does not have any diarrhea. PHYSICAL EXAMINATION: GENERAL: She is a pleasant woman in no acute distress. VITAL SIGNS: Stable. She is afebrile. HEENT: Normocephalic, atraumatic NECK AND THYROID: Supple. No JVD, thyromegaly, or lymphadenopathy. HEART: Normal S1, S2. Regular rate and rhythm. LUNGS: Clear to auscultation and percussion. ABDOMEN: Soft. Nontender, nondistended. Bowel sounds present. EXTREMITIES: Normal ROM. No clubbing. No edema. LABORATORY DATA: White count 2.4, hemoglobin 10.0, hematocrit 29.4, and platelet count 32,000. ASSESSMENT: 1. Pancytopenia. 2. Myelodysplastic syndrome -5q. 3. Status post 2 units of packed red blood cells. 4. Diverticulitis/diarrhea. PLAN: Overall, she is doing much better. We will be discussing with her about starting on lenalidomide after discussing with her the pros and cons again as an outpatient. In the meantime, advised if any fever, chills, any weakness or tiredness, to call us, otherwise close followup discussed with the patient. DEEPALI LINDA MD CM:PNTRANS 1011 14 DEEPALI LINDA MD 03/06/172014 interface
--- NOTE | ~2017-03-02 | CON ---
[place], [place] REPORT OF CONSULTATION NAME: MARIA DEL CARMEN PLATA [facility] #: [id number] UNIT #: [id number] ROOM: 428 DOCTOR: DEEPALI LINDA MD BIRTHDATE: [birth year] DOS: 03/03/2017 HISTORY OF PRESENT ILLNESS: The patient is a pleasant elderly woman who was recently treated for diverticulitis on 02/28/2017. She was noted to have irregular heartbeat as well as has a history of myelodysplastic syndrome and pancytopenia and consulted for further evaluation and management. PAST MEDICAL HISTORY: -5q. MDS, history of CVA with multiple TIAs, history of chronic kidney disease, coronary artery stent placement, status post upper and lower endoscopy, hypertension, and hyperlipidemia. PAST SURGICAL HISTORY: Cataract surgery and coronary artery stent placement in 2014. SOCIAL HISTORY: No smoking or drinking. FAMILY HISTORY: Positive for coronary arteries. ALLERGIES: None. MEDICATIONS: On Cipro, isosorbide, magnesium, metoprolol, metronidazole, and nitroglycerin. REVIEW OF SYSTEMS: CONSTITUTIONAL: No chills. No fatigue. No fever. No loss of appetite. No night sweats. No weakness. No weight loss. HEENT: No trouble swallowing. No loss of smell. No loss of hearing. No double vision. No pain. No discharge. ENT AND RESPIRATORY: No wheeze. No sore throat. No change in voice. No hearing loss. No nose bleed. No cough. No trouble breathing through nose. No shortness of breath. No coughing up blood. No epistaxis. CARDIOVASCULAR: No chest pain. No dizziness. No irregular heartbeat. No leg edema. No pain in legs while walking. No palpitations. No shortness of breath. DERMATOLOGIC: No acne. No hives. No laceration. No mole. No rash. ENDOCRINE: No cold intolerance. No diabetes. No fatigue. No hot flashes. No polydipsia. No polyuria. No urinating frequently. No weight loss. HEMATOLOGIC AND LYMPH: No fatigue. No easy bruising. GASTROENTEROLOGIC: No change in bowel habits. No indigestion. No frequent bloating. No vomiting blood. No abdominal cramping. No nausea. No heartburn. No vomiting. No abdominal pain. No dysphagia. No diarrhea. No constipation. No blood in stool. FEMALE REPRODUCTIVE: No vaginal itching. No difficulty urinating. No heavy periods. No dyspareunia. No sexually active. No dysmenorrhea. No pelvic pain. No breast pain. No nipple discharge. No abnormal vaginal discharge. No hot flashes. MUSCULOSKELETAL: No back pain. No muscle pain or weakness. No neck pain. No tingling/numbness. No swelling/bruising. No osteoporosis treatment. OPHTHALMOLOGIC: No double vision. No diminished vision. No loss of vision. UROLOGIC: No dysuria. No frequent nighttime urination. No irregular periods. [place], [place] REPORT OF CONSULTATION NAME: MARIA DEL CARMEN PLATA UNIT #: [id number] ROOM: 428 DOCTOR: DEEPALI LINDA MD BIRTHDATE: [birth year] No pain with urination. No difficulty urinating. No blood in urine. No frequent urination. No urinary incontinence. NEUROLOGIC: No loss of sensation in specific body area. No vertigo. No burning pain in feet. No trouble with balance. No trouble with coordination. No loss of consciousness. No loss of feeling/power. No confusion. No headache. No tingling/numbness. PSYCHOLOGIC: No tinnitus. No headaches. No shortness of breath. No weight decrease. No nausea. No vomiting. No abdominal discomfort. No constipation. No diarrhea. No depression. No anxiety. PHYSICAL EXAMINATION: GENERAL: A pleasant woman, in no apparent distress. VITAL SIGNS: Stable. She is afebrile. Blood pressure 170/70, heart rate is 100 and AFib. HEENT: Oral mucosa appears intact. The external ears are normal in appearance. Nares are patent without lesions, exudates, erythema, or inflammation. Tongue is symmetrical. Uvula is midline. NECK AND THYROID: Neck supple without palpable masses. Trachea is midline. No thyromegaly. No carotid bruit or JVD. BREASTS: Normal. Nipples unremarkable. No drainage. No lumps felt on either side. HEART: Normal S1, S2, without significant murmur, rub, or gallop. LUNGS: Clear to auscultation and percussion with good air entry bilaterally. The patient is breathing easily without the use of accessory muscles. Diaphragmatic excursions are intact. ABDOMEN: No costovertebral angle tenderness. Soft. No organomegaly or masses. Nontender. No hernias present. Liver and spleen are not palpable. LYMPHATIC: No adenopathy noted in the cervical, supraclavicular, axillary, or inguinal regions. NEUROLOGIC: Nonfocal. Oriented to person, place, and time. MENTAL STATUS: Appropriate for mood and affect. PERIPHERAL PULSES: No varicosities. Femoral and pedal pulses are palpable. EXTREMITIES: Without cyanosis, clubbing, or edema. No gross anomalies. LABORATORY DATA: Hemoglobin 9.4, hematocrit 27.3, platelet count 50,000. Sodium 133, potassium 3.7. ASSESSMENT: 1. Myelodysplastic syndrome. 2. Pancytopenia secondary to #1. 3. Atrial fibrillation. 4. Hypertension. PLAN: The patient's platelet count is about 50,000, advised the patient can be started on Lovenox ____ antidote and in case the patient bleeds or bruises or when her platelet count drops, it can be stopped. If we would add Eliquis, it will be difficult to control the bleeding if she bleeds; however, if her platelet count starts increasing to more than 75,000, the patient can be started on Eliquis. I had a detailed discussion with the patient about it and she seemed to understand it. Ample time was given to the patient to ask me [place], [place] REPORT OF CONSULTATION NAME: MARIA DEL CARMEN PLATA UNIT #: [id number] ROOM: [facility] DOCTOR: DEEPALI LINDA MD BIRTHDATE: [birth year] questions. We will follow. Thanks for consulting and letting me participate in the care of this interesting patient. DEEPALI LINDA MD CM:CONSTR:REPORT OF CONSULTATION 1387 03/03/17 [id number] interface
--- NOTE | ~2017-03-02 | CON ---
[place], [place] REPORT OF CONSULTATION NAME: MARIA DEL CARMEN PLATA UNIT #: [id number] ROOM: 428 DOCTOR: OMID FARLEYSWATHI BIRTHDATE: [birth year] DOS: 03/03/2017 HISTORY OF PRESENT ILLNESS: The patient is very well known to me with a history of coronary artery, put a stent about 2 years ago. The patient was recently in the hospital in December and I was unaware and was seen by other plasterer rough. She had an echocardiogram done in December showed an ejection fraction well preserved. The patient was recently treated for diverticulitis on 02/28/2017 and she was here after 11 days of treatment. The patient was discharged home and she had severe chronic diarrhea and vomiting. The patient apparently also has been vomiting today and has a nonbloody and bilious. The patient had chemotherapy yesterday morning. The patient is in atrial fibrillation with a controlled ventricular response. PAST MEDICAL HISTORY: Coronary artery stent placement, hypertension, hyperlipidemia, history of CVA, history of TIAs also, pancytopenia, myelodysplastic syndrome, chronic kidney disease. PAST SURGICAL HISTORY: Cataract surgery and coronary artery stent placement in 11/2014. SOCIAL HISTORY: She does not drink alcohol. FAMILY HISTORY: Positive for coronary arteries. ALLERGIES: None. HOME MEDICATIONS: Cipro, isosorbide, magnesium, metoprolol, metronidazole, and nitroglycerin. REVIEW OF SYSTEMS: CONSTITUTIONAL: No fever, no chills. HEENT: No visual disturbances, hearing problems. CARDIOVASCULAR: Denies any chest pain. GASTROINTESTINAL: Reports nausea. GENITOURINARY: No dysuria. NEUROLOGICAL: Stable. PHYSICAL EXAMINATION: VITAL SIGNS: Blood pressure today is 170/70, heart rate is 100 and AFib. NECK: Supple, no JVD. LUNGS: Diminished breath sounds. HEART: Sounds are irregularly irregular. ABDOMEN: Soft, nontender. NEUROLOGICAL: Stable. LABORATORY DATA: Sodium 133 and potassium 3.7. BUN and creatinine is normal. Troponin is 0.024. Recent echo showed a good ejection fraction. Hemoglobin 9.4, hematocrit 27.3, and platelet count of 50. IMPRESSION: Atrial fibrillation, slightly rapid ventricular response, duration [place], [place] REPORT OF CONSULTATION NAME: MARIA DEL CARMEN PLATA UNIT #: [id number] ROOM: [facility] DOCTOR: SWATHI ANNE MD BIRTHDATE: [birth year] unknow; hypertension, and known coronary artery stent placement. RECOMMENDATIONS: Increase the beta blockers to 50 b.i.d. Discussed with Oncology because of thrombocytopenia whether we can start the patient on antiplatelet drugs like Eliquis 2.5 b.i.d. The patient is being started on heparin drip and I will follow up. SWATHI ANNE MD CM:CONSTR:REPORT OF CONSULTATION 0811 03/03/17 0835 interface
--- NOTE | ~2017-03-02 | PR ---
[place], [place] PROGRESS NOTE NAME: MARIA DEL CARMEN PLATA [facility] #: [id number] UNIT #: [id number] ROOM: 428 DOCTOR: DEEPALI LINDA MD BIRTHDATE: [birth year] DOS: 03/04/2017 SUBJECTIVE: The patient is doing better. She is alert, oriented. The daughter at the bedside. REVIEW OF SYSTEMS HEENT: No trouble swallowing. No double vision. No loss of vision. No pain. ENT AND RESPIRATORY: No wheeze. No change in voice. No cough. No shortness of breath. No coughing up blood. No epistaxis. CARDIOLOGIC: No chest pain. No dizziness. No irregular heartbeat. No leg edema. No palpitations. No shortness of breath. HEMATOLOGIC AND LYMPH: No past transfusion. No fatigue. No loss of appetite. No easy bruising. GASTROENEROLOGIC: No change in bowel habits. No vomiting blood. No abdominal cramping. No nausea. No vomiting. No diarrhea. No constipation. No blood in stool. FEMALE REPRODUCTIVE: No dyspareunia. No pelvic pain. MUSCULOSKELETAL: No back pain. No muscle pain or weakness. No tingling/numbness. UROLOGIC: No pain with urination. No difficulty urinating. No frequent urination. NEUROLOGIC: No burning pain in feet. No trouble with coordination. No loss of consciousness. No headache. No tingling/numbness. No memory loss. PHYSICAL EXAMINATION GENERAL: She is a pleasant woman in no acute distress. VITAL SIGNS: Stable. She is afebrile. HEENT: Normocephalic, atraumatic NECK AND THYROID: Supple. No JVD, thyromegaly, or lymphadenopathy. HEART: Normal S1, S2. Regular rate and rhythm. LUNGS: Clear to auscultation and percussion. ABDOMEN: Soft. Nontender, nondistended. Bowel sounds present. EXTREMITIES: Normal ROM. No clubbing. No edema. LABORATORY DATA: White count of 2.8, hemoglobin of 7.8, hematocrit 23.0, platelet count of 46,000. Peripheral smear shows metamyelocytes and myelocytes. ASSESSMENT: 1. 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 2. Myelodysplastic syndrome -5q. 3. Atrial fibrillation. 4. Status post multiple units of packed red blood cells and platelets in the past. PLAN: I had detailed discussion with the patient that we can start her on lenalidomide, which can cause clotting. She has a history of strokes as well as TIAs, but the benefit of the lenalidomide is outweighs the risk of strokes. I have explained to her that she will be on anticoagulation and she can be started on lenalidomide, but she has understand that she can still have a stroke or blood clot and she seemed to understand it. She wants to give a trial for [place], [place] PROGRESS NOTE NAME: MARIA DEL CARMEN PLATA [facility] #: [id number] UNIT #: [id number] ROOM: [facility] DOCTOR: ALEXEI FARLEY,DEEPALI BIRTHDATE: [birth year] lenalidomide. I did talk to them to discuss with the family and then when we see as an outpatient we will go with the side effects again. Ample time was given to the patient to ask me questions. DEEPALI LINDA MD CM:PNTRANS 1203 [id number] DEEPALI LINDA MD 03/04/17 1504 interface
[~2017-03-02 15:17] MED LIST changes: +CIPRO500 MG PO; +FLAGYL500 MG PO; +FLUCONAZOLE100 MG PO
[2017-03-02 15:20] VITALS: BP 170/44
[2017-03-02 15:55] LABS: HEMATOCRIT 27.6 % (37.0-47.0); HEMOGLOBIN 9.4 g/dl (12.0-16.0); MEAN CELL VOLUME 86.3 fl (81.0-99.0); MEAN CORPUSCULAR HGB 29.4 pg (27.0-31.0); MEAN CORPUSCULAR HGB CONC 34.1 g/dl (33.0-37.0); MEAN PLATELET VOLUME 12.4 fl (9.6-12.3); PLATELET COUNT AUTOMATED 50 10*3/uL (130-400); RED CELL DISTRI WIDTH 14.8 % (0-14.5); WHITE BLOOD COUNT 3.4 10*3/uL (4.8-10.8)
[2017-03-02 16:12] LABS: ALBUMIN 2.7 gm/dl (3.1-4.5); CREATININE 1.43 mg/dL (0.55-1.02); POTASSIUM 3.7 mmol/L (3.5-5.1); TOTAL PROTEIN 6.4 gm/dL (6.4-8.2); TROPONIN I 0.024 ng/ml (<0.045)
[2017-03-02 16:30] VITALS: BP 173/53
[2017-03-02 16:44] LABS: TOTAL CELLS COUNTED 100 #CELLS
[2017-03-02 16:45] LABS: OVALOCYTES FEW; PLATELET SUFFICIENCY LOW (NORMAL)
[2017-03-02 20:00] VITALS: BP 162/52
[2017-03-03] VITALS: BP 151/51
[2017-03-03 08:00] VITALS: BP 164/55
[2017-03-03 08:46] LABS: HEMATOCRIT 24.7 % (37.0-47.0); HEMOGLOBIN 8.4 g/dl (12.0-16.0); MEAN CELL VOLUME 86.1 fl (81.0-99.0); MEAN CORPUSCULAR HGB 29.3 pg (27.0-31.0); PLATELET COUNT AUTOMATED 46 10*3/uL (130-400); RED BLOOD COUNT 2.87 10*6/uL (4.10-5.10); RED CELL DISTRI WIDTH 14.7 % (0-14.5); WHITE BLOOD COUNT 3.2 10*3/uL (4.8-10.8)
[2017-03-03 08:47] LABS: ACT PARTIAL THROMBO TIME 42.3 SECONDS (20.8-31.5); INTERNATIONAL NORM RATIO 1.2 (2.0-3.5)
[2017-03-03 08:53] LABS: ALBUMIN 2.2 gm/dl (3.1-4.5); CREATININE 1.36 mg/dL (0.55-1.02); PHOSPHOROUS 2.7 mg/dL (2.5-4.9); POTASSIUM 3.8 mmol/L (3.5-5.1); TOTAL PROTEIN 5.4 gm/dL (6.4-8.2)
[2017-03-03 09:52] LABS: ATYPICAL LYMPHS 2 % (0-0); BASOPHILS 4 % (0-1); PLATELET SUFFICIENCY LOW (NORMAL); SCHISTOCYTES FEW; TOTAL CELLS COUNTED 100 #CELLS
[2017-03-03 10:14] LABS: BILIRUBIN NEGATIVE (NEGATIVE); BLOOD 3+ (NEGATIVE); CLARITY CLEAR (CLEAR); COLOR YELLOW (YELLOW); GLUCOSE 2+ (NEGATIVE); KETONE NEGATIVE (NEGATIVE); LEUKO ESTERASE 2+ (NEGATIVE); NITRITE NEGATIVE (NEGATIVE); UROBILINOGEN 0.2 E.U./dl (0.2-1.0)
[2017-03-03 10:35] LABS: BACTERIA 4+; MUCOUS 4+; RBC TNTC rbc/hpf (0-2); WBC TNTC wbc/hpf (0-5)
[2017-03-03 12:00] VITALS: BP 177/57
[2017-03-03 16:00] VITALS: BP 147/53
[2017-03-03 20:00] VITALS: BP 148/56
[2017-03-04] VITALS: BP 148/61
[2017-03-04 08:00] VITALS: BP 155/50
[2017-03-04 08:22] LABS: HEMOGLOBIN 7.8 g/dl (12.0-16.0); MEAN CELL VOLUME 86.5 fl (81.0-99.0); MEAN CORPUSCULAR HGB 29.3 pg (27.0-31.0); MEAN CORPUSCULAR HGB CONC 33.9 g/dl (33.0-37.0); MEAN PLATELET VOLUME 13.3 fl (9.6-12.3); PLATELET COUNT AUTOMATED 46 10*3/uL (130-400); RED BLOOD COUNT 2.66 10*6/uL (4.10-5.10); RED CELL DISTRI WIDTH 14.7 % (0-14.5); WHITE BLOOD COUNT 2.8 10*3/uL (4.8-10.8)
[2017-03-04 08:43] LABS: ACANTHOCYTES FEW; ATYPICAL LYMPHS 1 % (0-0); BASOPHILS 1 % (0-1); BURR CELLS FEW; PLATELET SUFFICIENCY LOW (NORMAL); TOTAL CELLS COUNTED 100 #CELLS
[2017-03-04 08:50] LABS: ALBUMIN 2.2 gm/dl (3.1-4.5); POTASSIUM 3.5 mmol/L (3.5-5.1)
[2017-03-04 08:55] LABS: CREATININE 1.47 mg/dL (0.55-1.02); TOTAL PROTEIN 5.2 gm/dL (6.4-8.2)
[2017-03-04 12:00] VITALS: BP 152/53
[2017-03-04 16:00] VITALS: BP 145/65
[2017-03-04 20:00] VITALS: BP 168/55
[2017-03-05] VITALS (17 sets, daily range): BP systolic 155–192; BP diastolic 50–66
[2017-03-05 07:19] LABS: HEMATOCRIT 20.5 % (37.0-47.0); HEMOGLOBIN 6.8 g/dl (12.0-16.0); MEAN CORPUSCULAR HGB 29.2 pg (27.0-31.0); MEAN CORPUSCULAR HGB CONC 33.2 g/dl (33.0-37.0); RED BLOOD COUNT 2.33 10*6/uL (4.10-5.10); RED CELL DISTRI WIDTH 14.8 % (0-14.5); WHITE BLOOD COUNT 2.1 10*3/uL (4.8-10.8)
[2017-03-05 07:25] LABS: PLATELET COUNT AUTOMATED 32 10*3/uL (130-400)
[2017-03-05 07:44] LABS: ALBUMIN 2.1 gm/dl (3.1-4.5); CREATININE 1.44 mg/dL (0.55-1.02); POTASSIUM 3.5 mmol/L (3.5-5.1)
[2017-03-05 08:11] LABS: ATYPICAL LYMPHS 1 % (0-0); TOTAL CELLS COUNTED 100 #CELLS
[2017-03-05 08:12] LABS: BURR CELLS FEW; PLATELET SUFFICIENCY LOW (NORMAL)
[2017-03-06] VITALS: BP 150/40; BP 159/59
[2017-03-06 08:00] VITALS: BP 170/50
[2017-03-06 08:22] LABS: MEAN CELL VOLUME 86.5 fl (81.0-99.0); MEAN CORPUSCULAR HGB 29.4 pg (27.0-31.0); MEAN PLATELET VOLUME 10.5 fl (9.6-12.3); PLATELET COUNT AUTOMATED 32 10*3/uL (130-400); RED CELL DISTRI WIDTH 14.5 % (0-14.5); WHITE BLOOD COUNT 2.4 10*3/uL (4.8-10.8)
[2017-03-06 08:24] LABS: HEMATOCRIT 29.4 % (37.0-47.0)
[2017-03-06 08:34] LABS: ALBUMIN 2.6 gm/dl (3.1-4.5); CREATININE 1.25 mg/dL (0.55-1.02); POTASSIUM 3.9 mmol/L (3.5-5.1); TOTAL PROTEIN 5.8 gm/dL (6.4-8.2)
[2017-03-06 08:50] LABS: TOTAL CELLS COUNTED 100 #CELLS
[2017-03-06 08:51] LABS: PLATELET SUFFICIENCY LOW (NORMAL); POLYCHROMASIA SLIGHT
[2017-03-06 11:28] LABS: PHOSPHOROUS 2.6 mg/dL (2.5-4.9)
[2017-03-06 12:00] VITALS: BP 156/51
[2017-03-06] MEDS ORDERED: AMLODIPINE BESYL5 MG PO (14:16)
[2017-03-06] MEDS ORDERED: IMDUR SA60 M1 PO (14:16)
== END 2017-03-06 15:38 | disposition other institution (70) | DRG 871 ==
LOC: ED 15:17 → 4E 17:44 → EDHOLD 17:44 → 4E 17:46
PROVIDERS: Internal Medicine Hematology & Oncology; Internal Medicine Hospice and Palliative Medicine; Internal Medicine Nephrology; Student in an Organized Health Care Education/Training Program
PROC: 30233N1 Transfusion of Nonautologous Red Blood Cells into Peripheral Vein, Percutaneous Approach (ICD-10-PCS; principal; 2017-03-05)
DX: A41.9 Sepsis, unspecified organism (principal); E43 Unspecified severe protein-calorie malnutrition; D61.818 Other pancytopenia; C95.90 Leukemia, unspecified not having achieved remission; D68.59 Other primary thrombophilia; E11.22 Type 2 diabetes mellitus with diabetic chronic kidney disease; E87.1 Hypo-osmolality and hyponatremia; I45.2 Bifascicular block; D46.C Myelodysplastic syndrome with isolated del(5q) chromosomal abnormality; K57.32 Diverticulitis of large intestine without perforation or abscess without bleeding; I13.0 Hypertensive heart and chronic kidney disease with heart failure and stage 1 through stage 4 chronic kidney disease, or unspecified chronic kidney disease; I50.32 Chronic diastolic (congestive) heart failure; E11.42 Type 2 diabetes mellitus with diabetic polyneuropathy; R50.81 Fever presenting with conditions classified elsewhere; N18.3 Chronic kidney disease, stage 3 (moderate); E11.65 Type 2 diabetes mellitus with hyperglycemia; E87.8 Other disorders of electrolyte and fluid balance, not elsewhere classified; I48.91 Unspecified atrial fibrillation; I25.10 Atherosclerotic heart disease of native coronary artery without angina pectoris; K21.9 Gastro-esophageal reflux disease without esophagitis; Z66 Do not resuscitate; Z51.5 Encounter for palliative care; J44.9 Chronic obstructive pulmonary disease, unspecified; J45.909 Unspecified asthma, uncomplicated; T45.1X5A Adverse effect of antineoplastic and immunosuppressive drugs, initial encounter; F41.9 Anxiety disorder, unspecified; I45.10 Unspecified right bundle-branch block; D63.8 Anemia in other chronic diseases classified elsewhere; E78.5 Hyperlipidemia, unspecified; E03.9 Hypothyroidism, unspecified; N32.81 Overactive bladder; F32.9 Major depressive disorder, single episode, unspecified; E55.9 Vitamin D deficiency, unspecified; E66.09 Other obesity due to excess calories; Z68.30 Body mass index [BMI] 30.0-30.9, adult; Z90.49 Acquired absence of other specified parts of digestive tract; Z90.710 Acquired absence of both cervix and uterus; Z98.49 Cataract extraction status, unspecified eye; Z95.5 Presence of coronary angioplasty implant and graft; Z82.49 Family history of ischemic heart disease and other diseases of the circulatory system; Z86.73 Personal history of transient ischemic attack (TIA), and cerebral infarction without residual deficits; Z83.3 Family history of diabetes mellitus; Z80.0 Family history of malignant neoplasm of digestive organs; Z80.1 Family history of malignant neoplasm of trachea, bronchus and lung; Z84.1 Family history of disorders of kidney and ureter; Z80.49 Family history of malignant neoplasm of other genital organs; Y92.89 Other specified places as the place of occurrence of the external cause

== ENCOUNTER → 2017-03-11 | Outpatient (CLI) | payer OTHER, MEDICAID ==
[~2017-03-11] MED LIST changes: +AMLODIPINE BESYL5 MG PO; +NATURE'S BLEND F1 MG PO; +OMEPRAZOLE MAGN20 MG PO
[2017-03-11 15:00] VITALS: BP 145/45
[2017-03-11 15:53] LABS: HEMATOCRIT 25.2 % (37.0-47.0); HEMOGLOBIN 8.6 g/dl (12.0-16.0); MEAN CELL VOLUME 88.4 fl (81.0-99.0); MEAN CORPUSCULAR HGB 30.2 pg (27.0-31.0); MEAN CORPUSCULAR HGB CONC 34.1 g/dl (33.0-37.0); RED BLOOD COUNT 2.85 10*6/uL (4.10-5.10); RED CELL DISTRI WIDTH 14.5 % (0-14.5); WHITE BLOOD COUNT 2.6 10*3/uL (4.8-10.8)
[2017-03-11 16:37] LABS: TOTAL CELLS COUNTED 100 #CELLS
[2017-03-11 16:38] LABS: PLATELET SUFFICIENCY LOW (NORMAL)
[2017-03-11 16:51] LABS: PLATELET COUNT AUTOMATED 17 10*3/uL (130-400)
[2017-03-11 18:20] VITALS: BP 161/49
[2017-03-11 22:15] VITALS: BP 154/56
[2017-03-11 22:30] VITALS: BP 155/51
[2017-03-11 23:00] VITALS: BP 158/55
[2017-03-12] VITALS: BP 159/49
== END | disposition home or self-care (01) ==
LOC: TRNFUSION 14:12
PROVIDERS: Internal Medicine Hematology & Oncology
DX: D46.C Myelodysplastic syndrome with isolated del(5q) chromosomal abnormality (principal)

== ENCOUNTER 2017-03-24 18:28 | Inpatient (IN) | payer OTHER, MEDICAID ==
[~2017-03-24] VITALS: Ht 159 cm; Wt 61.9 kg
--- NOTE | ~2017-03-24 | PR ---
[place], [place] PROGRESS NOTE NAME: MARIA DEL CARMEN PLATA [facility] #: [id number] UNIT #: [id number] ROOM: 523 DOCTOR: DEEPALI LINDA MD BIRTHDATE: [birth year] DOS: 03/26/2017 SUBJECTIVE: The patient is doing better. She is awake, alert and responsive. REVIEW OF SYSTEMS: HEENT: No trouble swallowing. No double vision. No loss of vision. No pain. ENT AND RESPIRATORY: No wheeze. No change in voice. No cough. No shortness of breath. No coughing up blood. No epistaxis. CARDIOLOGIC: No chest pain. No dizziness. No irregular heartbeat. No leg edema. No palpitations. No shortness of breath. HEMATOLOGIC AND LYMPH: No past transfusion. No fatigue. No loss of appetite. No easy bruising. GASTROENEROLOGIC: No change in bowel habits. No vomiting blood. No abdominal cramping. No nausea. No vomiting. No diarrhea. No constipation. No blood in stool. FEMALE REPRODUCTIVE: No dyspareunia. No pelvic pain. MUSCULOSKELETAL: No back pain. No muscle pain or weakness. No tingling/numbness. UROLOGIC: No pain with urination. No difficulty urinating. No frequent urination. NEUROLOGIC: No burning pain in feet. No trouble with coordination. No loss of consciousness. No headache. No tingling/numbness. No memory loss. PHYSICAL EXAMINATION: GENERAL: Pleasant woman in no apparent distress. VITAL SIGNS: Blood pressure 123/86, respirations 20, pulse 98, temperature 98.8. HEENT: Normocephalic, atraumatic NECK AND THYROID: Supple. No JVD, thyromegaly or lymphadenopathy. HEART: Normal S1, S2. Regular rate and rhythm. LUNGS: Clear to auscultation and percussion. ABDOMEN: Soft. Nontender, nondistended. Bowel sounds present. EXTREMITIES: Normal ROM. No clubbing. No edema. LABORATORY DATA: Sodium 140, potassium 4.0, chloride 110, bicarbonate 22, EGFR is 36. White count of 2.9, hemoglobin 7.1, hematocrit 20.5, platelet count of 50,000. Blood culture showed gram-negative bacilli. ASSESSMENT: 1. Sepsis. 2. Neutropenic fever. 3. Myelodysplastic syndrome, -5q. 4. Pancytopenia secondary to myelodysplastic syndrome/chemotherapy. PLAN: The patient is on multiple antibiotics. She will be started on growth factors. After starting growth factors, expect the counts to improve. If not, then further transfusion on p.r.n. basis. Her hemoglobin is dropping; if it drops further, then transfusion. Ample time was given to the patient to ask me questions. [place], [place] PROGRESS NOTE NAME: MARIA DEL CARMEN PLATA UNIT #: [id number] ROOM: 523 DOCTOR: DEEPALI LINDA MD BIRTHDATE: [birth year] DEEPALI LINDA MD CM:PNTRANS [id number] DEEPALI LINDA MD 03/26/17 2243 interface
--- NOTE | ~2017-03-24 | PR ---
[place], [place] PROGRESS NOTE NAME: MARIA DEL CARMEN PLATA [facility] #: [id number] UNIT #: [id number] ROOM: 523 DOCTOR: DEEPALI LINDA MD BIRTHDATE: [birth year] DOS: 03/27/2017 SUBJECTIVE: The patient is doing better. She is awake and alert, feeling much better than before. REVIEW OF SYSTEMS HEENT: No trouble swallowing. No double vision. No loss of vision. No pain. ENT AND RESPIRATORY: No wheeze. No change in voice. No cough. No shortness of breath. No coughing up blood. No epistaxis. CARDIOLOGIC: No chest pain. No dizziness. No irregular heartbeat. No leg edema. No palpitations. No shortness of breath. HEMATOLOGIC AND LYMPH: No past transfusion. No fatigue. No loss of appetite. No easy bruising. GASTROENTEROLOGIC: No change in bowel habits. No vomiting blood. No abdominal cramping. No nausea. No vomiting. No diarrhea. No constipation. No blood in stool. FEMALE REPRODUCTIVE: No dyspareunia. No pelvic pain. MUSCULOSKELETAL: No back pain. No muscle pain or weakness. No tingling/numbness. UROLOGIC: No pain with urination. No difficulty urinating. No frequent urination. NEUROLOGIC: No burning pain in feet. No trouble with coordination. No loss of consciousness. No headache. No tingling/numbness. No memory loss. PHYSICAL EXAMINATION: GENERAL: She is a pleasant woman, in no apparent distress. VITAL SIGNS: Blood pressure 130/62, respiration rate 20, temperature 97.8, pulse 73. HEENT: Normocephalic, atraumatic NECK AND THYROID: Supple. No JVD, thyromegaly, or lymphadenopathy. HEART: Normal S1, S2. Regular rate and rhythm. LUNGS: Clear to auscultation and percussion. ABDOMEN: Soft. Nontender, nondistended. Bowel sounds present. EXTREMITIES: Normal ROM. No clubbing. No edema. LABORATORY DATA: White count of 5.2, hemoglobin 10.6, hematocrit 29.6, and platelet count of 41,000. Peripheral smear shows 1 metamyelocyte. No nucleated red cells. Sodium 140, potassium 4.1, chloride 110, bicarbonate 21, BUN 24, EGFR is 14, AST 10, and ALT 13. ASSESSMENT: 1. Neutropenic fever, resolving. 2. Pancytopenia. 3. Myelodysplastic syndrome -5q. PLAN: Platelets are getting better. She is status post platelet transfusion, hemoglobin and hematocrit stable. Does not have any fever. Continue growth factors for now. I had a detailed discussion with the patient about it, seemed to understand it. Ample time was given to the patient to ask me questions. [place], [place] PROGRESS NOTE NAME: MARIA DEL CARMEN PLATA [id number] UNIT #: [id number] ROOM: 523 DOCTOR: DEEPALI LINDA MD BIRTHDATE: [birth year] DEEPALI LINDA MD CM:PNTRANS 1400 12 DEEPALI LINDA MD 03/27/17 181 interface
--- NOTE | ~2017-03-24 | CON ---
[place], [place] REPORT OF CONSULTATION NAME: MARIA DEL CARMEN PLATA [facility] #: [id number] UNIT #: [id number] ROOM: 523 DOCTOR: DEEPALI LINDA MD BIRTHDATE: [birth year] DOS: 03/25/2017 HISTORY OF PRESENT ILLNESS: The patient is a pleasant 76-year-old woman. Family noted that she was lethargic, weak and confused. She was unable to get out of her chair without assistance and had not been eating well for a few months. Subsequently, she came to the Emergency Room and was found to be pancytopenic and admitted in consult for further evaluation and management. In the ER, she was treated with azithromycin and ceftriaxone. She was also noted to have neutropenic fever. RADIOLOGY: CT of the head with contrast showed no evidence of evolving major vascular territorial infarct or visualization of acute intracranial hemorrhage. Chest x-ray showed small right pleural effusion, which has resolved. PAST MEDICAL HISTORY: Myelodysplastic syndrome -5 q, pancytopenia, coronary artery disease, chronic diastolic CHF, CVA, depression, multiple TIAs, GERD, depression, hypertension, hyperlipidemia, hypothyroidism, neuropathy, overactive bladder, paroxysmal atrial fibrillation, right bundle branch block, retinopathy, stage 3 chronic kidney disease, stenosis of the left internal carotid artery, type 2 diabetes, insulin, and vitamin D deficiency. PAST SURGICAL HISTORY: Appendectomy, cataract surgery, hysterectomy, status post coronary artery stent placement in 2014. SOCIAL HISTORY: No smoking, drinking, or drug abuse. FAMILY HISTORY: Father in accident at a mill at age 22. Mother with gynae cancer, hypertension, and diabetes, at age 62. Brother with coronary artery disease, diabetes mellitus disease, at age 52. Brother with esophageal cancer, at age 40-50. Brother with brain and lung cancer, at 58. Sister with diabetes and kidney failure, at age 62. ALLERGIES: No allergies. MEDICATIONS: Acetaminophen, Lipitor, amlodipine, vitamin D, Tarceva, Imdur, Synthroid, Tradjenta, metoprolol, Flagyl, nitroglycerin, omeprazole, Zofran, Evista, Zoloft. REVIEW OF SYSTEMS: CONSTITUTIONAL: No chills. No fatigue. No fever. No loss of appetite. No night sweats. No weakness. No weight loss. HEENT: No trouble swallowing. No loss of smell. No loss of hearing. No double vision. No pain. No discharge. ENT AND RESPIRATORY: No wheeze. No sore throat. No change in voice. No hearing loss. No nose bleed. No cough. No trouble breathing through nose. No shortness of breath. No coughing up blood. No epistaxis. CARDIOVASCULAR: No chest pain. No dizziness. No irregular heartbeat. No leg edema. No pain in legs while walking. No palpitations. No shortness of breath. DERMATOLOGIC: No acne. No hives. No laceration. No mole. No rash. [place], [place] REPORT OF CONSULTATION [facility]: [id number]IT #: [id number] ROOM: 523 DOCTOR: DEEPALI LINDA MD BIRTHDATE: [birth year] ENDOCRINE: No cold intolerance. No diabetes. No fatigue. No hot flashes. No polydipsia. No polyuria. No urinating frequently. No weight loss. HEMATOLOGIC AND LYMPH: No fatigue. No easy bruising. GASTROENTEROLOGIC: No change in bowel habits. No indigestion. No frequent bloating. No vomiting blood. No abdominal cramping. No nausea. No heartburn. No vomiting. No abdominal pain. No dysphagia. No diarrhea. No constipation. No blood in stool. FEMALE REPRODUCTIVE: No vaginal itching. No difficulty urinating. No heavy periods. No dyspareunia. No sexually active. No dysmenorrhea. No pelvic pain. No breast pain. No nipple discharge. No abnormal vaginal discharge. No hot flashes. MUSCULOSKELETAL: No back pain. No muscle pain or weakness. No neck pain. No tingling/numbness. No swelling/bruising. No osteoporosis treatment. OPHTHALMOLOGIC: No double vision. No diminished vision. No loss of vision. UROLOGIC: No dysuria. No frequent nighttime urination. No irregular periods. No pain with urination. No difficulty urinating. No blood in urine. No frequent urination. No urinary incontinence. NEUROLOGIC: No loss of sensation in specific body area. No vertigo. No burning pain in feet. No trouble with balance. No trouble with coordination. No loss of consciousness. No loss of feeling/power. No confusion. No headache. No tingling/numbness. PSYCHOLOGIC: No tinnitus. No headaches. No shortness of breath. No weight decrease. No nausea. No vomiting. No abdominal discomfort. No constipation. No diarrhea. No depression. No anxiety. PHYSICAL EXAMINATION: GENERAL: She is a pleasant woman in no apparent distress. VITAL SIGNS: Blood pressure 121/48, respiration 18, pulse 91, and temperature 98.6, initially it was 102.7. HEENT: Oral mucosa appears intact. The external ears are normal in appearance. Nares are patent without lesions, exudates, erythema, or inflammation. Tongue is symmetrical. Uvula is midline. NECK AND THYROID: Neck supple without palpable masses. Trachea is midline. No thyromegaly. No carotid bruit or JVD. BREASTS: Normal. Nipples unremarkable. No drainage. No lumps felt on either side. HEART: Normal S1, S2, without significant murmur, rub, or gallop. LUNGS: Clear to auscultation and percussion with good air entry bilaterally. The patient is breathing easily without the use of accessory muscles. Diaphragmatic excursions are intact. ABDOMEN: No costovertebral angle tenderness. Soft. No organomegaly or masses. Nontender. No hernias present. Liver and spleen are not palpable. LYMPHATIC: No adenopathy noted in the cervical, supraclavicular, axillary, or inguinal regions. NEUROLOGIC: Nonfocal. Oriented to person, place, and time. MENTAL STATUS: Appropriate for mood and affect. PERIPHERAL PULSES: No varicosities. Femoral and pedal pulses are palpable. EXTREMITIES: Without cyanosis, clubbing, or edema. No gross anomalies. LABORATORY DATA: Sodium 131, potassium 4.4, chloride 97, bicarbonate 25, BUN is [place], [place] REPORT OF CONSULTATION NAME: MARIA DEL CARMEN PLATA UNIT #: [id number] ROOM: 523 DOCTOR: DEEPALI LINDA MD BIRTHDATE: [birth year] 49, EGFR is 24. White count of 1.5, hemoglobin 8.5, hematocrit 24.2, and platelet count of 21,000. ASSESSMENT: 1. Neutropenic fever. 2. Myelodysplastic syndrome. 3. 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 4. Possible sepsis. The patient was started on growth factors, neutropenic precautions, transfusion depending on the counts etc. I had a detailed discussion with the patient, who seemed to understand it. Ample time was given to the patient to ask me questions. We will follow. Thanks for consulting and letting me participate in the care of this interesting patient. DEEPALI LINDA MD CM:CONSTR:REPORT OF CONSULTATION 1151 03/25/17 1621 interface
[~2017-03-24 18:28] MED LIST changes: -NATURE'S BLEND F1 MG PO; -OMEPRAZOLE MAGN20 MG PO
[2017-03-24 18:30] VITALS: BP 152/50
[2017-03-24 19:23] LABS: HEMATOCRIT 24.2 % (37.0-47.0); HEMOGLOBIN 8.5 g/dl (12.0-16.0); MEAN CORPUSCULAR HGB 29.5 pg (27.0-31.0); MEAN CORPUSCULAR HGB CONC 35.1 g/dl (33.0-37.0); MEAN PLATELET VOLUME 11.9 fl (9.6-12.3); RED BLOOD COUNT 2.88 10*6/uL (4.10-5.10); RED CELL DISTRI WIDTH 13.4 % (0-14.5)
[2017-03-24 19:30] LABS: WHITE BLOOD COUNT 1.5 10*3/uL (4.8-10.8)
[2017-03-24 19:31] LABS: PLATELET COUNT AUTOMATED 21 10*3/uL (130-400)
[2017-03-24 19:41] LABS: ALBUMIN 2.6 gm/dl (3.1-4.5); CREATININE 1.98 mg/dL (0.55-1.02); POTASSIUM 4.4 mmol/L (3.5-5.1); TOTAL PROTEIN 5.9 gm/dL (6.4-8.2)
[2017-03-24 19:45] LABS: TROPONIN I 0.058 ng/ml (<0.045)
[2017-03-24 19:46] LABS: BURR CELLS FEW; PLATELET SUFFICIENCY LOW (NORMAL); TOTAL CELLS COUNTED 100 #CELLS
[2017-03-24 20:45] VITALS: BP 148/46
[2017-03-24 21:00] VITALS: BP 99/46
[2017-03-24] MEDS ORDERED: OMEPRAZOLE MAGN20 MG PO (21:41)
[2017-03-24] MEDS ORDERED: TRESIBA FL100 UNIT/1 SQ (21:42)
[2017-03-25] VITALS (10 sets, daily range): BP systolic 100–142; BP diastolic 41–64
[2017-03-25 06:05] LABS: HEMATOCRIT 20.8 % (37.0-47.0); HEMOGLOBIN 7.3 g/dl (12.0-16.0); MEAN CELL VOLUME 85.6 fl (81.0-99.0); MEAN CORPUSCULAR HGB CONC 35.1 g/dl (33.0-37.0); MEAN PLATELET VOLUME 11.8 fl (9.6-12.3); RED BLOOD COUNT 2.43 10*6/uL (4.10-5.10); RED CELL DISTRI WIDTH 13.6 % (0-14.5); WHITE BLOOD COUNT 2.8 10*3/uL (4.8-10.8)
[2017-03-25 06:16] LABS: CREATININE 1.76 mg/dL (0.55-1.02); PHOSPHOROUS 2.4 mg/dL (2.5-4.9); POTASSIUM 4.3 mmol/L (3.5-5.1)
[2017-03-25 06:21] LABS: TROPONIN I 0.051 ng/ml (<0.045)
[2017-03-25 06:31] LABS: ATYPICAL LYMPHS 1 % (0-0); PLATELET SUFFICIENCY LOW (NORMAL); TOTAL CELLS COUNTED 100 #CELLS
[2017-03-25 06:32] LABS: ACANTHOCYTES FEW; OVALOCYTES FEW; SCHISTOCYTES FEW
[2017-03-25 06:33] LABS: PLATELET COUNT AUTOMATED 17 10*3/uL (130-400)
[2017-03-25 10:57] LABS: BILIRUBIN NEGATIVE (NEGATIVE); BLOOD 1+ (NEGATIVE); CLARITY SL CLOUDY (CLEAR); COLOR YELLOW (YELLOW); GLUCOSE TRACE (NEGATIVE); KETONE NEGATIVE (NEGATIVE); LEUKO ESTERASE NEGATIVE (NEGATIVE); NITRITE POSITIVE (NEGATIVE); SPECIFIC GRAVITY 1.015 (1.005-1.030); UROBILINOGEN 0.2 E.U./dl (0.2-1.0)
[2017-03-25 11:11] LABS: BACTERIA 2+
[2017-03-26] VITALS: BP 97/54
[2017-03-26 07:00] LABS: HEMATOCRIT 20.5 % (37.0-47.0); HEMOGLOBIN 7.1 g/dl (12.0-16.0); MEAN CELL VOLUME 86.9 fl (81.0-99.0); MEAN CORPUSCULAR HGB 30.1 pg (27.0-31.0); MEAN CORPUSCULAR HGB CONC 34.6 g/dl (33.0-37.0); MEAN PLATELET VOLUME 10.3 fl (9.6-12.3); RED BLOOD COUNT 2.36 10*6/uL (4.10-5.10); RED CELL DISTRI WIDTH 14.2 % (0-14.5); WHITE BLOOD COUNT 2.9 10*3/uL (4.8-10.8)
[2017-03-26 07:04] LABS: PLATELET COUNT AUTOMATED 50 10*3/uL (130-400)
[2017-03-26 07:07] LABS: CREATININE 1.42 mg/dL (0.55-1.02); PHOSPHOROUS 3.1 mg/dL (2.5-4.9)
[2017-03-26 07:42] LABS: BURR CELLS MODERATE; PLATELET SUFFICIENCY LOW (NORMAL); ROULEAUX MODERATE; TOTAL CELLS COUNTED 100 #CELLS
[2017-03-26 08:00] VITALS: BP 123/86
[2017-03-26 12:00] VITALS: BP 120/88
[2017-03-26 16:00] VITALS: BP 118/44
[2017-03-26 20:00] VITALS: BP 136/48
[2017-03-26 23:30] VITALS: BP 146/48
[2017-03-27] VITALS (13 sets, daily range): BP systolic 89–146; BP diastolic 43–91
[2017-03-27 06:35] LABS: MEAN CELL VOLUME 85.8 fl (81.0-99.0); MEAN CORPUSCULAR HGB 30.7 pg (27.0-31.0); MEAN CORPUSCULAR HGB CONC 35.8 g/dl (33.0-37.0); MEAN PLATELET VOLUME 10.9 fl (9.6-12.3); PLATELET COUNT AUTOMATED 41 10*3/uL (130-400); RED BLOOD COUNT 3.45 10*6/uL (4.10-5.10); RED CELL DISTRI WIDTH 13.6 % (0-14.5); WHITE BLOOD COUNT 5.2 10*3/uL (4.8-10.8)
[2017-03-27 06:37] LABS: HEMATOCRIT 29.6 % (37.0-47.0); HEMOGLOBIN 10.6 g/dl (12.0-16.0)
[2017-03-27 07:05] LABS: ALBUMIN 2.3 gm/dl (3.1-4.5); CREATININE 1.3 mg/dL (0.55-1.02); POTASSIUM 4.1 mmol/L (3.5-5.1); TOTAL PROTEIN 5.7 gm/dL (6.4-8.2)
[2017-03-27 07:23] LABS: PLATELET SUFFICIENCY LOW (NORMAL); TOTAL CELLS COUNTED 100 #CELLS
[2017-03-27 07:24] LABS: ACANTHOCYTES FEW; BURR CELLS MODERATE
[2017-03-28] VITALS: BP 138/62
[2017-03-28 06:23] LABS: HEMATOCRIT 29.4 % (37.0-47.0); HEMOGLOBIN 10.2 g/dl (12.0-16.0); MEAN CELL VOLUME 85.5 fl (81.0-99.0); MEAN CORPUSCULAR HGB 29.7 pg (27.0-31.0); MEAN CORPUSCULAR HGB CONC 34.7 g/dl (33.0-37.0); PLATELET COUNT AUTOMATED 33 10*3/uL (130-400); RED BLOOD COUNT 3.44 10*6/uL (4.10-5.10); RED CELL DISTRI WIDTH 14.5 % (0-14.5); WHITE BLOOD COUNT 4.4 10*3/uL (4.8-10.8)
[2017-03-28 06:53] LABS: ALBUMIN 2.3 gm/dl (3.1-4.5); POTASSIUM 4.1 mmol/L (3.5-5.1)
[2017-03-28 06:56] LABS: CREATININE 1.26 mg/dL (0.55-1.02); TOTAL PROTEIN 5.8 gm/dL (6.4-8.2)
[2017-03-28 07:28] LABS: BASOPHILS 1 % (0-1); PLATELET SUFFICIENCY LOW (NORMAL); ROULEAUX SLIGHT; SCHISTOCYTES FEW; TOTAL CELLS COUNTED 100 #CELLS
[2017-03-28 08:00] VITALS: BP 127/90
[2017-03-28 12:00] VITALS: BP 128/89
[2017-03-28] MEDS ORDERED: NATURE'S BLEND F1 MG PO (14:23)
[2017-03-28] MEDS ORDERED: CIPRO500 MG PO (14:24)
== END 2017-03-28 16:32 | disposition home health service (06) | DRG 871 ==
LOC: ED 18:28 → 5E 20:23 → EDHOLD 20:23 → 5E 20:34
PROVIDERS: Internal Medicine; Nurse Practitioner Family; Student in an Organized Health Care Education/Training Program
PROC: 30233N1 Transfusion of Nonautologous Red Blood Cells into Peripheral Vein, Percutaneous Approach (ICD-10-PCS; 2017-03-25)
PROC: 30233R1 Transfusion of Nonautologous Platelets into Peripheral Vein, Percutaneous Approach (ICD-10-PCS; principal; 2017-03-26)
DX: A41.52 Sepsis due to Pseudomonas (principal); G93.41 Metabolic encephalopathy; N17.0 Acute kidney failure with tubular necrosis; E43 Unspecified severe protein-calorie malnutrition; D61.810 Antineoplastic chemotherapy induced pancytopenia; J18.9 Pneumonia, unspecified organism; E11.22 Type 2 diabetes mellitus with diabetic chronic kidney disease; E11.40 Type 2 diabetes mellitus with diabetic neuropathy, unspecified; D46.C Myelodysplastic syndrome with isolated del(5q) chromosomal abnormality; I13.0 Hypertensive heart and chronic kidney disease with heart failure and stage 1 through stage 4 chronic kidney disease, or unspecified chronic kidney disease; I50.32 Chronic diastolic (congestive) heart failure; E87.1 Hypo-osmolality and hyponatremia; K57.32 Diverticulitis of large intestine without perforation or abscess without bleeding; R65.20 Severe sepsis without septic shock; E11.65 Type 2 diabetes mellitus with hyperglycemia; I48.0 Paroxysmal atrial fibrillation; N18.3 Chronic kidney disease, stage 3 (moderate); K21.9 Gastro-esophageal reflux disease without esophagitis; Z66 Do not resuscitate; Z51.5 Encounter for palliative care; E83.39 Other disorders of phosphorus metabolism; R50.81 Fever presenting with conditions classified elsewhere; R74.8 Abnormal levels of other serum enzymes; N32.81 Overactive bladder; E11.319 Type 2 diabetes mellitus with unspecified diabetic retinopathy without macular edema; I25.10 Atherosclerotic heart disease of native coronary artery without angina pectoris; E78.5 Hyperlipidemia, unspecified; E03.9 Hypothyroidism, unspecified; I08.0 Rheumatic disorders of both mitral and aortic valves; R00.0 Tachycardia, unspecified; F32.9 Major depressive disorder, single episode, unspecified; Z83.3 Family history of diabetes mellitus; Z84.1 Family history of disorders of kidney and ureter; Z79.4 Long term (current) use of insulin; Z80.1 Family history of malignant neoplasm of trachea, bronchus and lung; Z80.0 Family history of malignant neoplasm of digestive organs; Z80.8 Family history of malignant neoplasm of other organs or systems; Z90.710 Acquired absence of both cervix and uterus; Z82.49 Family history of ischemic heart disease and other diseases of the circulatory system; I25.2 Old myocardial infarction; Z79.82 Long term (current) use of aspirin; Z98.49 Cataract extraction status, unspecified eye; Z68.27 Body mass index [BMI] 27.0-27.9, adult; K52.9 Noninfective gastroenteritis and colitis, unspecified

== ENCOUNTER → 2017-04-08 | Outpatient (CLI) | payer OTHER, MEDICAID ==
[2017-04-08] VITALS (7 sets, daily range): BP systolic 124–135; BP diastolic 41–71
[~2017-04-08] MED LIST changes: +NATURE'S BLEND F1 MG PO; +OMEPRAZOLE MAGN20 MG PO
== END | disposition home or self-care (01) ==
LOC: TRNFUSION 01:36
DX: D46.C Myelodysplastic syndrome with isolated del(5q) chromosomal abnormality (principal)

== ENCOUNTER → 2017-04-17 | Outpatient (CLI) | payer OTHER, MEDICAID ==
[2017-04-17 09:30] VITALS: BP 146/42
[2017-04-17 10:45] VITALS: BP 145/49
== END | disposition home or self-care (01) ==
LOC: TRNFUSION 02:11
DX: D46.C Myelodysplastic syndrome with isolated del(5q) chromosomal abnormality (principal)

== ENCOUNTER 2017-05-11 19:14 | Inpatient (IN) | payer OTHER, MEDICAID ==
[2017-05-11] VITALS (7 sets, daily range): BP systolic 130–160; BP diastolic 46–60
[~2017-05-11] VITALS: Ht 157.4 cm; Wt 59.1 kg
--- NOTE | ~2017-05-11 | CON ---
[place], [place] REPORT OF CONSULTATION NAME: MARIA DEL CARMEN PLATA [facility] #: [id number] UNIT #: [id number] ROOM: 522 DOCTOR: DEEPALI LINDA MD BIRTHDATE: [birth year] DOS: 05/12/2017 HISTORY OF PRESENT ILLNESS: The patient is a pleasant 76-year-old [place] woman with a history of myelodysplastic syndrome. Routine CBC examination found to have platelets of less than 10,000 and anemia, subsequently advised for transfusion and consulted for further evaluation and management. PAST MEDICAL HISTORY: Significant for myelodysplastic syndrome, history of frequent transfusions, coronary artery disease, chronic diastolic CHF, CVA, depression, GERD, NV, hypertension, TIAs, hyperlipidemia, hypothyroidism, metabolic encephalopathy, neuropathy, atrial fibrillation, right bundle-branch block, retinopathy, severe protein calorie malnutrition state, coronary artery disease, stenosis of the left internal carotid artery, type 2 diabetes. PAST SURGICAL HISTORY: Appendectomy, cataract surgery, hysterectomy, and coronary artery stent placement. SOCIAL HISTORY: No smoking, drinking, or drug abuse. FAMILY HISTORY: Father at age 22. Mother had gyneic cancer, hypertension, diabetes, coronary artery disease, at age 52. Brother, coronary artery disease, diabetes disease at 52. Brother, esophageal cancer. Brother with brain and lung cancer, diseased at 58. Sister, diabetes, kidney failure. ALLERGIES: No allergies. MEDICATIONS: Acetaminophen, amlodipine, atorvastatin, vitamin D, folic acid, insulin, isosorbide, levothyroxine, Linagliptin, metoprolol, nitroglycerin, omeprazole, Zofran, Raloxifene and ____. REVIEW OF SYSTEMS: CONSTITUTIONAL: No chills. No fatigue. No fever. No loss of appetite. No night sweats. No weakness. No weight loss. HEENT: No trouble swallowing. No loss of smell. No loss of hearing. No double vision. No pain. No discharge. ENT AND RESPIRATORY: No wheeze. No sore throat. No change in voice. No hearing loss. No nose bleed. No cough. No trouble breathing through nose. No shortness of breath. No coughing up blood. No epistaxis. CARDIOVASCULAR: No chest pain. No dizziness. No irregular heartbeat. No leg edema. No pain in legs while walking. No palpitations. No shortness of breath. DERMATOLOGIC: No acne. No hives. No laceration. No mole. No rash. ENDOCRINE: No cold intolerance. No diabetes. No fatigue. No hot flashes. No polydipsia. No polyuria. No urinating frequently. No weight loss. HEMATOLOGIC AND LYMPH: No fatigue. No easy bruising. GASTROENTEROLOGIC: No change in bowel habits. No indigestion. No frequent bloating. No vomiting blood. No abdominal cramping. No nausea. No heartburn. No vomiting. No abdominal pain. No dysphagia. No diarrhea. No constipation. No blood in stool. FEMALE REPRODUCTIVE: No vaginal itching. No difficulty urinating. No heavy [place], [place] REPORT OF CONSULTATION NAME: MARIA DEL CARMEN PLATA UNIT #: [id number] ROOM: 2 DOCTOR: DEEPALI LINDA MD BIRTHDATE: [birth year] periods. No dyspareunia. No sexually active. No dysmenorrhea. No pelvic pain. No breast pain. No nipple discharge. No abnormal vaginal discharge. No hot flashes. MUSCULOSKELETAL: No back pain. No muscle pain or weakness. No neck pain. No tingling/numbness. No swelling/bruising. No osteoporosis treatment. OPTHALMOLOGIC: No double vision. No diminished vision. No loss of vision. UROLOGIC: No dysuria. No frequent nighttime urination. No irregular periods. No pain with urination. No difficulty urinating. No blood in urine. No frequent urination. No urinary incontinence. NEUROLOGIC: No loss of sensation in specific body area. No vertigo. No burning pain in feet. No trouble with balance. No trouble with coordination. No loss of consciousness. No loss of feeling/power. No confusion. No headache. No tingling/numbness. PSYCHOLOGIC: No tinnitus. No headaches. No shortness of breath. No weight decrease. No nausea. No vomiting. No abdominal discomfort. No constipation. No diarrhea. No depression. No anxiety. PHYSICAL EXAMINATION: GENERAL: She is a pleasant woman in no acute distress. VITAL SIGNS: Stable. Blood pressure ____, respiration 18, pulse 67, temperature 98.6. HEENT: Oral mucosa appears intact. The external ears are normal in appearance. Nares are patent without lesions, exudates, erythema, or inflammation. Tongue is symmetrical. Uvula is midline. NECK AND THYROID: Neck supple without palpable masses. Trachea is midline. No thyromegaly. No carotid bruit or JVD. BREASTS: Normal. Nipples unremarkable. No drainage. No lumps felt on either side. HEART: Normal S1, S2, without significant murmur, rub, or gallop. LUNGS: Clear to auscultation and percussion with good air entry bilaterally. The patient is breathing easily without the use of accessory muscles. Diaphragmatic excursions are intact. ABDOMEN: No costovertebral angle tenderness. Soft. No organomegaly or masses. Nontender. No hernias present. Liver and spleen are not palpable. LYMPHATIC: No adenopathy noted in the cervical, supraclavicular, axillary, or inguinal regions. NEUROLGIC: Nonfocal. Oriented to person, place, and time. MENTAL STATUS: Appropriate for mood and affect. PERIPHERAL PULSES: No varicosities. Femoral and pedal pulses are palpable. EXTREMITIES: Without cyanosis, clubbing, or edema. No gross anomalies. LABORATORY DATA: Sodium 136, potassium 4.4, chloride 102, bicarbonate 26, EGFR 39. White count of 1.6, hemoglobin 7.2, hematocrit 21.7, platelet count 8000. ASSESSMENT: 1. Myelodysplastic syndrome. 2. Pancytopenia secondary to myelodysplastic syndrome/chemo. 3. Leukopenia. PLAN: The patient will be getting platelets and packed RBC depending on the [place], [place] REPORT OF CONSULTATION NAME: MARIA DEL CARMEN PLATA UNIT #: [id number] ROOM: 522 DOCTOR: DEEPALI LINDA MD BIRTHDATE: [birth year] further intervention, discussed. We will follow. Thanks for consulting and letting me participate in the care of this interesting patient. DEEPALI LINDA MD CM:CONSTR:REPORT OF CONSULTATION 1401 05/13/17 0312 interface
[2017-05-11 20:57] LABS: HEMATOCRIT 21.7 % (37.0-47.0); HEMOGLOBIN 7.2 g/dl (12.0-16.0); MEAN CELL VOLUME 88.2 fl (81.0-99.0); MEAN CORPUSCULAR HGB 29.3 pg (27.0-31.0); MEAN CORPUSCULAR HGB CONC 33.2 g/dl (33.0-37.0); MEAN PLATELET VOLUME 15.4 fl (9.6-12.3); RED BLOOD COUNT 2.46 10*6/uL (4.10-5.10); RED CELL DISTRI WIDTH 12.7 % (0-14.5)
[2017-05-11 21:14] LABS: ALBUMIN 2.6 gm/dl (3.1-4.5); CREATININE 1.58 mg/dL (0.55-1.02); POTASSIUM 4.4 mmol/L (3.5-5.1); TOTAL PROTEIN 5.7 gm/dL (6.4-8.2)
[2017-05-11 21:20] LABS: PLATELET COUNT AUTOMATED 8 10*3/uL (130-400); WHITE BLOOD COUNT 1.6 10*3/uL (4.8-10.8)
[2017-05-11 21:24] LABS: ACT PARTIAL THROMBO TIME 24.6 SECONDS (20.8-31.5); INTERNATIONAL NORM RATIO 1.1 (2.0-3.5)
[2017-05-11 21:46] LABS: BASOPHILS 2 % (0-1); TOTAL CELLS COUNTED 100 #CELLS
[2017-05-11 21:47] LABS: PLATELET SUFFICIENCY LOW (NORMAL)
[2017-05-12] VITALS (16 sets, daily range): BP systolic 131–163; BP diastolic 39–61
[2017-05-12 06:26] LABS: HEMATOCRIT 20.3 % (37.0-47.0); HEMOGLOBIN 6.8 g/dl (12.0-16.0); MEAN CELL VOLUME 87.9 fl (81.0-99.0); MEAN CORPUSCULAR HGB 29.4 pg (27.0-31.0); MEAN CORPUSCULAR HGB CONC 33.5 g/dl (33.0-37.0); MEAN PLATELET VOLUME 10.2 fl (9.6-12.3); RED BLOOD COUNT 2.31 10*6/uL (4.10-5.10); RED CELL DISTRI WIDTH 12.7 % (0-14.5)
[2017-05-12 06:28] LABS: PLATELET COUNT AUTOMATED 43 10*3/uL (130-400)
[2017-05-12 06:31] LABS: ALBUMIN 2.6 gm/dl (3.1-4.5); CREATININE 1.56 mg/dL (0.55-1.02); PHOSPHOROUS 3.7 mg/dL (2.5-4.9); POTASSIUM 4.2 mmol/L (3.5-5.1); TOTAL PROTEIN 5.8 gm/dL (6.4-8.2)
[2017-05-12 06:37] LABS: THYROID STIM HORMONE (HS) 1.91 uIU/ml (0.358-4.75)
[2017-05-12 07:01] LABS: PLATELET SUFFICIENCY LOW (NORMAL); POLYCHROMASIA SLIGHT; TOTAL CELLS COUNTED 100 #CELLS
[2017-05-12 07:03] LABS: WHITE BLOOD COUNT 1.4 10*3/uL (4.8-10.8)
[2017-05-12 07:40] LABS: VITAMIN D, 25-HYDROXY 52.7 ng/mL (30-100)
[2017-05-12 12:52] LABS: BILIRUBIN NEGATIVE (NEGATIVE); BLOOD 3+ (NEGATIVE); CLARITY SL CLOUDY (CLEAR); COLOR YELLOW (YELLOW); GLUCOSE TRACE (NEGATIVE); KETONE NEGATIVE (NEGATIVE); LEUKO ESTERASE TRACE (NEGATIVE); NITRITE NEGATIVE (NEGATIVE); UROBILINOGEN 0.2 E.U./dl (0.2-1.0)
[2017-05-12 13:23] LABS: BACTERIA 2+; RBC 21-30 rbc/hpf (0-2); WBC TNTC wbc/hpf (0-5)
[2017-05-12] MEDS ORDERED: DOXYCYCLINE100 M3 PO (15:57)
== END 2017-05-12 20:05 | disposition home or self-care (01) | DRG 808 ==
LOC: ED 19:14 → EDHOLD 22:14 → 5E 22:14
PROVIDERS: Internal Medicine; Student in an Organized Health Care Education/Training Program
PROC: 30233R1 Transfusion of Nonautologous Platelets into Peripheral Vein, Percutaneous Approach (ICD-10-PCS; principal; 2017-05-11)
PROC: 30233N1 Transfusion of Nonautologous Red Blood Cells into Peripheral Vein, Percutaneous Approach (ICD-10-PCS; 2017-05-12)
DX: D61.810 Antineoplastic chemotherapy induced pancytopenia (principal); E43 Unspecified severe protein-calorie malnutrition; E11.22 Type 2 diabetes mellitus with diabetic chronic kidney disease; E11.40 Type 2 diabetes mellitus with diabetic neuropathy, unspecified; I48.0 Paroxysmal atrial fibrillation; E11.65 Type 2 diabetes mellitus with hyperglycemia; I50.32 Chronic diastolic (congestive) heart failure; I13.0 Hypertensive heart and chronic kidney disease with heart failure and stage 1 through stage 4 chronic kidney disease, or unspecified chronic kidney disease; D46.C Myelodysplastic syndrome with isolated del(5q) chromosomal abnormality; F33.9 Major depressive disorder, recurrent, unspecified; I45.2 Bifascicular block; E78.5 Hyperlipidemia, unspecified; E03.9 Hypothyroidism, unspecified; E11.319 Type 2 diabetes mellitus with unspecified diabetic retinopathy without macular edema; E55.9 Vitamin D deficiency, unspecified; K21.9 Gastro-esophageal reflux disease without esophagitis; D63.8 Anemia in other chronic diseases classified elsewhere; N18.3 Chronic kidney disease, stage 3 (moderate); I25.10 Atherosclerotic heart disease of native coronary artery without angina pectoris; N32.81 Overactive bladder; Z87.440 Personal history of urinary (tract) infections; Z86.73 Personal history of transient ischemic attack (TIA), and cerebral infarction without residual deficits; I25.2 Old myocardial infarction; Z79.4 Long term (current) use of insulin; Z90.89 Acquired absence of other organs; Z90.710 Acquired absence of both cervix and uterus; Z95.5 Presence of coronary angioplasty implant and graft; Z98.49 Cataract extraction status, unspecified eye; Z83.3 Family history of diabetes mellitus; Z82.49 Family history of ischemic heart disease and other diseases of the circulatory system; Z80.1 Family history of malignant neoplasm of trachea, bronchus and lung; Z80.8 Family history of malignant neoplasm of other organs or systems; Z80.0 Family history of malignant neoplasm of digestive organs; Z84.1 Family history of disorders of kidney and ureter; Z79.899 Other long term (current) drug therapy; Z68.23 Body mass index [BMI] 23.0-23.9, adult; Z92.21 Personal history of antineoplastic chemotherapy

== ENCOUNTER → 2017-05-19 | Outpatient (CLI) | payer OTHER, MEDICAID ==
[~2017-05-19] MED LIST changes: +DOXYCYCLINE100 M3 PO
[2017-05-19 09:30] VITALS: BP 144/42
[2017-05-19 11:20] VITALS: BP 158/51
[2017-05-19 12:54] LABS: MEAN CELL VOLUME 85.1 fl (81.0-99.0); MEAN CORPUSCULAR HGB 28.4 pg (27.0-31.0); MEAN CORPUSCULAR HGB CONC 33.3 g/dl (33.0-37.0); MEAN PLATELET VOLUME 7.3 fl (9.6-12.3); RED BLOOD COUNT 2.82 10*6/uL (4.10-5.10); RED CELL DISTRI WIDTH 12.3 % (0-14.5)
[2017-05-19 12:57] LABS: PLATELET COUNT AUTOMATED 47 10*3/uL (130-400)
[2017-05-19 13:14] LABS: BASOPHILS 1 % (0-1); PLATELET SUFFICIENCY LOW (NORMAL); POLYCHROMASIA SLIGHT; TOTAL CELLS COUNTED 100 #CELLS
[2017-05-19 13:16] LABS: WHITE BLOOD COUNT 1.2 10*3/uL (4.8-10.8)
== END | disposition home or self-care (01) ==
LOC: TRNFUSION 07:36
PROVIDERS: Internal Medicine Hematology & Oncology
DX: D46.C Myelodysplastic syndrome with isolated del(5q) chromosomal abnormality (principal)

== ENCOUNTER 2017-05-20 11:36 | Inpatient (IN) | payer OTHER, MEDICAID ==
[~2017-05-20] VITALS: Ht 157.4 cm; Wt 61.9 kg
[2017-05-20] VITALS (7 sets, daily range): BP systolic 148–179; BP diastolic 38–68
--- NOTE | ~2017-05-20 | PR ---
[place], [place] PROGRESS NOTE NAME: MARIA DEL CARMEN PLATA [facility] #: [id number] UNIT #: [id number] ROOM: 426 DOCTOR: DEEPALI LINDA MD BIRTHDATE: [birth year] DOS: 05/27/2017 SUBJECTIVE: The patient is doing better. She is awake, alert and responsive. Yesterday, she talked to me about going to [facility] because of kidney problems and I encouraged her to go ____. She is thinking about this at this time. REVIEW OF SYSTEMS HEENT: No trouble swallowing. No double vision. No loss of vision. No pain. ENT AND RESPIRATORY: No wheeze. No change in voice. No cough. No shortness of breath. No coughing up blood. No epistaxis. CARDIOLOGIC: No chest pain. No dizziness. No irregular heartbeat. No leg edema. No palpitations. No shortness of breath. HEMATOLOGIC AND LYMPH: No past transfusion. No fatigue. No loss of appetite. No easy bruising. GASTROENTEROLOGIC: No change in bowel habits. No vomiting blood. No abdominal cramping. No nausea. No vomiting. No diarrhea. No constipation. No blood in stool. FEMALE REPRODUCTIVE: No dyspareunia. No pelvic pain. MUSCULOSKELETAL: No back pain. No muscle pain or weakness. No tingling/numbness. UROLOGIC: No pain with urination. No difficulty urinating. No frequent urination. NEUROLOGIC: No burning pain in feet. No trouble with coordination. No loss of consciousness. No headache. No tingling/numbness. No memory loss. PHYSICAL EXAMINATION: GENERAL: She is a pleasant woman, in no apparent distress. VITAL SIGNS: Blood pressure 150/40, respiration 20, pulse 82, and temperature 98.2. HEENT: Normocephalic, atraumatic NECK AND THYROID: Supple. No JVD, thyromegaly, or lymphadenopathy. HEART: Normal S1, S2. Regular rate and rhythm. LUNGS: Clear to auscultation and percussion. ABDOMEN: Soft. Nontender, nondistended. Bowel sounds present. EXTREMITIES: Normal ROM. No clubbing. No edema. LABORATORY DATA: Sodium 137, potassium 3.3, chloride 105, bicarbonate 20, EGFR is 11. Fibrinogen is 309. D-dimer was more than 35. White count 2.1, hemoglobin 6.8, hematocrit 19.9, and platelet count of 14,000. Blood cultures ordered. RADIOLOGIC DATA: Ultrasound of the lower extremity shows no evidence of DVT within the bilateral lower extremity. ASSESSMENT: 1. Acute diverticulitis. 2. Myelodysplastic syndrome ____ with pancytopenia. 3. Chronic kidney disease, stage 4. 4. 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 [place], [place] PROGRESS NOTE NAME: MARIA DEL CARMEN PLATA UNIT #: [id number] ROOM: 426 DOCTOR: DEEPALI LINDA MD BIRTHDATE: [birth year] PLAN: The patient is start growth factors. Counts are getting better. She will be also giving 2 units of packed RBC. The patient is deciding about going to [facility]. Depending upon the workup, further intervention discussed. Her platelets are 14,000. She will get platelets. Agree with the plan. DEEPALI LINDA MD CM:PNTRANS [id number] DEEPALI LINDA MD 05/27/17 8659 interface
--- NOTE | ~2017-05-20 | CON ---
[place], [place] REPORT OF CONSULTATION NAME: MARIA DEL CARMEN PLATA [facility] #: [id number] UNIT #: [id number] ROOM: 426 DOCTOR: DEEPALI LINDA MD BIRTHDATE: [birth year] DOS: 05/22/2017 HISTORY OF PRESENT ILLNESS: The patient is a pleasant 76-year-old woman, who was upstairs with Dr. Jeter and EGD performed. She started having abdominal pain after platelet infusion and the pain was diffused without radiation and did not improve. She was admitted as a history of myelodysplastic syndrome, has been getting multiple transfusions, and consulted for further evaluation and management. PAST MEDICAL HISTORY: Significant for myelodysplastic syndrome -5q., history of anemia of chronic disease, coronary artery disease, chronic diastolic congestive heart failure, severe depression, elevated alkaline phosphatase, GERD, history of myocardial infarction, hypertension, TIAs, hyperglycemia, hyperlipidemia, hypothyroidism, leukopenia, neuropathy, overactive bladder, paroxysmal atrial fibrillation, right bundle branch block, retinopathy, severe protein-calorie malnutrition, stage 3 chronic kidney disease, stenosis of the left internal carotid artery, and thrombocytopenia. PAST SURGICAL HISTORY: Appendectomy, cataract surgery, hysterectomy, status post coronary stent placement, and permanent catheter. SOCIAL HISTORY: No smoking, drinking, or drug use. FAMILY HISTORY: Father in an accident at a mill at age 22. Mother had a gynae cancer, hypertension, diabetes, coronary artery disease, at age 62 of cancer. Brother had coronary artery disease and diabetes, at age 52. Brother had esophageal cancer, at the age 40-50. Brother had brain and lung cancer, at age 58, sister had diabetes and kidney failure, at age 62. ALLERGIES: No allergies. MEDICATIONS: Tylenol, amlodipine besylate, Lipitor, vitamin D, folic acid, insulin, isosorbide, levothyroxine, Tradjenta, omeprazole, Zofran, Evista, and Zoloft. REVIEW OF SYSTEMS: CONSTITUTIONAL: No chills. No fatigue. No fever. No loss of appetite. No night sweats. No weakness. No weight loss. HEENT: No trouble swallowing. No loss of smell. No loss of hearing. No double vision. No pain. No discharge. ENT AND RESPIRATORY: No wheeze. No sore throat. No change in voice. No hearing loss. No nose bleed. No cough. No trouble breathing through nose. No shortness of breath. No coughing up blood. No epistaxis. CARDIOVASCULAR: No chest pain. No dizziness. No irregular heartbeat. No leg edema. No pain in legs while walking. No palpitations. No shortness of breath. DERMATOLOGIC: No acne. No hives. No laceration. No mole. No rash. ENDOCRINE: No cold intolerance. No diabetes. No fatigue. No hot flashes. No polydipsia. No polyuria. No urinating frequently. No weight loss. [place], [place] REPORT OF CONSULTATION NAME: MARIA DEL CARMEN PLATA UNIT #: [id number] ROOM: 426 DOCTOR: DEEPALI LINDA MD BIRTHDATE: [birth year] HEMATOLOGIC AND LYMPH: No fatigue. No easy bruising. GASTROENTEROLOGIC: She complain of abdominal pain with appetite loss; though, no nausea or vomiting. FEMALE REPRODUCTIVE: No vaginal itching. No difficulty urinating. No heavy periods. No dyspareunia. No sexually active. No dysmenorrhea. No pelvic pain. No breast pain. No nipple discharge. No abnormal vaginal discharge. No hot flashes. MUSCULOSKELETAL: No back pain. No muscle pain or weakness. No neck pain. No tingling/numbness. No swelling/bruising. No osteoporosis treatment. OPHTHALMOLOGIC: No double vision. No diminished vision. No loss of vision. UROLOGIC: No dysuria. No frequent nighttime urination. No irregular periods. No pain with urination. No difficulty urinating. No blood in urine. No frequent urination. No urinary incontinence. NEUROLOGIC: No loss of sensation in specific body area. No vertigo. No burning pain in feet. No trouble with balance. No trouble with coordination. No loss of consciousness. No loss of feeling/power. No confusion. No headache. No tingling/numbness. PSYCHOLOGIC: No tinnitus. No headaches. No shortness of breath. No weight decrease. No nausea. No vomiting. No abdominal discomfort. No constipation. No diarrhea. No depression. No anxiety. PHYSICAL EXAMINATION: GENERAL: A pleasant woman in no apparent distress. VITAL SIGNS: Stable. She is afebrile. HEENT: Oral mucosa appears intact. The external ears are normal in appearance. Nares are patent without lesions, exudates, erythema, or inflammation. Tongue is symmetrical. Uvula is midline. NECK AND THYROID: Neck supple without palpable masses. Trachea is midline. No thyromegaly. No carotid bruit or JVD. BREASTS: Normal. Nipples unremarkable. No drainage. No lumps felt on either side. HEART: Normal S1, S2, without significant murmur, rub, or gallop. LUNGS: Clear to auscultation and percussion with good air entry bilaterally. The patient is breathing easily without the use of accessory muscles. Diaphragmatic excursions are intact. ABDOMEN: Soft and mildly tender, but no rebound or guarding. LYMPHATIC: No adenopathy noted in the cervical, supraclavicular, axillary, or inguinal regions. NEUROLOGIC: Nonfocal. Oriented to person, place, and time. MENTAL STATUS: Appropriate for mood and affect. PERIPHERAL PULSES: No varicosities. Femoral and pedal pulses are palpable. EXTREMITIES: Without cyanosis, clubbing, or edema. No gross anomalies. LABORATORY DATA:: White count of 0.8, hemoglobin of 6.7, hematocrit 20.1, and platelet count of 8000. ANC of 300. Glucose 115. EGFR 18. Sodium 138, potassium 3.8, chloride 105, and total protein 5.6. ASSESSMENT: 1. Myelodysplastic syndrome. 2. Acute diverticulitis. [place], [place] REPORT OF CONSULTATION [id number] #: [id number] ROOM: 426 DOCTOR: DEEPALI LINDA MD BIRTHDATE: [birth year] 3. Severe sepsis with gram-positive bacteremia. 4. Pancytopenia. PLAN: The patient reported neutropenic precautions, on broad-spectrum antibiotics. Start growth factors. Transfusion for platelets as well as packed RBCs depending on the further intervention. In the meantime, continue broad-spectrum antibiotics. I had a detailed discussion with the patient about it, seemed to understand it. Ample time was given to the patient to ask me questions. DEEPALI LINDA MD CM:CONSTR:REPORT OF CONSULTATION 1441 05/23/17 0151 interface
--- NOTE | ~2017-05-20 | PR ---
[place], [place] PROGRESS NOTE NAME: MARIA DEL CARMEN PLATA UNIT #: [id number] ROOM: 426 DOCTOR: SWATHI ANNE MD BIRTHDATE: [birth year] DOS: 05/24/2017 SUBJECTIVE: The patient is very well known to me. The patient was seen by Dr. Ryan, who was covering me this weekend. The patient appears to be comfortable. Her vital signs, blood pressure is 140/60, heart rate is 77. She is afebrile at 98.2. The patient has paroxysmal atrial fibrillation. The patient admitted with diverticulitis. The patient also has low platelet count and being untreated. Dr. Jeter is seeing her for diverticulitis. The patient denies any chest discomfort. Heart rate is very well controlled with atrial fibrillation. No nausea, no vomiting, diarrhea, or lightheadedness. She is awake, alert, and responsive. The patient is still wheezing with significant shortness of breath. REVIEW OF SYSTEMS: She has shortness of breath and abdominal pain. No nausea, no vomiting. No chest discomfort. OBJECTIVE: VITAL SIGNS: Pressure today is 130/70 as mentioned. Heart rate is irregularly irregular. NECK: Supple, no JVD. LUNGS: Diminished air entry. HEART: Sounds are irregular. No edema. ABDOMEN: Soft, positive bowel sounds. NEUROLOGIC: Stable. Bilateral peripheral neuropathy. LABORATORY DATA: Sodium 138, potassium 3.9, creatinine is 3.3. Hemoglobin 9.3 and hematocrit 27.4. IMPRESSION: Acute diverticulitis, septicemia, leukopenia, anemia, chronic kidney disease, and history of atrial fibrillation. PLAN: Continue the present medications. No evidence of acute coronary syndrome at this point. Continue to follow. Monitor the heart rate and blood pressure very closely. Today, the hemoglobin is 8.7, hematocrit 25.9, creatinine is 3.3, which is elevated. The patient does have chronic kidney disease. The patient is already on metoprolol 50 mg daily, Lasix 20 mg daily, and Cardizem 120 daily. Continue the respiratory treatments and we will follow up. [place], [place] PROGRESS NOTE NAME: MARIA DEL CARMEN PLATA UNIT #: [id number] ROOM: 426 DOCTOR: SWATHI ANNE MD BIRTHDATE: [birth year] SWATHI ANNE MD CM:PNTRANS 2 3 SWATHI ANNE MD 05/26/17803 interface
--- NOTE | ~2017-05-20 | CON ---
[place], [place] REPORT OF CONSULTATION [id number] #: [id number] ROOM: 426 DOCTOR: URIEL FARLEY [facility] BIRTHDATE: [birth year] DOS: 05/24/2017 I am seeing the patient for Dr. Mann. I examined the patient and reviewed information. Dr. Mann will see the patient within a day or 2. I am covering him for the weekend. HISTORY OF PRESENT ILLNESS: The patient came in with some abdominal pain. The patient also has paroxysmal atrial fibrillation with very rapid ventricular response. The patient has a low platelet count and even being treated. The patient is also on chemotherapy. Dr. Jeter is seeing her for diverticulitis. He is supposed to do the endoscopy and determine where she is losing the blood. 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 The patient is on Flagyl and a CT of the abdomen and pelvis, no free air, done without contrast. Dr. Mann has been following for cardiovascular status. There is a significant parenchymal pleural scarring noted in right lower hemithorax. PAST MEDICAL HISTORY: The patient has a previous medical history including chronic anemia and endoscopy being done, coronary artery disease, chronic diastolic congestive heart failure, history of CVA, depression, hypertension, dyslipidemia, hypothyroidism and supplements. The patient has been going through ____ sinus mechanism at this time, but does have a history of paroxysmal atrial fibrillation, chronic kidney disease, stage III; protein calorie malnutrition; diabetes mellitus type 2; vitamin D deficiency; weakness; history of appendectomy; cataract surgery; and hysterectomy. The patient has a coronary artery stent. SOCIAL HISTORY: No alcohol. No illicit drugs. No smoking for quite some time. FAMILY HISTORY: Mother of gynae cancer, diabetes mellitus, coronary artery disease and the father in an accident. Brother with diabetes and coronary artery disease, at the age of 52. Brother with esophageal cancer at the age of 40-50. Brother of the brain and lung cancer at age of 58. Sister with kidney failure, diabetes, at age of 62. MEDICATIONS: I am going to increase the metoprolol succinate from 25 to 50 and the patient is on Levaquin, switch her to the Cardizem to improve the heart rate and hopefully may convert back into the sinus rhythm. PHYSICAL EXAMINATION: NECK: Supple. Some dyspnea. VITAL SIGNS: Blood pressure 164/68 and with adjusting the medication hopefully that should improve. LUNGS: Diminished breath sounds at bases and bilateral bibasilar rhonchi. HEART: S1 and S2 is regular, tachycardic. ABDOMEN: Soft. SKIN: Color is good, not diaphoretic. EXTREMITIES: No cyanosis. IMPRESSION AND PLAN: No evidence of acute coronary syndrome and with this [place], [place] REPORT OF CONSULTATION [facility]MEN [facility]ATA [id number] UNIT #: [id number] ROOM: 426 DOCTOR: URIEL FARLEY [facility] BIRTHDATE: [birth year] medication maintain optimal heart rate. Dr. Garcia will follow the patient. Until then, we will maintain the optimal heart rate and optimal cardiovascular status. No evidence of acute coronary syndrome. Thank you very much for allowing me to see the patient. I will follow the patient with you. JUWAN TREVINO MD CM:CONSTR:REPORT OF CONSULTATION 1213 05/24/17 1756 interface
--- NOTE | ~2017-05-20 | PR ---
[place], [place] PROGRESS NOTE NAME: MARIA DEL CARMEN PLATA [facility] #: [id number] UNIT #: [id number] ROOM: 426 DOCTOR: DEEPALI LINDA MD BIRTHDATE: [birth year] DOS: 05/25/2017 SUBJECTIVE: The patient is doing much better. She is awake, alert and responsive. REVIEW OF SYSTEMS HEENT: No trouble swallowing. No double vision. No loss of vision. No pain. ENT AND RESPIRATORY: No wheeze. No change in voice. No cough. No shortness of breath. No coughing up blood. No epistaxis. CARDIOLOGIC: No chest pain. No dizziness. No irregular heartbeat. No leg edema. No palpitations. No shortness of breath. HEMATOLOGIC AND LYMPH: No past transfusion. No fatigue. No loss of appetite. No easy bruising. GASTROENEROLOGIC: No change in bowel habits. No vomiting blood. No abdominal cramping. No nausea. No vomiting. No diarrhea. No constipation. No blood in stool. FEMALE REPRODUCTIVE: No dyspareunia. No pelvic pain. MUSCULOSKELETAL: No back pain. No muscle pain or weakness. No tingling/numbness. UROLOGIC: No pain with urination. No difficulty urinating. No frequent urination. NEUROLOGIC: No burning pain in feet. No trouble with coordination. No loss of consciousness. No headache. No tingling/numbness. No memory loss. PHYSICAL EXAMINATION: GENERAL: She is a pleasant woman in no apparent distress. VITAL SIGNS: Blood pressure 135/75, respirations 20, pulse 77, temperature 98.8. HEENT: Normocephalic, atraumatic NECK AND THYROID: Supple. No JVD, thyromegaly, or lymphadenopathy. HEART: Normal S1, S2. Regular rate and rhythm. LUNGS: Clear to auscultation and percussion. ABDOMEN: Soft. Nontender, nondistended. Bowel sounds present. EXTREMITIES: Normal ROM. No clubbing. No edema. LABORATORY DATA: Sodium 138, potassium 3.9, chloride 108, bicarbonate 16. AST 13, ALT 8. White count of 2.4, hemoglobin 9.3, hematocrit 27.4, and platelet count 21,000. ASSESSMENT: 1. Recently diagnosed acute diverticulitis. 2. Neutropenic fever. 3. Sepsis. 4. Myelodysplastic syndrome. 5. Chronic kidney disease. PLAN: The patient will continue growth factors. In addition, transfusion on p.r.n. basis. She can continue broad spectrum antibiotics, etc. I had detailed discussion with the patient about, seemed to understand. Ample time was given to the patient to ask me questions. [place], [place] PROGRESS NOTE NAME: MARIA DEL CARMEN PLATA UNIT #: [id number] ROOM: 426 DOCTOR: DEEPALI LINDA MD BIRTHDATE: [birth year] DEEPALI LINDA MD CM:PNTRANS 1323 [id number] DEEPALI LINDA MD 05/26/17 0033 interface
--- NOTE | ~2017-05-20 | PR ---
[place], [place] PROGRESS NOTE NAME: MARIA DEL CARMEN [facility] #: [id number] UNIT #: [id number] ROOM: [id number] DOCTOR: DEEPALI LINDA MD BIRTHDATE: [birth year] DOS: 05/26/2017 SUBJECTIVE: The patient was well today. She is awake, alert, and responsive. PHYSICAL EXAMINATION: GENERAL: A pleasant woman in no apparent distress. VITAL SIGNS: Blood pressure is 142/64, respiratory rate 20, pulse 88, and temperature 98.2. HEENT: Normocephalic and atraumatic. NECK AND THYROID: Supple. No JVD, thyromegaly, or lymphadenopathy. HEART: Normal S1, S2. Regular rate and rhythm. LUNGS: Clear to auscultation and percussion. ABDOMEN: Soft. Nontender, nondistended. Bowel sounds present. EXTREMITIES: Normal ROM. No clubbing. No edema. LABORATORY DATA: EGFR is 11. White count 3.0, hemoglobin 8.7, hematocrit 25.9, and platelet count of 12,000. ASSESSMENT: 1. Pancytopenia: 2. Acute diverticulitis. 3. Sepsis. PLAN: We will be giving platelets today. In addition, we will repeat blood cultures from the [facility] as well as a peripheral line and D-dimers from [facility]. In the meantime, advised any bleeding or bruising to the closest. Depending on the workup, further intervention discussed. DEEPALI LINDA MD CM:PNTRANS [id number] DEEPALI LINDA MD 05/27/17 0155 interface
[2017-05-20 12:13] LABS: HEMATOCRIT 23.9 % (37.0-47.0); HEMOGLOBIN 8.1 g/dl (12.0-16.0); MEAN CELL VOLUME 84.5 fl (81.0-99.0); MEAN CORPUSCULAR HGB 28.6 pg (27.0-31.0); MEAN CORPUSCULAR HGB CONC 33.9 g/dl (33.0-37.0); MEAN PLATELET VOLUME 7.9 fl (9.6-12.3); PLATELET COUNT AUTOMATED 33 10*3/uL (130-400); RED BLOOD COUNT 2.83 10*6/uL (4.10-5.10); RED CELL DISTRI WIDTH 12.3 % (0-14.5)
[2017-05-20 12:17] LABS: WHITE BLOOD COUNT 1.1 10*3/uL (4.8-10.8)
[2017-05-20 12:20] LABS: ACT PARTIAL THROMBO TIME 25.2 SECONDS (20.8-31.5); INTERNATIONAL NORM RATIO 1.1 (2.0-3.5)
[2017-05-20 12:25] LABS: ALBUMIN 2.7 gm/dl (3.1-4.5); CREATININE 2.53 mg/dL (0.55-1.02); POTASSIUM 3.5 mmol/L (3.5-5.1); TOTAL PROTEIN 6.2 gm/dL (6.4-8.2)
[2017-05-20 12:37] LABS: ATYPICAL LYMPHS 2 % (0-0); BASOPHILS 1 % (0-1); PLATELET SUFFICIENCY LOW (NORMAL); TOTAL CELLS COUNTED 100 #CELLS
[2017-05-21] VITALS: BP 145/52
[2017-05-21 06:06] LABS: HEMATOCRIT 21.8 % (37.0-47.0); HEMOGLOBIN 7.3 g/dl (12.0-16.0); MEAN CELL VOLUME 85.2 fl (81.0-99.0); MEAN CORPUSCULAR HGB 28.5 pg (27.0-31.0); MEAN CORPUSCULAR HGB CONC 33.5 g/dl (33.0-37.0); MEAN PLATELET VOLUME 7.8 fl (9.6-12.3); RED BLOOD COUNT 2.56 10*6/uL (4.10-5.10); RED CELL DISTRI WIDTH 12.3 % (0-14.5)
[2017-05-21 06:12] LABS: ALBUMIN 2.3 gm/dl (3.1-4.5); CREATININE 2.55 mg/dL (0.55-1.02); PHOSPHOROUS 3.7 mg/dL (2.5-4.9); POTASSIUM 3.8 mmol/L (3.5-5.1); TOTAL PROTEIN 5.6 gm/dL (6.4-8.2)
[2017-05-21 07:07] LABS: PLATELET SUFFICIENCY LOW (NORMAL); POLYCHROMASIA SLIGHT; TOTAL CELLS COUNTED 50 #CELLS
[2017-05-21 07:10] LABS: PLATELET COUNT AUTOMATED 20 10*3/uL (130-400)
[2017-05-21 08:00] VITALS: BP 134/50
[2017-05-21 12:00] VITALS: BP 143/45
[2017-05-21 16:00] VITALS: BP 159/39
[2017-05-21 20:00] VITALS: BP 142/50
[2017-05-22] VITALS (12 sets, daily range): BP systolic 113–157; BP diastolic 39–63
[2017-05-22 09:30] LABS: HEMATOCRIT 20.1 % (37.0-47.0); HEMOGLOBIN 6.7 g/dl (12.0-16.0); MEAN CORPUSCULAR HGB CONC 33.3 g/dl (33.0-37.0); MEAN PLATELET VOLUME 10.1 fl (9.6-12.3); RED BLOOD COUNT 2.31 10*6/uL (4.10-5.10); RED CELL DISTRI WIDTH 12.6 % (0-14.5)
[2017-05-22 09:52] LABS: PLATELET SUFFICIENCY LOW (NORMAL); TOTAL CELLS COUNTED 50 #CELLS
[2017-05-22 09:53] LABS: SCHISTOCYTES FEW
[2017-05-22 09:56] LABS: PLATELET COUNT AUTOMATED 8 10*3/uL (130-400); WHITE BLOOD COUNT 0.8 10*3/uL (4.8-10.8)
[2017-05-22 18:14] LABS: HEMOGLOBIN 8.7 g/dl (12.0-16.0)
[2017-05-22 20:46] LABS: HEMATOCRIT 29.8 % (37.0-47.0); HEMOGLOBIN 10.2 g/dl (12.0-16.0)
[2017-05-23] VITALS (7 sets, daily range): BP systolic 140–179; BP diastolic 43–82
[2017-05-23 06:14] LABS: HEMATOCRIT 30.6 % (37.0-47.0); HEMOGLOBIN 10.3 g/dl (12.0-16.0); MEAN CELL VOLUME 86.9 fl (81.0-99.0); MEAN CORPUSCULAR HGB 29.3 pg (27.0-31.0); MEAN CORPUSCULAR HGB CONC 33.7 g/dl (33.0-37.0); MEAN PLATELET VOLUME 9.1 fl (9.6-12.3); RED BLOOD COUNT 3.52 10*6/uL (4.10-5.10); RED CELL DISTRI WIDTH 12.9 % (0-14.5)
[2017-05-23 06:16] LABS: CREATININE 2.95 mg/dL (0.55-1.02); POTASSIUM 3.7 mmol/L (3.5-5.1)
[2017-05-23 06:42] LABS: BURR CELLS MODERATE; PLATELET SUFFICIENCY LOW (NORMAL); TOTAL CELLS COUNTED 50 #CELLS
[2017-05-23 06:49] LABS: PLATELET COUNT AUTOMATED 11 10*3/uL (130-400); WHITE BLOOD COUNT 1.3 10*3/uL (4.8-10.8)
[2017-05-24] VITALS: BP 163/54
[2017-05-24 02:49] LABS: HEMOGLOBIN 9.5 g/dl (12.0-16.0); MEAN CELL VOLUME 87.2 fl (81.0-99.0); MEAN CORPUSCULAR HGB 29.6 pg (27.0-31.0); MEAN CORPUSCULAR HGB CONC 33.9 g/dl (33.0-37.0); RED BLOOD COUNT 3.21 10*6/uL (4.10-5.10); WHITE BLOOD COUNT 2.7 10*3/uL (4.8-10.8)
[2017-05-24 03:00] LABS: ALBUMIN 2.2 gm/dl (3.1-4.5); CREATININE 3.02 mg/dL (0.55-1.02); PLATELET COUNT AUTOMATED 33 10*3/uL (130-400); POTASSIUM 3.3 mmol/L (3.5-5.1); TOTAL PROTEIN 5.6 gm/dL (6.4-8.2)
[2017-05-24 03:21] LABS: PLATELET SUFFICIENCY LOW (NORMAL); TOTAL CELLS COUNTED 100 #CELLS
[2017-05-24 03:22] LABS: BURR CELLS FEW
[2017-05-24 06:00] VITALS: BP 157/79
[2017-05-24 08:00] VITALS: BP 158/96
[2017-05-24 12:00] VITALS: BP 157/80
[2017-05-24 16:00] VITALS: BP 158/80
[2017-05-24 20:00] VITALS: BP 152/72
[2017-05-25] VITALS: BP 153/68
[2017-05-25 06:10] LABS: ALBUMIN 2.1 gm/dl (3.1-4.5); CREATININE 3.35 mg/dL (0.55-1.02); POTASSIUM 3.9 mmol/L (3.5-5.1); TOTAL PROTEIN 5.5 gm/dL (6.4-8.2); VANCOMYCIN TROUGH 16.9 ug/mL (10-20)
[2017-05-25 06:28] LABS: HEMATOCRIT 27.4 % (37.0-47.0); HEMOGLOBIN 9.3 g/dl (12.0-16.0); MEAN CELL VOLUME 87.8 fl (81.0-99.0); MEAN CORPUSCULAR HGB 29.8 pg (27.0-31.0); MEAN CORPUSCULAR HGB CONC 33.9 g/dl (33.0-37.0); MEAN PLATELET VOLUME 10.8 fl (9.6-12.3); RED BLOOD COUNT 3.12 10*6/uL (4.10-5.10); RED CELL DISTRI WIDTH 13.3 % (0-14.5); WHITE BLOOD COUNT 2.4 10*3/uL (4.8-10.8)
[2017-05-25 06:55] LABS: ATYPICAL LYMPHS 2 % (0-0); BURR CELLS MODERATE; PLATELET SUFFICIENCY LOW (NORMAL); POLYCHROMASIA SLIGHT; TOTAL CELLS COUNTED 50 #CELLS
[2017-05-25 06:56] LABS: PLATELET COUNT AUTOMATED 21 10*3/uL (130-400)
[2017-05-25 08:00] VITALS: BP 135/75
[2017-05-25 12:00] VITALS: BP 153/60
[2017-05-25 16:00] VITALS: BP 165/69
[2017-05-25 20:00] VITALS: BP 166/60
[2017-05-26] VITALS (9 sets, daily range): BP systolic 142–172; BP diastolic 48–64
[2017-05-26 06:53] LABS: HEMATOCRIT 25.9 % (37.0-47.0); HEMOGLOBIN 8.7 g/dl (12.0-16.0); MEAN CELL VOLUME 87.5 fl (81.0-99.0); MEAN CORPUSCULAR HGB 29.4 pg (27.0-31.0); MEAN CORPUSCULAR HGB CONC 33.6 g/dl (33.0-37.0); MEAN PLATELET VOLUME 11.6 fl (9.6-12.3); RED BLOOD COUNT 2.96 10*6/uL (4.10-5.10); RED CELL DISTRI WIDTH 13.4 % (0-14.5)
[2017-05-26 06:59] LABS: ALBUMIN 2.1 gm/dl (3.1-4.5); ALKALINE PHOSPHATASE 55 U/L (45-117); CHLORIDE 110 mmol/L (98-107); CREATININE 3.89 mg/dL (0.55-1.02); PHOSPHOROUS 4.1 mg/dL (2.5-4.9); POTASSIUM 4.1 mmol/L (3.5-5.1); SGPT/ALT 9 U/L (12-78); SODIUM 140 mmol/L (136-145); TOTAL PROTEIN 5.4 gm/dL (6.4-8.2)
[2017-05-26 07:14] LABS: TOTAL CELLS COUNTED 100 #CELLS
[2017-05-26 07:15] LABS: BURR CELLS MODERATE; PLATELET SUFFICIENCY LOW (NORMAL); SCHISTOCYTES FEW
[2017-05-26 07:17] LABS: PLATELET COUNT AUTOMATED 12 10*3/uL (130-400)
[2017-05-26 07:28] LABS: BUN 52 mg/dl (7-24); SGOT/AST < 3 IU/L (3-35)
[2017-05-26 18:12] LABS: FIBRINOGEN 309 mg/dl (178-460)
[2017-05-27] VITALS (10 sets, daily range): BP systolic 109–177; BP diastolic 37–74
[2017-05-27 06:53] LABS: HEMATOCRIT 19.9 % (37.0-47.0); HEMOGLOBIN 6.8 g/dl (12.0-16.0); MEAN CELL VOLUME 87.3 fl (81.0-99.0); MEAN CORPUSCULAR HGB 29.8 pg (27.0-31.0); MEAN CORPUSCULAR HGB CONC 34.2 g/dl (33.0-37.0); MEAN PLATELET VOLUME 12.3 fl (9.6-12.3); RED BLOOD COUNT 2.28 10*6/uL (4.10-5.10); RED CELL DISTRI WIDTH 13.6 % (0-14.5); WHITE BLOOD COUNT 2.1 10*3/uL (4.8-10.8)
[2017-05-27 07:23] LABS: BURR CELLS MODERATE; PLATELET SUFFICIENCY LOW (NORMAL); SCHISTOCYTES FEW; TOTAL CELLS COUNTED 100 #CELLS
[2017-05-27 07:26] LABS: PLATELET COUNT AUTOMATED 14 10*3/uL (130-400)
[2017-05-27 07:30] LABS: ALBUMIN 2.1 gm/dl (3.1-4.5); CREATININE 4.05 mg/dL (0.55-1.02); PHOSPHOROUS 3.6 mg/dL (2.5-4.9); POTASSIUM 3.3 mmol/L (3.5-5.1)
[2017-05-27] MEDS ORDERED: FLAGYL500 MG IV (18:07)
[2017-05-27] MEDS ORDERED: DILTIAZEM 24HR120 MG PO (18:07)
[2017-05-27] MEDS ORDERED: ONDANSETRON4 MG/2 M3 IV (18:07)
[2017-05-27] MEDS ORDERED: Insulin Lispro, Reco SC (18:07)
[2017-05-27] MEDS ORDERED: TOPROL XL50 M1 PO (18:07)
[2017-05-27] MEDS ORDERED: VANCOCIN1000 MG/25 IV (18:07)
[2017-05-27] MEDS ORDERED: CEFTRIAXON2 GM/50 ML IV (18:08)
[2017-05-28] VITALS: BP 157/60
[2017-05-28 04:00] VITALS: BP 144/50
[2017-05-28 06:16] LABS: HEPATITIS B SURFACE AG Negative (Negative); HEPATITIS C VIRUS ANTIBODY <0.1 s/co (0.0-0.9)
[2017-05-28 08:17] LABS: COMPLEMENT C4 001834 20 mg/dL (14-44); RHEUMATOID ARTHRITIS FACTOR <10.0 IU/mL (0.0-13.9)
[2017-05-28 15:08] LABS: A/G RATIO 1.1 (0.7-1.7); ALBUMIN 2.5 g/dL (2.9-4.4); ALPHA-1-GLOBULIN 0.3 g/dL (0.0-0.4); ALPHA-2-GLOBULIN 0.6 g/dL (0.4-1.0); BETA GLOBULIN 0.6 g/dL (0.7-1.3); GAMMA GLOBULIN 0.8 g/dL (0.4-1.8); GLOBULIN, TOTAL 2.3 g/dL (2.2-3.9); M-SPIKE Not Observed g/dL (Not Observed); TOTAL PROTEIN, SERUM 4.8 g/dL (6.0-8.5)
[2017-05-28 16:10] LABS: ALBUMIN, URINE RANDOM 58.3 % (.); ALPHA-1-GLOBULIN, URINE 1.5 % (.); ALPHA-2-GLOBULIN, URINE 11.9 % (.); GAMMA GLOBULIN, URINE 20.6 % (.); M-SPIKE % Not Observed % (Not Observed); PROTEIN,TOTAL - URINE RANDOM 169.2 mg/dL (Not Estab.)
[2017-05-28 17:07] LABS: FREE LAMBDA LIGHT CHAINS 68.8 mg/L (5.7-26.3); KAPPA/LAMBDA RATIO 0.96 (0.26-1.65)
[2017-05-29 10:08] LABS: GLOMERULAR BASEMENT 082719 4 units (0-20)
[2017-05-29 15:06] LABS: ATYPICAL PANCA <1:20 titer (Neg:<1:20); CYTOPLASMIC (C-ANCA) 1:40 titer (Neg:<1:20)
== END 2017-05-28 08:43 | disposition short-term general hospital (02) | DRG 871 ==
LOC: ED 11:36 → 4E 13:36 → EDHOLD 13:36 → 4E 13:47
PROVIDERS: Emergency Medicine; Internal Medicine; Internal Medicine Hematology & Oncology; Internal Medicine Nephrology; Student in an Organized Health Care Education/Training Program
PROC: 30233N1 Transfusion of Nonautologous Red Blood Cells into Peripheral Vein, Percutaneous Approach (ICD-10-PCS; principal; 2017-05-22)
PROC: 30233R1 Transfusion of Nonautologous Platelets into Peripheral Vein, Percutaneous Approach (ICD-10-PCS; principal; 2017-05-22)
DX: A41.9 Sepsis, unspecified organism (principal); N17.0 Acute kidney failure with tubular necrosis; E43 Unspecified severe protein-calorie malnutrition; D61.810 Antineoplastic chemotherapy induced pancytopenia; E87.2 Acidosis; D46.C Myelodysplastic syndrome with isolated del(5q) chromosomal abnormality; E11.22 Type 2 diabetes mellitus with diabetic chronic kidney disease; E11.40 Type 2 diabetes mellitus with diabetic neuropathy, unspecified; E11.65 Type 2 diabetes mellitus with hyperglycemia; K57.32 Diverticulitis of large intestine without perforation or abscess without bleeding; I13.0 Hypertensive heart and chronic kidney disease with heart failure and stage 1 through stage 4 chronic kidney disease, or unspecified chronic kidney disease; I50.32 Chronic diastolic (congestive) heart failure; N18.4 Chronic kidney disease, stage 4 (severe); D63.8 Anemia in other chronic diseases classified elsewhere; R65.20 Severe sepsis without septic shock; I25.10 Atherosclerotic heart disease of native coronary artery without angina pectoris; F32.9 Major depressive disorder, single episode, unspecified; E78.5 Hyperlipidemia, unspecified; E03.9 Hypothyroidism, unspecified; D46.9 Myelodysplastic syndrome, unspecified; K52.9 Noninfective gastroenteritis and colitis, unspecified; E55.9 Vitamin D deficiency, unspecified; I48.0 Paroxysmal atrial fibrillation; L89.892 Pressure ulcer of other site, stage 2; K21.9 Gastro-esophageal reflux disease without esophagitis; Z68.24 Body mass index [BMI] 24.0-24.9, adult; Z90.710 Acquired absence of both cervix and uterus; Z95.5 Presence of coronary angioplasty implant and graft; I25.2 Old myocardial infarction; Z86.73 Personal history of transient ischemic attack (TIA), and cerebral infarction without residual deficits; Z79.4 Long term (current) use of insulin; Z79.899 Other long term (current) drug therapy; Z82.49 Family history of ischemic heart disease and other diseases of the circulatory system; Z84.2 Family history of other diseases of the genitourinary system; Z83.3 Family history of diabetes mellitus; Z80.0 Family history of malignant neoplasm of digestive organs; Z80.1 Family history of malignant neoplasm of trachea, bronchus and lung; Z80.8 Family history of malignant neoplasm of other organs or systems; Z84.1 Family history of disorders of kidney and ureter